=== PATIENT | female | born 1945 | race Caucasian/White ===

== ENCOUNTER 2017-02-13 10:57 | Emergency (ER) | payer MEDICARE ==
[2017-02-13 14:54] VITALS: BP 125/72
[2017-02-13 15:50] LABS: Hematocrit 30 % (35-47); Hemoglobin 9.6 g/dl (12.0-16.0); Mean Corpuscular HGB Conc 32 g/dl (31-36); Mean Corpuscular Hemoglobin 31 pg (27-31); Mean Corpuscular Volume 96 fL (80-97); Mean Platelet Volume 8 um3 (7.4-10.4); Red Cell Distribution Width 14 % (10.5-15); White Blood Count 5.9 10^3/ul (3.5-10.8)
[2017-02-13 16:05] LABS: Albumin 2.9 g/dL (3.2-5.2); C Reactive Protein 2.36 mg/L (< 5.00); Calcium 8.5 mg/dL (8.6-10.3); EGFR African American 46.8 (>60); EGFR Non-African American 36.4 (>60); Globulin 2.7 g/dL (2-4); Potassium 3.9 mmol/L (3.5-5.0); Total Bilirubin 0.3 mg/dL (0.2-1.0); Total Protein 5.6 g/dL (6.4-8.9)
[2017-02-13 16:18] LABS: Urine Bilirubin Negative (Negative); Urine Glucose Negative (Negative); Urine Nitrite Negative (Negative)
--- NOTE | 2017-02-14 11:35 | ED ---
Oscar Bansal Alfonso, scribed for Kike Coe MD on 02/13/17 at 1438 . GI/ HPI - HPI Summary HPI Summary: This patient is a 71 year old F presenting to [facility] accompanied by son with a chief complaint of being unable to urinate since this morning, This is acute on chronic. The patient rates the pain 9/10 in severity. Symptoms aggravated by nothing. Symptoms alleviated by nothing. She reports medication noncompliance with Lasix. - History of Current Complaint Chief Complaint: EDUrogenitalProblems Time Seen by Provider: 02/13/17 14:07 Stated Complaint: UNABLE TO URINATE/RX REFILL Hx Obtained From: Patient Onset/Duration: Started Hours Ago, Still Present Timing: Constant Severity: Moderate Current Severity: Moderate Pain Intensity: 9 - /10 Associated Signs and Symptoms: Positive: Other: - unable to urinate Aggravating Factor(s): Nothing Alleviating Factor(s): Nothing - Allergy/Home Medications Allergies/Adverse Reactions: Allergies Allergy/AdvReac Type Severity Reaction Status Date / Time Adalimumab [From Humira] Allergy Rash Verified 02/13/17 13:21 Pregabalin [From Lyrica] Allergy Rash Verified 02/13/17 13:21 PMH/Surg Hx/FS Hx/Imm Hx Sensory History: Denies: Hx Deafness Opthamlomology History: Denies: Hx Legally Blind Infectious Disease History: No Infectious Disease History: Denies: Traveled Outside the [place] in Last 30 Days - Family History Known Family History: Positive: Cardiac Disease, Diabetes - Social History Alcohol Use: Occasionally Substance Use Type: Reports: None Smoking Status (MU): Never Smoked Tobacco Review of Systems Negative: Fever Positive: other - unable to urinate All Other Systems Reviewed And Are Negative: Yes Physical Exam Triage Information Reviewed: Yes Vital Signs On Initial Exam: Initial Vitals Temp Pulse Resp BP Pulse Ox 99.1 F 81 18 117/68 93 02/13/17 11:00 02/13/17 11:00 02/13/17 11:00 02/13/17 11:00 02/13/17 11:00 Vital Signs Reviewed: Yes Appearance: Positive: Well-Appearing, No Pain Distress Skin: Positive: Warm, Skin Color Reflects Adequate Perfusion, Dry Head/Face: Positive: Normal Head/Face Inspection Eyes: Positive: Normal ENT: Positive: Normal ENT inspection Neck: Positive: Supple, Nontender Respiratory/Lung Sounds: Positive: Clear to Auscultation Cardiovascular: Positive: RRR Abdomen Description: Positive: Nontender, Soft Bowel Sounds: Positive: Present Musculoskeletal: Positive: Other - Chronic venous stasis changes. Peripheral edema bilateral LE. Neurological: Positive: Normal, Sensory/Motor Intact, Alert, Oriented to Person Place, Time, CN Intact II-III Psychiatric: Positive: Affect/Mood Appropriate - [place] Coma Scale Coma Scale Total: 15 Diagnostics - Vital Signs Vital Signs Temp Pulse Resp BP Pulse Ox 02/13/17 13:16 98.4 F 81 19 125/78 93 02/13/17 13:14 125/78 02/13/17 11:00 99.1 F 81 18 117/68 93 - Laboratory Lab Results: Lab Results 02/13/17 02/13/17 02/13/17 Range/Units 15:43 15:43 15:43 WBC 5.9 (3.5-10.8) 10^3/ul RBC 3.10 L (4.0-5.4) 10^6/ul Hgb 9.6 L (12.0-16.0) g/dl Hct 30 L (35-47) % MCV 96 (80-97) fL MCH 31 (27-31) pg MCHC 32 (31-36) g/dl RDW 14 (10.5-15) % Plt Count 212 (150-450) 10^3/ul MPV 8 (7.4-10.4) um3 Neut % (Auto) 72.8 (38-83) % Lymph % (Auto) 14.9 L (25-47) % [place] % (Auto) 9.6 H (1-9) % Eos % (Auto) 2.0 (0-6) % Baso % (Auto) 0.7 (0-2) % Absolute Neuts (auto) 4.3 (1.5-7.7) 10^3/ul Absolute Lymphs (auto) 0.9 L (1.0-4.8) 10^3/ul Absolute Monos (auto) 0.6 (0-0.8) 10^3/ul Absolute Eos (auto) 0.1 (0-0.6) 10^3/ul Absolute Basos (auto) 0 (0-0.2) 10^3/ul Absolute Nucleated RBC 0 10^3/ul Nucleated RBC % 0 Sodium 139 (133-145) mmol/L Potassium 3.9 (3.5-5.0) mmol/L Chloride 103 (101-111) mmol/L Carbon Dioxide 33 H (22-32) mmol/L Anion Gap 3 (2-11) mmol/L BUN 30 H (6-24) mg/dL Creatinine 1.43 H (0.51-0.95) mg/dL Est GFR ( Amer) 46.8 (>60) Est GFR (Non-Af Amer) 36.4 (>60) BUN/Creatinine Ratio 21.0 H (8-20) Glucose 124 H (70-100) mg/dL Calcium 8.5 L (8.6-10.3) mg/dL Total Bilirubin 0.30 (0.2-1.0) mg/dL AST 26 (13-39) U/L ALT 19 (7-52) U/L Alkaline Phosphatase 112 H (34-104) U/L C-Reactive Protein 2.36 (< 5.00) mg/L B-Natriuretic Peptide 309 H ( - 100) pg/mL Total Protein 5.6 L (6.4-8.9) g/dL Albumin 2.9 L (3.2-5.2) g/dL Globulin 2.7 (2-4) g/dL Albumin/Globulin Ratio 1.1 (1-3) Urine Color Urine Appearance Urine pH (5-9) Ur Specific [place] (1.010-1.030) Urine Protein (Negative) Urine Ketones (Negative) Urine Blood (Negative) Urine Nitrate (Negative) Urine Bilirubin (Negative) Urine Urobilinogen (Negative) Ur Leukocyte Esterase (Negative) Urine Glucose (Negative) 02/13/17 Range/Units 16:00 WBC (3.5-10.8) 10^3/ul RBC (4.0-5.4) 10^6/ul Hgb (12.0-16.0) g/dl Hct (35-47) % MCV (80-97) fL MCH (27-31) pg MCHC (31-36) g/dl RDW (10.5-15) % Plt Count (150-450) 10^3/ul MPV (7.4-10.4) um3 Neut % (Auto) (38-83) % Lymph % (Auto) (25-47) % [place] % (Auto) (1-9) % Eos % (Auto) (0-6) % Baso % (Auto) (0-2) % Absolute Neuts (auto) (1.5-7.7) 10^3/ul Absolute Lymphs (auto) (1.0-4.8) 10^3/ul Absolute Monos (auto) (0-0.8) 10^3/ul Absolute Eos (auto) (0-0.6) 10^3/ul Absolute Basos (auto) (0-0.2) 10^3/ul Absolute Nucleated RBC 10^3/ul Nucleated RBC % Sodium (133-145) mmol/L Potassium (3.5-5.0) mmol/L Chloride (101-111) mmol/L Carbon Dioxide (22-32) mmol/L Anion Gap (2-11) mmol/L BUN (6-24) mg/dL Creatinine (0.51-0.95) mg/dL Est GFR ( Amer) (>60) Est GFR (Non-Af Amer) (>60) BUN/Creatinine Ratio (8-20) Glucose (70-100) mg/dL Calcium (8.6-10.3) mg/dL Total Bilirubin (0.2-1.0) mg/dL AST (13-39) U/L ALT (7-52) U/L Alkaline Phosphatase (34-104) U/L C-Reactive Protein (< 5.00) mg/L B-Natriuretic Peptide ( - 100) pg/mL Total Protein (6.4-8.9) g/dL Albumin (3.2-5.2) g/dL Globulin (2-4) g/dL Albumin/Globulin Ratio (1-3) Urine Color Yellow Urine Appearance Clear Urine pH 6.0 (5-9) Ur Specific [place] 1.015 (1.010-1.030) Urine Protein Negative (Negative) Urine Ketones Negative (Negative) Urine Blood Negative (Negative) Urine Nitrate Negative (Negative) Urine Bilirubin Negative (Negative) Urine Urobilinogen Negative (Negative) Ur Leukocyte Esterase Negative (Negative) Urine Glucose Negative (Negative) Result Diagrams: 02/13/17 15:43 09/08/17 15:43 Lab Statement: Any lab studies that have been ordered have been reviewed, and results considered in the medical decision making process. GIGU Course/Dx - Course Course Of Treatment: This was a difficult evaluation. Ms. Mg presented with a confusing story of not being able to urinate and not wanting to take her lassix because she urinated too much. I tried to get records from Dr. Maria but she is a new patient and the records haven't arrived yet. I tried for quite some time to get records from [place] as she is on many medications and her history is cloudy as she is not a good historian and her son who brings her in lives here and hasn't been involved in her care until now. Eventually, I asked the hospitalists to consult and it seems that Ms. Mg now is only concerned about being out of her pain medications and has no other C/O. The RN in her [place]. MD's office said that she often finishes her medication too early in the month. I will give her a script to get her through until her 1st appointment with Dr. Maria. - Diagnoses Provider Diagnoses: Chronic pain - Physician Notifications Discussed Care Of Patient With: Alexa Bowie Time Discussed With Above Provider: 17:18 Instructed by Provider To: Other - Consulted Dr. Bowie (hospitalist) who will see the pt in the ED. Discharge - Discharge Plan Condition: Stable Disposition: HOME Prescriptions: oxyCODONE SR TAB(*) [Oxycontin 10 mg (*)] 10 mg PO Q8HR #20 tab.sr MDD 3 Patient Education Materials: Chronic Pain (ED) Referrals: [facility]ERR[facility] [Outside] - 3 Days Neeraj Sharma MD [Medical Doctor] - 3 Days The documentation as recorded by the Oscar rider Alfonso accurately reflects the service I personally performed and the decisions made by me, Kike Coe MD.
== END 2017-02-13 18:52 | disposition home or self-care (01) ==
LOC: ED 10:57
DX: G89.29 Other chronic pain (principal); Z91.14 Patient's other noncompliance with medication regimen; R33.9 Retention of urine, unspecified
CPT/HCPCS: 36415; 80053; 81003; 83880; 85025; 86140; 99284

== ENCOUNTER 2018-09-12 16:49 | Emergency (ER) | payer MEDICARE, MEDICAID ==
--- OUTSIDE RECORDS SUMMARY | 2018-09-12 16:54 | XMS REPORT | Continuity of Care Document ---
:1945 External Reference #:[id number] Author Name Aren Phillips DO Address [address] [place] [address] Care Team Providers Name Role Phone Tanisha Maria MD Care Team Information Rewrite Editor Unavailable Tanisha Maria MD Primary Care Physician Unavailable Payers Date Identification Numbers Payment Provider Subscriber Policy Number: [id number] Medicare Beto Mg PayID: [id number] [facility] [address] [place] [address] Policy Number: [id number] Medicaid/Medicare Beto Mg Group Name: 2 1 [facility] [employer] PayID: [id number] [address] [place] [address] Advance Directives Description No Information Available Problems Description No Information Family History Description No Information Available Social History Type Date Description Comments Sex Unknown Tobacco Use Start: Unknown Patient has never smoked Smoking Status Reviewed: 08/23/18 Patient has never smoked Allergies, Adverse Reactions, Alerts Date Description Reaction Status Severity Comments 05/06/2018 Adalimumab Free Text Active Severe 05/06/2018 Codeine Active 05/06/2018 Iodine Active 05/06/2018 Lyrica Free Text Active Medications Medication Date Status Form Strength Qnty SIG Indications Ordering Provider Vesicare 06/07 Active Tablets 5mg 90tab 1 by mouth s every day DO Alan Esomeprazole 04/[address] 40mg 90cap 1 tab bid X 6 K21.9 Crow Magnesium s wks then once Tanisha, a day Shingrix 02/03 Active Suspension 50mcg/0.5 1unit intramuscular Maria Rec ML s x 1 then Tanisha, repeat in 4 MD months Sertraline 11/30 Active Tablets 100mg 90tab 1 by mouth F32.9 Maria, HCL s every day MD Tanisha Fentanyl 08/11 Active Patches 25mcg/HR 1 patch every 72HR 72 hours Zolpidem 05/21 Active Tablets 10mg 30tab 1/2 to1 tab by Crow Tartrate /2016 s mouth every Tanisha, night at MD bedtime as needed mdd 1 Furosemide Active Tablets 40mg 30tab 1/2 in in the Maria, / s morning 1/2 in Tanisha, at night by mouth daily Ferrous Active Tablets 324(65Fe) 1 by mouth Unknown Sulfate mg once a day Gabapentin Active Capsules 300mg now 4 a day---3 times a day as needed Flax Seed Oil Active Capsules 1000mg 2 by mouth Unknown every day Carvedilol Active Tablets 25mg 60tab take 1 tablet Maria, / s by mouth twice Tanisha, a day Pravastatin Active Tablets 40mg 90tab take 1 tablet Maria, Sodium s by mouth once Tanisha, daily Tramadol HCL Active Tablets 50mg tid prn Peg-3350/Elec 06/07 Hx Solution 236gm 4000m by mouth as Aren barclay /2017 Terri Phillips, - DO 08/23 Immunizations CPT Code Status Date Vaccine Lot # [id number] Given 03/04/2018 Influenza Virus Vaccine, Quadrivalent, Split, Preservative Free 54242 Given 07/02/2017 Pneumococcal Conjugate Vaccine 13 Valent For Intramuscular Use 27891 Given 02/19/2017 Influenza Virus Vaccine, Quadrivalent, Split, Preservative Free 75990 Given 12/21/2015 Tetanus, Diphtheria Toxoids/Acellular Pertussis Vaccine 7 Or > 17906 Given 12/21/2015 Pneumococcal Conjugate Vaccine 13 Valent For Intramuscular Use Vital Signs Date Vital Result Comment 08/23/2018 9:46am Height 65 inches 5'5" Weight 182.00 lb BP Systolic 130 mmHg BP Diastolic 76 mmHg Heart Rate 93 /min BMI (Body Mass Index) 30.3 kg/m2 06/07/2018 10:53am Height 65 inches 5'5" Weight 189.00 lb BP Systolic 130 mmHg BP Diastolic 80 mmHg Heart Rate 92 /min BMI (Body Mass Index) 31.4 kg/m2 Results Test Date Facility Test Result H/L Range Note CBC W/Auto 07/19/2018 [facility] White Blood 6.0 3/UL 4.8-10.8 Differential [address] Count Ser (!) [place] [address] Auto CNT [phone] RBC Red Blood Count 3.56 X106/UL Low 4.20-6.20 Hemoglobin Blood 11.3 g/dL Low 12.0-18.0 Hematocrit 37.3 % 35-52 MCV (Corpuscular Volume) 105.0 FL High 79-97 MCH (Corpuscular Hemoglobin) 31.9 pg High 27-31 MCHC (Corpuscular Hemog Conc) 30.4 g/dL Low 32.0-36.0 RDW 16.3 % High 10.5-15.0 Platelet Count Blood Auto CNT 133 X103/UL Low 150-450 MPV 9.0 FL 7.4-10.4 Lymph% 30.7 % 20.0-45.0 [place]% 5.6 % 1.0-9.0 Neutrophil % 63.7 % 38.0-83.0 Absolute Lymphocytes 1.8 X103/UL 1.0-4.8 Absolute Monocytes 0.3 X103/UL 0.0-0.8 Absolute Neutrophils 3.8 X103/UL 1.5-7.7 CMP(!) 07/19/2018 [facility] Sodium(!) 141 mEq/L 134- 149 [address] [place] [address] [phone] Potassium(!) 4.5 mEq/L 3.6-5.5 Chloride Serum/Plasma(!) 107 mEq/L 94-112 Carbon Dioxide Ser/Plasm(!) 29 mEq/L 21-33 BUN - Urea Nitrogen(!) 38 mg/dL High 6-24 Calcium Ser/Plasma Mass/Vol(!) 9.0 mg/dL 8.6-10.2 Creatinine Serum Mass/Vol(!) 1.7 mg/dL High 0.5-1.4 Glucose Serum(!) 71 mg/dL 70-105 BUN/Creatinine Ratio(!) 22.4 RATIO 8.0-36 Albumin Serum/Plasma(!) 3.9 g/dL 3.5-5.2 Alkaline Phosphatase(!) 109 U/L 39-117 Bilirubin Total Mass/Vol(!) 0.5 mg/dL 0.2-1.3 Ast - Sgot 30 U/L 5-34 Alt - SGPT 50 U/L High 10-40 Protein Total 5.8 g/dL Low 6.2-8.1 Laboratory 07/19/2018 [facility] TSH Thyroid 2.92 0.38- 4.[address] [facility] [place] [address] Hormone(!) [phone] Laboratory 07/19/2018 [facility] Free T4 (Free 0.71 ng/dL N 0.61-1.12 1 test finding Thyroxine) Laboratory 07/19/2018 [facility] Stool Culture SEE RESULT 2, 3 test finding BELOW Laboratory 05/05/2018 N2N/CCD Import Magnesium 2.2 mg/dL 1.9-2.7 test finding Basic 05/05/2018 N2N/CCD Import Anion Gap 7 mmol/L 2-11 Metabolic Panel BUN/Creatinine Ratio 24.7 1 High 8-20 Blood Urea Nitrogen 46 mg/dL High 6-24 Calcium 9.3 mg/dL 8.6-10.3 Chloride 108 mmol/L 101-111 Co2 Carbon Dioxide 29 mmol/L 22-32 Creatinine 1.86 mg/dL High 0.51-0.95 Egfr 32.4 1 4 Egfr Non- 26.8 1 Glucose 59 mg/dL Low 70-100 Potassium 4.1 mmol/L 3.5-5 Sodium 144 mmol/L 135-145 Laboratory test finding 01/21/2018 N2N/CCD Import Potassium 4.4 mmol/L 3.5-5 Laboratory test finding 01/08/2018 N2N/CCD Import Potassium 5.2 mmol/L High 3.5-5 1 [id number] Verbal to EDWARDO GARDNER by [id number] at 0805 on 07/22/18. NO PLAIN CONTAINER RE 3 SEE RESULT BELOW Name: BETO MG : [address]: Aren Phillips DO Acct: [id number] Unit: [id number] AGE: 73 Location: [facility] Re07/19/18 SEX: F Status: REG REF SPEC: [id number] CHRISTIE: 07/19/18-[address]: Aren Phillips DO REQ: [id number] RECD: 07/21/18 STATUS: COMP _ SOURCE: STOOL SPDESC: ORDERED: Stool Culture, O P: Giar/Crypt COMMENTS: [id number] Verbal to EDWARDO GARDNER by [id number] at 0805 on 07/22/18. NO PLAIN CONTAINER RECEIVED Procedure Result Reported Site Stool Culture Final 07/23/18- 1135 ML Result No enteric pathogens isolated Testing for Salmonella, Shigella, Aeromonas, Plesiomonas, Yersinia and Campylobacter are included in a Stool Culture. Vibrio spp not routinely tested for in a stool culture. If testing is desired, please request specifically when placing test order. Sensitivities not routinely performed on stool isolates, as antibiotics may prolong the carriage rate of bacteria. Please contact the microbiology lab if sensitivities are required. Stool Specimen Description Final 07/22/18- 0821 ML Test not performed Shiga Toxin 1 2 Final 07/22/18- 1051 ML Organism 1 Negative Shiga Toxin 1 2 Immunochromatographic Assay CONTINUED ON NEXT PAGE DEPARTMENT OF PATHOLOGY, [address] [place] [address] Lewis Car M.D. Director [facility] # [id number] Patient: BETO MG [id number] (Continued) Specimen: [id number] Collected: 07/19/18-1002 Received: 07/21/18-1546 (Continued) Procedure Result Reported Site Shiga Toxin 1 2 Final (continued) 07/22/18- 1051 O P: Giardia/Cryptospor Screen Final 07/23/18- 1402 ML Organism 1 Neg Cryptosporidium/Giardia Giardia and cryptosporidium antigen testing performed by enzyme immunoassay. If patient is immunocompromised or has traveled to or is from a developing country, a full ova and parasite exam with microscopic (OPMIC) is recommended. All samples will be held 21 days in case full ova and parasite testing is requested. Contact the Microbiology Department at [phone]. TEST LIMITATIONS: As with all diagnostic procedures, the results obtained should be used in conjunction with other clinical information available the physician, including confirmation by another method. Negative results can occur in samples containing antigen below lower limits of detection of the assay. One negative specimen does not rule out the possibility of a parasitic infection. To improve detection it is recommended that three specimens be collected on separate days over a period of not more than seven days. The use of colonic washes, aspirates or other diluted sample types has not been established and could affect the performance of the assay. Stool samples contaminated with an oily or particulate base (eg. Barium, mineral oil etc.) could interfere with the test and are not recommended. * ML - Main Lab . END OF REPORT DEPARTMENT OF PATHOLOGY, [address] [place] [address] Lewis Car M.D. Director [facility] # [id number] 4 Because ethnic data is not always readily available, this report includes an eGFR for both -Americans and non- Americans. The National Kidney Disease Education Program (NKDEP) does not endorse the use of the MDRD equation for patients that are not between the ages of 18 and 70, are , have extremes of body size, muscle mass, or nutritional status, or are non- or non-. According to the National Kidney Foundation, irrespective of diagnosis, the stage of the disease is based on the level of kidney function: Stage Description GFR(mL/min/1.73 m(2)) 1 Kidney damage with normal or decreased GFR 90 2 Kidney damage with mild decrease in GFR 60-89 3 Moderate decrease in GFR 30-59 4 Severe decrease in GFR 15-29 5 Kidney failure <15 (or dialysis) Procedures Date Code Description Status 02/24/2018 77427 Zoster (Shingles) Vaccine (HZV), Recombinant, Subunit, Completed Adjuvanted Encounters Type Date Location Provider Dx Diagnosis Office Visit 06/07/2018 Gastroenterology Aren Phillips K21.9 Gastro- esophageal 11:[facility] DO reflux disease without esophagitis Z98.84 Bariatric surgery status Z86.010 Personal history of colonic polyps R10.13 Epigastric pain Plan of Treatment Future Appointment(s):09/29/2018 11:00 am - Aren Phillips DO at [facility] [id number]/23/2018 - Aren Phillips DOR10.13 Epigastric painZ86.010 Personal history of colonic oterjjR28.84 Bariatric surgery ytihmiC13.9 Obesity, pzkmfnfheekW72.9 Anemia, unspecified
--- OUTSIDE RECORDS SUMMARY | 2018-09-12 16:55 | XMS REPORT | Continuity of Care Document ---
:1945 External Reference #:[id number] Author Name Halina Fofana Care Team Providers Name Role Phone Tanisha Maria MD Primary Care Physician Unavailable Payers Date Identification Numbers Payment Provider Subscriber Policy Number: [id number] Medicare Elsi Mg PayID: [id number] [address] [place] [address] Policy Number: [id number] Medicaid Elsi Mg Group Name: 1 1 [address] PayID: [id number] [place] [address] Advance Directives Description No Information Available Problems Date Description Provider Status Onset: 02/19/2017 Hyperlipidemia Tanisha Maria M.D. Active Onset: 02/19/2017 Chronic kidney disease stage 3 Tanisha Maria M.D. Active Note: hx of chronic NSAID use ( celebrex) HTN kidney disease , gastric bypass Onset: 02/19/2017 Essential hypertension Tanisha Maria M.D. Active Onset: 02/19/2017 Degeneration of lumbar intervertebral Tanisha Maria M.D. Active disc Onset: 02/19/2017 Degeneration of thoracic intervertebral Tanisha Maria M.D. Active disc Onset: 02/19/2017 Urinary incontinence Tanisha Maria M.D. Active Onset: 02/19/2017 Depressive disorder Tanisha Maria M.D. Active Onset: 02/19/2017 Insomnia Tanisha Maria M.D. Active Onset: 03/05/2017 Scoliosis of lumbar spine Tanisha Maria M.D. Active Onset: 03/10/2017 Diastolic dysfunction Tanisha Maria M.D. Active Note: grade 1 Onset: 03/10/2017 Pulmonary hypertension Tanisha Maria M.D. Active Note: mild to moderate Onset: 04/08/2017 Anemia Tanisha Maria M.D. Active Note: gastric bypass , CKD Onset: 05/21/2017 Diverticular disease Tanisha Maria M.D. Active Note: per old record Onset: 06/09/2017 Osteoporosis Tanisha Maria M.D. Active Note: hip Onset: Obstructive sleep apnea syndrome Active Onset: 11/30/2017 Ventral incisional hernia of anterior Tanisha Maria M.D. Active abdominal wall without obstruction AND without gangrene Family History Date Family Member(s) Observation Comments : (age 62 Years) Father due to Renal Failure Mother 93 Mother Diabetes Type II Mother Hypertension Children 2 Social History Type Date Description Comments Sex Unknown Lives With Alone sousa [place] housing Occupation Retired used to work as chairman & chief executive officer Tobacco Use Start: Unknown Never Smoked Cigarettes Smoking Status Reviewed: 08/19/18 Never Smoked Cigarettes ETOH Use Denies alcohol use Tobacco Use Start: Unknown Patient has never smoked Recreational Drug Use Denies Drug Use Exercise Type/Frequency Walks daily Allergies, Adverse Reactions, Alerts Date Description Reaction Status Severity Comments 02/19/2017 Lyrica rash Active 05/19/2017 Contrast Dye Hives, trouble breathing Active Severe 05/19/2017 Adalimumab Hives, Trouble breathing Active Severe 08/04/2017 Iodine Active hives 08/04/2017 Codeine Active unknown Medications Medication Date Status Form Strength Qnty SIG Indications Ordering Provider Esomeprazole 04/[address] 40mg 90cap 1 tab bid K21.9 Tanisha Magnesium jaylyn Maria M.D. Cane 04/05 Active Misc 1unit standard Tanisha /2018 s adjustabl Crow e height M.DDanny cane. Shingrix 02/03 Active Suspension 50mcg 1unit intramusc Tanisha /2018 Rec s ular x 1 Crow, then Abbey repeat in 4 months Abdominal 01/18 Active Misc as needed Tanisha Binder/Elastic Mayela Maria M.D. Sertraline HCL 11/30 Active Tablets 100mg 90tab 1 by F32.9 s mouth Crow, every day M.D. (pt is back to taking 75mg) Fentanyl 08/11 Active Patches 25mcg/HR 1 patch 72HR every 72 hours Zolpidem Tartrate 05/21 Active Tablets 10mg 30tab take 06/09 Dilan s to 1 LELO Coughlin tablet by mouth every evening at bedtime if needed Calcium 500 D3 04/29 Active Tablets 600-500mg 2 tabs Tanisha /2017 -mg-Unit twice a Maria, day otc M.D. Magnesium Oxide 04/29 Active Capsules 400mg once a Tanisha -MG Supplement day Jaime Maria. Compression 04/29 Active Misc 1Pair Large I50.32 Tanisha Stockings 20-30 mm Crow hg as M.D. needed Furosemide Active Tablets 40mg 30tab /2 in in Tanisha / s the Crow, morning M.D. 1/2 in at night by mouth daily Ferrous Sulfate Active Tablets DR 325(65Fe) 1 by Unknown /0000 mg mouth once a day Multi Vitamin Active Tablets 1 by Unknown Daily /0000 mouth every day Gabapentin Active Capsules 300mg now 4 a day---3 times a day as needed Flax Seed Oil Active Capsules 1000mg 2 by Unknown /0000 mouth every day Vitamin B12 Active Liquid once qod Carvedilol Active Tablets 25mg 60tab take 1 Tanisha s tablet by Maria, mouth M.D. twice a day Spine Injections Active q 3-6 / months Pravastatin Active Tablets 40mg 90tab take 1 Tanisha Sodium s tablet by Maria, mouth M.D. once daily Tramadol HCL Active Tablets 50mg tid prn Vesicare Active Tablets 5mg 1 by Unknown /0000 mouth every day Acetaminophen Active Tablets 500mg 2 by Unknown /0000 mouth twice a day prn Melatonin Active Capsules 10mg 1 tab by Unknown /0000 mouth at bedtime as needed for insomnia Pantoprazole 04/[address] 20mg 60tab once a K21.9 Tanisha Sodium s day 06/09 Maria, - hour M.D. 04/07 before breakfast Triamcinolone 09/25 Hx Cream 0.1% 80gm apply R21 Dilan Acetonide thin film LELO Coughlin - twice 11/30 daily Famotidine 08/27 Hx Tablets 40mg 60tab take one K21.9 Tanisha s tablet by Crow, - mouth at M.D. 04/07 night Sertraline HCL 08/27 Hx Tablets 50mg 45tab 1 and 06/09 F33.1 Noman E. s tabs by Benita, - mouth M.D. 11/30 every day Citalopram 08/13 Hx Tablets 20mg 30tab 1 by F33.1 Tanisha Hydrobromide s mouth Crow, - every day M.D. 08/27 x 10 days then 1 tablet every other day for a week then 1 tab every 2 days for a week then stop Tolterodine 07/02 Hx Tablets 1mg 90tab once a N39.46 Tanisha Tartrate day Maria, - M.D. 03/30 Lidocare 05/21 Hx Patches 4% 30uni apply M47.814 Tanisha Back/Shoulder ts every 12 Maria, - hrs as M.D. 05/21 needed Lidoderm 05/21 Hx Patches 5% 30uni 1 patch M47.814 Tanisha ts at the Maria, - site of M.D. 07/02 back pain x 12hours on and 12 hours off in a 24 hour period Zolpidem Tartrate 04/29 Hx Tablets 5mg 30tab take one s tablet by Crow, - mouth at M.D. 05/21 bedtime as needed for insomnia; maximum daily dose=1 Torsemide 04/09 Hx Tablets 20mg 30tab 1 tab Tanisha /2017 s once a Crow, - week M.D. 04/29 Fentanyl 02/19 Hx Patches 50mcg/HR 10uni 1 patch Carol /2017 72HR ts every 72 Cotton, - hours M.D. 08/13 Oxycodone HCL 02/19 Hx Tablets 5mg 120ta take 1 bs capsules Cotton, - by mouth M.D. 07/02 every 4- hours as needed for severe pain maximum daily dose=6 Metal Fitter 00 Hx Tablets 5mg Unknown /0000 - 02/19 Oxycontin 00 Hx Tab ER 12H 10mg 10mg Unknown /0000 Abuse-Det every 8 - hours po. 02/[address] 40mg 90cap 1 by Tanisha Magnesium / s mouth Maria, - every day M.D. 04/07 Zolpidem Tartrate Hx Tablets 10mg 1 tab by Unknown /0000 mouth - every 04/29 night bedtime as needed Tizanidine HCL Hx Capsules 4mg 1/2 to 1 Unknown /0000 tab q 8 - hrs prn 02/22 Citalopram Hx Tablets 40mg 30tab 1 by Carol Hydrobromide / s mouth Cotton, - every day M.D. 08/13 Fentanyl Hx Patches 50mcg/HR one Unknown /0000 72HR topical - every Forteo Hx Solution 600mcg/2. inject 4ML 20mcg - subcutane 05/18 ou once daily Vitamin D3 Super Hx Capsules 2000Unit 1 by Unknown Strength /0000 mouth - every day 11/30 Prochlorperazine Hx Tablets 5mg 1 tab Unknown Maleate /0000 every 6 - hrs takes 04/29 it once night for nausea caused by pain Metaxalone Hx Tablets 800mg Take 1/2 Unknown /0000 Tablet By - Mouth AT 05/05 Bedtime as needed Potassium Hx Tablets ER 10Meq 90tab take 1 Tanisha Chloride Celsa ER /0000 s tablet by Maria, - mouth M.D. 12/28 daily Medications Administered in Office Medication Date Status Form Strength Qnty SIG Indications Ordering Provider Desire Administered Injection Nurse Visit Injection, 018 C Denosumab, 1MG Immunizations CPT Code Status Date Vaccine Lot # [id number] Given 06/25/2018 Zoster (Shingles) Vaccine (HZV), Recombinant, Subunit, Adjuvanted 21257 Given 03/04/2018 Influenza Virus Vaccine, Quadrivalent, Split, Preservative Free 51252 Given 02/24/2018 Zoster (Shingles) Vaccine (HZV), Recombinant, Subunit, Adjuvanted 20849 Given 07/02/2017 Pneumococcal Conjugate Vaccine 13 Valent For [id number] Intramuscular Use 08755 Given 02/19/2017 Influenza Virus Vaccine, Quadrivalent, Split, [id number] Preservative Free 62556 Given 12/21/2015 Tdap - Tetanus/Diptheria/Acellular Pertussis 90626 Given 12/21/2015 Pneumococcal Conjugate Vaccine 13 Valent For Intramuscular Use Vital Signs Date Vital Result Comment 08/19/2018 9:53am Height 64 inches 5'4" Weight 184.00 lb Heart Rate 80 /min BP Systolic Sitting 111 mmHg BP Diastolic Sitting 62 mmHg O2 % BldC Oximetry 93 % BMI (Body Mass Index) 31.6 kg/m2 06/10/2018 10:11am Height 64 inches 5'4" Weight 186.00 lb Heart Rate 84 /min BP Systolic 120 mmHg BP Diastolic 84 mmHg Body Temperature 98.2 F O2 % BldC Oximetry 90 % BMI (Body Mass Index) 31.9 kg/m2 05/13/2018 1:08pm Height 64 inches 5'4" Weight 188.00 lb w/o shoes Heart Rate 90 /min BP Systolic Sitting 108 mmHg LA reg cuff BP Diastolic Sitting 66 mmHg LA reg cuff BP Systolic Standing 120 mmHg LA reg cuff BP Diastolic Standing 72 mmHg LA reg cuff Respiratory Rate 18 /min BMI (Body Mass Index) 32.3 kg/m2 05/05/2018 10:49am Height 64 inches 5'4" Weight 188.00 lb Heart Rate 90 /min BP Systolic Sitting 124 mmHg BP Diastolic Sitting 78 mmHg O2 % BldC Oximetry 91 % BMI (Body Mass Index) 32.3 kg/m2 04/07/2018 10:50am Height 64 inches 5'4" Weight 189.00 lb Heart Rate 88 /min BP Systolic Sitting 118 mmHg BP Diastolic Sitting 76 mmHg O2 % BldC Oximetry 95 % BMI (Body Mass Index) 32.4 kg/m2 12/30/2017 12:16pm Height 64 inches 5'4" Weight 190.00 lb Heart Rate 82 /min BP Systolic Sitting 122 mmHg BP Diastolic Sitting 72 mmHg O2 % BldC Oximetry 93 % BMI (Body Mass Index) 32.6 kg/m2 12/15/2017 2:44pm Heart Rate 66 /min BP Systolic Sitting 132 mmHg BP Diastolic Sitting 84 mmHg Respiratory Rate 18 /min Body Temperature 98.2 F 12/04/2017 9:21am Height 64 inches 5'4" Weight 180.00 lb Heart Rate 78 /min BP Systolic Sitting 128 mmHg BP Diastolic Sitting 84 mmHg Respiratory Rate 18 /min Body Temperature 98.3 F BMI (Body Mass Index) 30.9 kg/m2 11/30/2017 10:43am Height 64 inches 5'4" Weight 185.00 lb Heart Rate 85 /min BP Systolic Sitting 118 mmHg BP Diastolic Sitting 78 mmHg Pain Level 5 O2 % BldC Oximetry 94 % BMI (Body Mass Index) 31.8 kg/m2 10/27/2017 1:20pm Height 64 inches 5'4" Weight 177.00 lb Heart Rate 72 /min BP Systolic Sitting 122 mmHg BP Diastolic Sitting 80 mmHg O2 % BldC Oximetry 97 % BMI (Body Mass Index) 30.4 kg/m2 09/29/2017 8:48am Height 64 inches 5'4" Weight 177.00 lb Heart Rate 84 /min BP Systolic 144 mmHg BP Diastolic 88 mmHg Respiratory Rate 16 /min Body Temperature 98.4 F BMI (Body Mass Index) 30.4 kg/m2 09/25/2017 10:52am Weight 177.25 lb Heart Rate 86 /min BP Systolic 140 mmHg BP Diastolic 82 mmHg Body Temperature 96.5 F O2 % BldC Oximetry 92 % 08/27/2017 11:18am Weight 168.00 lb Heart Rate 82 /min BP Systolic Sitting 114 mmHg BP Diastolic Sitting 70 mmHg O2 % BldC Oximetry 96 % 08/13/2017 10:10am Weight 172.00 lb Heart Rate 90 /min BP Systolic Sitting 120 mmHg BP Diastolic Sitting 78 mmHg Body Temperature 98.1 F Pain Level 6 sides of abdomen O2 % BldC Oximetry 95 % 07/02/2017 10:24am Weight 164.00 lb Heart Rate 79 /min BP Systolic Sitting 130 mmHg BP Diastolic Sitting 68 mmHg O2 % BldC Oximetry 97 % 05/21/2017 9:45am Weight 171.12 lb Heart Rate 93 /min BP Systolic Sitting 120 mmHg BP Diastolic Sitting 70 mmHg O2 % BldC Oximetry 93 % 05/19/2017 10:07am Height 64.25 inches 5'4.25" Weight 167.00 lb No shoes BP Systolic 122 mmHg Lue reg cuff BP Diastolic 74 mmHg Lue reg cuff BP Systolic Sitting 110 mmHg Rue reg cuff BP Diastolic Sitting 70 mmHg Rue reg cuff BP Systolic Standing 114 mmHg Rue reg cuff BP Diastolic Standing 70 mmHg Rue reg cuff Respiratory Rate 15 /min BMI (Body Mass Index) 28.4 kg/m2 04/29/2017 9:42am Weight 160.00 lb Heart Rate 91 /min BP Systolic Sitting 132 mmHg BP Diastolic Sitting 78 mmHg Body Temperature 98.8 F O2 % BldC Oximetry 93 % 02/19/2017 12:36pm Height 65.1 inches 5'5.10" Weight 185.00 lb Heart Rate 87 /min BP Systolic Sitting 148 mmHg BP Diastolic Sitting 90 mmHg Body Temperature 98.8 F O2 % BldC Oximetry 95 % BMI (Body Mass Index) 30.7 kg/m2 Results Test Date Facility Test Result H/L Range Note Basic Metabolic 06/10/2018 [facility] Sodium 143 mmol/L N 135- [address] [place] [address] [phone] Potassium 3.9 mmol/L N 3.5-5.0 Chloride 106 mmol/L N 101-111 Co2 Carbon Dioxide 32 mmol/L N 22-32 Anion Gap 5 mmol/L N 2-11 Glucose 123 mg/dL High 70-100 Blood Urea Nitrogen 40 mg/dL High 6-24 Creatinine 1.74 mg/dL High 0.51-0.95 BUN/Creatinine Ratio 23.0 High 8-20 Calcium 9.0 mg/dL N 8.6-10.3 Egfr Non- 28.8 >60 Egfr 34.9 >60 1 Inr/Protime 06/10/2018 [facility] Inr 0.92 N 0.77-1.[address] [place] [address] [phone] Laboratory test 06/10/2018 [facility] Partial 29.7 seconds N 26.0-36.[address] [place] [address] PTT [phone] Hepatitis C 06/10/2018 [facility] HCV Index < 0.0 Index Antibody [address] [place] [address] [phone] Hepatitis C Antibody Nonreactive Nonreactive Laboratory test 05/05/2018 [facility] Magnesium 2.2 mg/dL N 1.9-2.7 finding [address] [place] [address] [phone] Basic Metabolic 05/05/2018 [facility] Sodium 144 mmol/L N 135- 145 Panel [address] [place] [address] [phone] Potassium 4.1 mmol/L N 3.5-5.0 Chloride 108 mmol/L N 101-111 Co2 Carbon Dioxide 29 mmol/L N 22-32 Anion Gap 7 mmol/L N 2-11 Glucose 59 mg/dL Low 70-100 Blood Urea Nitrogen 46 mg/dL High 6-24 Creatinine 1.86 mg/dL High 0.51-0.95 BUN/Creatinine Ratio 24.7 High 8-20 Calcium 9.3 mg/dL N 8.6-10.3 Egfr Non- 26.8 >60 Egfr 32.4 >60 2 Laboratory test 01/21/2018 [facility] Potassium 4.4 mmol/L N 3.5-5.0 finding [address] [place] [address] [phone] Laboratory test 01/08/2018 [facility] Potassium 5.2 mmol/L High 3.5-5.0 finding [address] [place] [address] [phone] Basic Metabolic 12/25/2017 [facility] Sodium 141 mmol/L N 135- 145 Panel [address] [place] [address] [phone] Chloride 105 mmol/L N 101-111 Co2 Carbon Dioxide 27 mmol/L N 22-32 Glucose 100 mg/dL N 70-100 Blood Urea Nitrogen 47 mg/dL High 6-24 Creatinine 1.71 mg/dL High 0.51-0.95 BUN/Creatinine Ratio 27.5 High 8-20 Calcium 9.0 mg/dL N 8.6-10.3 Egfr Non- 29.5 >60 Egfr 35.7 >60 3 Potassium 5.3 mmol/L High 3.5-5.0 Anion Gap 9 mmol/L N 2-11 Laboratory test 10/21/2017 [facility] Blood Urea 56 mg/dL High 6-24 finding [address] [facility] [place] [address] [phone] Creatinine 10/21/2017 [facility] Creatinine 1.75 mg/dL High 0.51-0.[address] [place] [address] [phone] Egfr Non- 28.7 >60 Egfr 37.0 >60 4 Creatinine Clearance 08/24/2017 [facility] Urine Collection Time [address] [place] [address] [phone] Urine Total Volume 2200 mL Urine Random Creatinine 32.23 mg/dL Creatinine 1.44 mg/dL High 0.51-0.95 Creatinine Clearance 34 mL/min Low 88-128 CBC Auto Diff 08/24/2017 [facility] White Blood 4.5 10^3/uL N 3.5-10.[address] [place] [address] [phone] Red Blood Count 3.82 10^6/uL Low 4.0-5.4 Hemoglobin 11.9 g/dL Low 12.0-16.0 Hematocrit 37 % N 35-47 Mean Corpuscular Volume 97 fL N 80-97 Mean Corpuscular Hemoglobin 31 pg N 27-31 Mean Corpuscular HGB Conc 32 g/dL N 31-36 Red Cell Distribution Width 20 % High 10.5-15 Platelet Count 138 10^3/uL Low 150-450 Mean Platelet Volume 8 um3 N 7.4-10.4 Abs Neutrophils 2.7 10^3/uL N 1.5-7.7 Abs Lymphocytes 1.3 10^3/uL N 1.0-4.8 Abs Monocytes 0.4 10^3/uL N 0-0.8 Abs Eosinophils 0.1 10^3/uL N 0-0.6 Abs Basophils 0 10^3/uL N 0-0.2 Abs Nucleated RBC 0 10^3/uL Granulocyte % 59.6 % N 38-83 Lymphocyte % 28.3 % N 25-47 Monocyte % 9.0 % High 0-7 Eosinophil % 2.2 % N 0-6 Basophil % 0.9 % N 0-2 Nucleated Red Blood Cells % 0.1 Total Protein 24HR 08/24/2017 [facility] Urine Collection Time [address] [place] [address] [phone] Urine Total Volume 2200 mL Urine Random Total Protein 10 mg/dL Urine Total Protein/24HR 220 mg/24Hr High 0-165 Comp Metabolic Panel 08/24/2017 [facility] Sodium 139 mmol/L N 133-[address] [place] [address] [phone] Chloride 107 mmol/L N 101-111 Co2 Carbon Dioxide 28 mmol/L N 22-32 Glucose 78 mg/dL N 70-100 Blood Urea Nitrogen 35 mg/dL High 6-24 Creatinine 1.47 mg/dL High 0.51-0.95 One Over Creatinine 0.68 mg/dL N 0.51-0.95 BUN/Creatinine Ratio 23.8 High 8-20 Calcium 8.9 mg/dL N 8.6-10.3 Total Protein 6.2 g/dL Low 6.4-8.9 Albumin 3.8 g/dL N 3.2-5.2 Globulin 2.4 g/dL N 2-4 Albumin/Globulin Ratio 1.6 N 1-3 Total Bilirubin 0.40 mg/dL N 0.2-1.0 Alkaline Phosphatase 74 U/L N 34-104 Alt 29 U/L N 7-52 Ast 26 U/L N 13-39 Egfr Non- 35.1 >60 Egfr 45.2 >60 5 Potassium 5.2 mmol/L High 3.5-5.0 Anion Gap 4 mmol/L N 2-11 Lipid Profile 08/24/2017 [facility] Triglycerides 119 mg/dL 6 (Trig/Chol/HDL) [address] [place] [address] [phone] Cholesterol 163 mg/dL 7 HDL Cholesterol 60.6 mg/dL 8 LDL Cholesterol 79 mg/dL 9 Liver Function 08/24/2017 [facility] Direct 0.10 mg/dL N 0.03- 0.[address] [place] [address] [phone] Indirect Bilirubin 0.3 mg/dL N 0.3-1.0 Laboratory test 08/24/2017 [facility] Uric Acid 5.6 mg/dL N 2.3-6.[address] [place] [address] [phone] Phosphorus 2.9 mg/dL N 2.5-5.0 Magnesium 2.3 mg/dL N 1.9-2.7 Iron & Iron Binding 08/24/2017 [facility] Iron 94 g/dL N 50- [address] [place] [address] [phone] Unsaturated Iron Binding 250 g/dL Total Iron Binding Capacity 344 g/dL N 250-450 Transferrin 246 mg/dL N 203-362 % Iron Saturation 27 % N 15-55 Laboratory test 08/24/2017 [facility] Ferritin 70.0 ng/mL N 11 -[address] [place] [address] [phone] Pthi 08/24/2017 [facility] Calcium (PTH 8.9 mg/dL N 8.6-10.3 Intact) [place] [address] [phone] PTH Intact 36.5 pmol/L High 1.3-9.3 Laboratory test 08/24/2017 [facility] Erythropoietin 12.3 mIU/ mL 2.6 - [address] [place] [address] [phone] Vitamin D, 1,25 Dihydroxy 79 pg/mL Abnormal 18-78 11 Basic Metabolic Panel 07/02/2017 [facility] Sodium 139 mmol/L N 133-145 [address] [place] [address] [phone] Potassium 4.7 mmol/L N 3.5-5.0 Chloride 102 mmol/L N 101-111 Co2 Carbon Dioxide 32 mmol/L N 22-32 Anion Gap 5 mmol/L N 2-11 Glucose 66 mg/dL Low 70-100 Blood Urea Nitrogen 38 mg/dL High 6-24 Creatinine 1.75 mg/dL High 0.51-0.95 BUN/Creatinine Ratio 21.7 High 8-20 Calcium 9.0 mg/dL N 8.6-10.3 Egfr Non- 28.7 >60 Egfr 37.0 >60 12 Laboratory test 04/03/2017 [facility] B-Type 565 pg/mL High [address] [place] [address] Peptide BNP [phone] TSH (Thyroid Stim Horm) 2.15 mcIU/mL N 0.34-5.60 Laboratory 02/20/2017 [facility] Erythropoietin 18.8 Abnormal 2.6 - 14 test finding [address] mIU/mL 18.5 [place], [place] [id number] [phone] Vitamin D Total 25(Oh) 36.9 ng/mL N 20-50 CBC Auto Diff 02/20/2017 [facility] White Blood 6.3 10^3/uL N 3.5-10.[address] [place] [address] [phone] Red Blood Count 3.69 10^6/uL Low 4.0-5.4 Hemoglobin 11.3 g/dL Low 12.0-16.0 Hematocrit 35 % N 35-47 Mean Corpuscular Volume 94 fL N 80-97 Mean Corpuscular Hemoglobin 31 pg N 27-31 Mean Corpuscular HGB Conc 33 g/dL N 31-36 Red Cell Distribution Width 14 % N 10.5-15 Platelet Count 220 10^3/uL N 150-450 Mean Platelet Volume 9 um3 N 7.4-10.4 Abs Neutrophils 4.5 10^3/uL N 1.5-7.7 Abs Lymphocytes 1.1 10^3/uL N 1.0-4.8 Abs Monocytes 0.5 10^3/uL N 0-0.8 Abs Eosinophils 0.2 10^3/uL N 0-0.6 Abs Basophils 0.1 10^3/uL N 0-0.2 Abs Nucleated RBC 0 10^3/uL N Granulocyte % 71.3 % N 38-83 Lymphocyte % 17.3 % Low 25-47 Monocyte % 8.1 % N 1-9 Eosinophil % 2.4 % N 0-6 Basophil % 0.9 % N 0-2 Nucleated Red Blood Cells % 0.1 N Basic Metabolic Panel 02/20/2017 [facility] Sodium 137 mmol/L N 133-[address] [place] [address] [phone] Potassium 4.8 mmol/L N 3.5-5.0 Chloride 108 mmol/L N 101-111 Co2 Carbon Dioxide 21 mmol/L Low 22-32 Anion Gap 8 mmol/L N 2-11 Glucose 79 mg/dL N 70-100 Blood Urea Nitrogen 22 mg/dL N 6-24 Creatinine 1.43 mg/dL High 0.51-0.95 BUN/Creatinine Ratio 15.4 N 8-20 Calcium 8.3 mg/dL Low 8.6-10.3 Egfr Non- 36.4 N >60 Egfr 46.8 N >60 15 Laboratory test 02/20/2017 [facility] Magnesium 1.9 mg/dL N 1.9-2.[address] [place] [phone] 1 Because ethnic data is not always readily [...] 15-29 5 Kidney failure <15 (or dialysis) 2 Because ethnic data is not always readily [...] 15-29 5 Kidney failure <15 (or dialysis) 3 Because ethnic data is not always readily [...] 15-29 5 Kidney failure <15 (or dialysis) 4 Because ethnic data is not always [...] 15-29 5 Kidney failure <15 (or dialysis) 5 Because ethnic data is not always readily [...] 15-29 5 Kidney failure <15 (or dialysis) 6 Desirable: <150 Borderline High: 150-199 High: 200-499 Very High: >500 7 Desirable: <200 Borderline High: 200-239 High: >239 8 Low: <40 Desirable: 40-60 High: >60 9 Desirable: <100 Near Optimal: 100-129 Borderline High: 130-159 High: 160-189 Very High: >189 10 Test Performed by: [facility] - [address] [address] 11 ADDITIONAL INFORMATION This test was developed and its performance characteristics determined by [facility] in a manner consistent with CLIA requirements. This test has not been cleared or approved by the U.S. Food and Drug Administration. Test Performed by: [facility] - [address] [address] 12 Because ethnic data is not always readily [...] 15-29 5 Kidney failure <15 (or dialysis) 13 >100 to <200 pg/mL: likely compensated congestive heart failure (CHF) 200 to 400 pg/mL: likely moderate CHF >400 pg/mL: likely moderate to severe CHF 14 Test Performed by: [facility] - [address] [address] 15 Because ethnic data is not always readily [...] (or dialysis) Procedures Date Code Description Status 08/03/2017 66313 Admin Of Inj Completed 06/30/2017 [id number] Mammogram Completed 06/04/2017 [id number] Bone Mineral Density Test Completed 05/19/2017 97817 EKG Tracing & Interpretation Completed 03/06/2017 51644 ECHO Transthoracic, Real-Time 2D With Doppler And Completed Color Flow 03/06/2017 43471 ECHO Transthoracic, Real-Time 2D With Doppler And Completed Color Flow 06/08/2016 [id number] Colonoscopy Completed 11/12/2015 [id number] Colonoscopy Completed Encounters Type Date Location Provider Dx Diagnosis Office Visit 06/10/2018 [facility] Tanisha Crow, Z01.818 Encounter for other 10:10a Medicine - M.D. preprocedural [place] examination H02.9 Unspecified disorder of eyelid I50.32 Chronic diastolic (congestive) heart failure N18.9 Chronic kidney disease, unspecified Z98.84 Bariatric surgery status I10 Essential (primary) hypertension D64.9 Anemia, unspecified K21.9 Gastro-esophageal reflux disease without esophagitis F32.9 Major depressive disorder, single episode, unspecified N39.46 Mixed incontinence M47.897 Other spondylosis, lumbosacral region F51.04 Psychophysiologic insomnia Z11.59 Encounter for screening for other viral diseases Office Visit 05/13/2018 1:40p [facility] Blas SDanny I50.32 Chronic diastolic Of [employer] In[employer] Fly DO (congestive) heart FACC failure N18.9 Chronic kidney disease, unspecified Z98.84 Bariatric surgery status I10 Essential (primary) hypertension D64.9 Anemia, unspecified Z86.718 Personal history of other venous thrombosis and embolism Office Visit 05/05/2018 [facility] Internal Tanisha K21.9 Gastro-esophageal 10:50a Juan Maria M.D. reflux disease without [place] esophagitis T88.7xxA Unsp adverse effect of drug or medicament, init encntr R25.2 Cramp and spasm Office Visit 04/07/2018 [facility] Internal Tanisha K21.9 Gastro-esophageal 10:50a Juan Maria M.D. reflux disease without [place] esophagitis Z98.84 Bariatric surgery status R26.9 Unspecified abnormalities of gait and mobility Office Visit 12/30/2017 12:10p [facility] Tanisha F32.9 Major depressive Juan Maria M.D. disorder, single [place] episode, unspecified M62.00 Separation of muscle (nontraumatic), unspecified site N39.46 Mixed incontinence M47.897 Other spondylosis, lumbosacral region E87.5 Hyperkalemia Office Visit 12/15/2017 2:45p Surgical Cele Gigi N64.59 Other signs [facility] Kitchen MD symptoms in breast Office Visit 12/04/2017 9:45a Surgical Moises Rouse, M62.00 [facility] LUCIO, CYNDEE muscle (nontraumatic), unspecified site Office Visit 11/30/2017 10:10a [facility] Tanisha F32.9 Major depressive Juan Maria M.D. disorder, single [place] episode, unspecified K43.9 Ventral hernia without obstruction or gangrene Office Visit 09/29/2017 9:00a Surgical Cele Gigi N64.59 Other signs and [facility] Kitchen MD symptoms in breast Office Visit 09/25/2017 10:40a [facility] Dilan Coughlin NP R22.2 Localized Medicine - swelling, mass [place] and lump, trunk R21 Rash and other nonspecific skin eruption R10.9 Unspecified abdominal pain Office Visit 08/27/2017 10:50a [facility] Tanisha F33.1 Major depressive Juan Maria M.D. disorder, [place] recurrent, moderate K21.9 Gastro-esophageal reflux disease without esophagitis Office Visit 08/13/2017 9:50a [facility] Tanisha F33.1 Major depressive Juan Maria M.D. disorder, [place] recurrent, moderate Office Visit 07/02/2017 10:30a [facility] Tanisha M81.0 Age-related Juan Maria M.D. osteoporosis w/o [place] current pathological fracture N39.46 Mixed incontinence N18.3 Chronic kidney disease, stage 3 (moderate) Z23 Encounter for immunization Office Visit 05/21/2017 [facility] Tanisha M47.814 Spondylosis w/o 9:50a Juan Maria M.D. myelopathy or [place] radiculopathy, thoracic region F51.04 Psychophysiologic insomnia Z12.39 Encounter for oth screening for malignant neoplasm of breast Office Visit 05/19/2017 10:40a [facility] Blas S. I50.32 Chronic diastolic Of [facility] Bill, DO (congestive) heart FACC failure N18.3 Chronic kidney disease, stage 3 (moderate) D64.9 Anemia, unspecified I12.9 Hypertensive chronic kidney disease w stg 1-4/unsp chr kdny Z98.84 Bariatric surgery status Z86.718 Personal history of other venous thrombosis and embolism Office Visit 04/29/2017 9:50a [facility] Tanisha N18.3 Chronic kidney Juan Maria M.D. disease, stage 3 [place] (moderate) I50.32 Chronic diastolic (congestive) heart failure M81.0 Age-related osteoporosis w/o current pathological fracture M47.814 Spondylosis w/o myelopathy or radiculopathy, thoracic region E83.42 Hypomagnesemia F51.04 Psychophysiologic insomnia Office Visit 02/19/2017 [facility] Tanisha M47.816 Spondylosis w/o 11:50a Juan Maria M.D. 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 at [facility] Iyhidhbos69/14/2019 - Tanisha Maria M.D.L84 Corns and callositiesReferral:Rene Devries DPM, Surgery, Foot/KgvzjjmduyZ85.31 Encounter for screening mammogram for malignant neoplasm ofNew Xrays:[facility] Screening Mammogram, Ordered: 08/19/18R53.83 Other cyxfbabX29.2 Mixed otaoerhrkwcmlxN28.9 Major depressive disorder, single episode, unspecifiedComments:Discussed you should resume taking 100 mg of sertraline to help you improve your moodFollow up:4 wksG47.33 Obstructive sleep apnea (adult) (pediatric)Comments:tiredness and daytime sleepiness warrant evaluation for sleep apnea I am referring you to sleep clinic again .Referral:[facility] , Sleep Disord,Diag/Clinic
--- NOTE | 2018-09-12 17:46 | UC ---
Abdominal Pain Female HPI - HPI Summary HPI Summary: Patient is a 73 year old female, who present today to the urgent care with abdominal pain . she reports that she has a history of gastric bypass in 2011 and has been having abdominal pain, points to the epigastric area for a few months which has gotten slightly worse now for past 2 days. She does have some nausea and one episode of emesis in the morning without any blood. Last bowel movement was in the afternoon today. She is afraid to eat or drink because of the nausea. She has not taken her nexium for past 2 to 3 days due to nausea. She takes Nexium for heartburn. Her pain is located more in the thoracic and lumbar back and she has history of osteoarthritis for which she is scheduled to get an epidural injection with Dr. Pardo the upcoming Thursday. She gets lumbar facet injection and last was in 03/2018. She takes tramadol for back pain. she denies any radicular symptoms and pain is localized. She denies any fevers or chills, cough chest pain or shortness of breath . No diaphoresis. Denies any diarrhea or constipation. she has an appointment with GI set up later this month as well for further evaluation of this. She denies any urinary symptoms or any vaginal discharge. No trauma or fall reported - History of Current Complaint Chief Complaint: UCAbdominalPain Stated Complaint: NAUSEA, AND VOMITING Time Seen by Provider: 09/12/18 17:40 Hx Obtained From: Patient Pain Intensity: 10 Allergies/Adverse Reactions: Allergies Allergy/AdvReac Type Severity Reaction Status Date / Time adalimumab [From Humira] Allergy Rash Verified 09/12/18 17:08 codeine Allergy Unknown Verified 09/12/18 17:08 Reaction Details pregabalin [From Lyrica] Allergy Rash Verified 09/12/18 17:08 STRESS TEST DYE Allergy SOB , Uncoded 09/12/18 17:08 HIVES ALL OVER BODY & HOT FEELING ALL OVER BODY Home Medications: Home Medications Acetaminophen [Tylenol Extra Strength] 1,000 mg PO PRN 09/12/18 [History] Calcium Citrate/Vitamin D3 [Calcium Citrate - Vit D3 Tab] 1 each PO DAILY [History Confirmed 09/12/18] Iron 65 mg PO DAILY 09/12/18 [History Confirmed 09/12/18] Melatonin [Ra Melatonin] 10 mg PO DAILY 09/12/18 [History Confirmed 09/12/18] PMH/Surg Hx/FS Hx/Imm Hx - Additional Past Medical History Additional PMH: history of gastric bypass Hypertension Hyperlipidemia Osteoarthritis Scoliosis depression Previously Healthy: Yes - Surgical History Surgical History: Yes Surgery Procedure, Year, and Place: CHOLECYSTECTOMY. Lt ANKLE - I & D - DUE TO NON HEALING WOUND. TONSILECTOMY. CATARACTS. GASTRIC BYPASS - 2011 - Family History Known Family History: Positive: Cardiac Disease, Diabetes - Social History Alcohol Use: None Substance Use Type: None Substance Use Comment - Amount & Last Used: fentanyl patch and tramadol rx'd for chronic back pain Smoking Status (MU): Never Smoked Tobacco Have You Smoked in the Last Year: No Review of Systems All Other Systems Reviewed And Are Negative: Yes Constitutional: Positive: Negative Skin: Positive: Negative Eyes: Positive: Negative ENT: Positive: Negative Respiratory: Positive: Negative Cardiovascular: Positive: Negative Gastrointestinal: Positive: Abdominal Pain - epigastric, Vomiting - 1 episode today, Nausea, Other - no constipation. Negative: Diarrhea Genitourinary: Positive: Negative. Negative: Hematuria, Frequency, Urgency Motor: Positive: Negative Neurovascular: Positive: Negative Musculoskeletal: Positive: Arthralgia - lower back, Decreased ROM - lumbar spine Neurological: Positive: Negative Psychological: Positive: Negative Is Patient Immunocompromised?: No Physical Exam - Summary Physical Exam Summary: Physical Exam: Const: Appears well. No signs of apparent distress present. Alert and oriented x 3. Musculo: Walks with a normal gait. Head/Face: Atraumatic, normocephalic on inspection. Eyes: EOMI and PERRLA in both eyes. Conjunctivae clear. No discharge noted ENT: Hearing normal Respiratory: Respirations are unlabored. Lungs clear to auscultation bilaterally, no wheezing , rhonchi or rales noted . CVS: Regular rate and Rhythm, S1S2 normal , no murmurs identified. Extremities: Peripheral circulation is grossly normal. Pulses 2+ Abdomen : Soft,, nondistended , Bowel sounds present . there is tenderness to palpation in the epigastric area. No guarding , rebound tenderness or rigidity noted. Skin: No lesions or rash located on the upper extremities or on the lower extremities. Neuro: Cranial nerves II to XII intact, motor and sensory intact. DTR Intact bilaterally. Mood is normal. Affect is normal. Lumbar spine: slight tenderness to palpation in midline and paraspinal muscle area the lumbar region. Limited and painful range of motion. Triage Information Reviewed: Yes Vital Signs: Initial Vital Signs Temp 98.9 F 09/12/18 17:00 Pulse 92 09/12/18 17:00 Resp 16 09/12/18 17:00 BP 135/87 09/12/18 17:00 Pulse Ox 97 09/12/18 17:00 Vital Signs Reviewed: Yes Abd Pain Female Course/Dx - Course Course Of Treatment: During the visit today, we discussed the findings . she has not taken her Nexium for past 2-3 days because of nausea Suspect gastritis and back pain . She was given 1 dose of Zofran with improvement in her symptoms. She was also given 1 dose of Maalox. she tolerated her fluids well by mouth. Plan to discharge her home with Zofran , Advise her to start taking her Nexium, and she will follow-up with her primary care doctor within 2 days Patient expressed understanding . - Differential Dx/Diagnosis Provider Diagnosis: Gastritis, Low back pain, Dorsalgia of lumbosacral region Discharge - Sign-Out/Discharge Documenting (check all that apply): Patient Departure All imaging exams completed and their final reports reviewed: No Studies - Discharge Plan Condition: Stable Disposition: HOME Prescriptions: Ondansetron ODT TAB* [Zofran 4 MG Odt TAB*] 4 mg PO Q8H PRN 10 Days #30 tab.odt MDD 3 PRN Reason: Nausea Patient Education Materials: Gastritis (ED), Chronic Back Pain (DC) Referrals: Tanisha Maria MD [Primary Care Provider] - 2 Days Additional Instructions: Please start taking the medication as prescribed to the pharmacy . Start taking Nexium as that will help with your gastritis. Follow-up with Dr. Pardo is a scheduled and your GI doctor as scheduled. Follow up with your primary care doctor in 2 days. Patients blood pressure slightly high in Urgent care today , plan follow up with PCP for better control within one month Return to Urgent care / ER if symptoms get worse. - Billing Disposition and Condition Condition: STABLE Disposition: Home
[2018-09-12] MEDS ORDERED: Ondansetron ODT TAB* 4 MG PO ONE ×2 (17:57→20:01)
[2018-09-12] MEDS ORDERED: Al Hydrox/Mg Hydrox/Simet LIQ* 30 ML UDC PO ONE (17:58)
[2018-09-12] MEDS ORDERED: NS 0.9% 1000 ML** 1,000 ML IV ONE (17:59)
[2018-09-12 20:00] VITALS: BP 125/67
== END 2018-09-12 20:31 | disposition home or self-care (01) ==
LOC: UCEAST 16:49
DX: K29.70 Gastritis, unspecified, without bleeding (principal); M54.5 Low back pain; M54.89 Other dorsalgia; Z98.84 Bariatric surgery status; Z88.8 Allergy status to other drugs, medicaments and biological substances; Z88.5 Allergy status to narcotic agent; Z91.041 Radiographic dye allergy status
CPT/HCPCS: 99213; A9270-GY; G0463

== ENCOUNTER 2018-09-22 00:59 | Emergency (ER) | payer MEDICARE, MEDICAID ==
[2018-09-22] MEDS ORDERED: NS 0.9% 1000 ML** 1,000 ML IV ONE ×2 (01:23→04:46)
[2018-09-22] MEDS ORDERED: Ondansetron INJ* 2 MG/ML VIAL IV ONE ×2 (01:25→03:55)
[2018-09-22] MEDS ORDERED: Morphine INJ* 2 MG/ML 1 ML SYRINGE (TWO MG - NEW SYRINGE VERSION) IV ONE (01:25)
--- NOTE | 2018-09-22 01:28 | ED ---
Abdominal Pain/Female - HPI Summary HPI Summary: This patient is a 73 year old F brought in by ambulance to [facility] with a chief complaint of abdominal pain since 09/16/18. The patient rates the pain 9/10 in severity. Patient reports nausea, vomiting (secondary to abdominal pain, last vomited [employer]), and an unusually distended abdomen. Patient denies diarrhea. Her last BM was 5 days ago. Pt does not usually have constipation and does not usually use oxygen at home. She had a gastric bypass about 8 years ago. Patient had a cholecystectomy; they thought she had liver cancer. She has never had a blockage in her intestines before. She lives alone. Pt saw Dr. Pardo for scoliosis 09/17/18. - History of Current Complaint Chief Complaint: EDAbdPain Stated Complaint: EPIGASTRIC PAIN PER EMS Time Seen by Provider: 09/22/18 01:03 Hx Obtained From: Patient Onset/Duration: Lasting Days, Still Present Timing: Constant Severity Initially: Severe Severity Currently: Severe Pain Intensity: 9 Pain Scale Used: 0-10 Numeric Alleviating Factor(s): Nothing Associated Signs and Symptoms: Positive: Nausea, Vomiting - secondary to abdominal pain, last vomited [employer], Other: - Unusually distended abdomen. Negative: Diarrhea Allergies/Adverse Reactions: Allergies Allergy/AdvReac Type Severity Reaction Status Date / Time adalimumab [From Humira] Allergy Rash Verified 09/17/18 11:28 codeine Allergy Unknown Verified 09/17/18 11:28 Reaction Details pregabalin [From Lyrica] Allergy Rash Verified 09/17/18 11:28 STRESS TEST DYE Allergy SOB , Uncoded 09/17/18 11:28 HIVES ALL OVER BODY & HOT FEELING ALL OVER BODY PMH/Surg Hx/FS Hx/Imm Hx Endocrine/Hematology History: Denies: Hx Diabetes Cardiovascular History: Reports: Hx Hypertension Denies: Hx Pacemaker/ICD History: Reports: Hx Renal Disease - KIDNEY FAILURE - MILD Sensory History: Denies: Hx Legally Blind, Hx Deafness, Hx Hearing Aid Opthamlomology History: Denies: Hx Legally Blind Neurological History: Reports: Other Neuro Impairments/Disorders - PAIN CLINIC PT Psychiatric History: Denies: Hx Panic Disorder - Surgical History Surgery Procedure, Year, and Place: CHOLECYSTECTOMY. Lt ANKLE - I & D - DUE TO NON HEALING WOUND. TONSILECTOMY. CATARACTS. GASTRIC BYPASS - 2011 Infectious Disease History: No Infectious Disease History: Denies: Traveled Outside the [place] in Last 30 Days - Family History Known Family History: Positive: Cardiac Disease, Diabetes - Social History Alcohol Use: None Substance Use Type: Reports: None Substance Use Comment - Amount & Last Used: fentanyl patch and tramadol rx'd for chronic back pain Smoking Status (MU): Never Smoked Tobacco Have You Smoked in the Last Year: No Review of Systems Negative: Fever Gastrointestinal: Other - unusually distended abdomen Positive: Abdominal Pain, Vomiting - secondary to abdominal pain, last vomited [employer], Nausea. Negative: Diarrhea All Other Systems Reviewed And Are Negative: Yes Physical Exam - Summary Physical Exam Summary: VITAL SIGNS: Reviewed. GENERAL: Patient is a well-developed and nourished FEMALE who is lying comfortable in the stretcher. Patient is not in any acute respiratory distress. HEAD AND FACE: No signs of trauma. No ecchymosis, hematomas or skull depressions. No sinus tenderness. EYES: PERRLA, EOMI x 2, No injected conjunctiva, no nystagmus. EARS: Hearing grossly intact. Ear canals and tympanic membranes are within normal limits. MOUTH: Oropharynx within normal limits. NECK: Supple, trachea is midline, no adenopathy, no JVD, no carotid bruit, no c- spine tenderness, neck with full ROM. CHEST: Symmetric, no tenderness at palpation LUNGS: Clear to auscultation bilaterally. No wheezing or crackles. CVS: Regular rate and rhythm, S1 and S2 present, no murmurs or gallops appreciated. ABDOMEN: Mild diffuse abd tenderness. Abd distension, hyperactive bowel sounds. No rebound, no guarding, and no masses palpated. EXTREMITIES: FROM in all major joints, no edema, no cyanosis or clubbing. NEURO: Alert and oriented x 3. No acute neurological deficits. Speech is normal and follows commands. SKIN: Dry and warm Triage Information Reviewed: Yes Vital Signs On Initial Exam: Initial Vitals Temp Pulse Resp BP Pulse Ox 99.3 F 92 18 120/77 85 09/22/18 01:06 09/22/18 01:06 09/22/18 01:06 09/22/18 01:06 09/22/18 01:06 Vital Signs Reviewed: Yes Diagnostics - Vital Signs Vital Signs Temp Pulse Resp BP Pulse Ox 09/22/18 01:06 99.3 F 92 18 120/77 85 - Laboratory Result Diagrams: 09/22/18 01:43 09/22/18 01:43 Lab Statement: Any lab studies that have been ordered have been reviewed, and results considered in the medical decision making process. - CT Abdomen/Pelvis CT CT Interpretation Completed By: Radiologist Summary of CT Findings: 04:40. 1. Coronary artery calcifications. 2. Status post gastric surgery. 3. Cholecystectomy. 4. Colonic diverticulosis. 5. Old granulomatous disease. 6. Multiple bilateral renal lesions, probably cysts. 7. Bilateral adrenal adenomas. 8. Atrophic pancreas. ED Physician has reviewed this imaging report. Abdominal Pain Fem Course/Dx - Course Course Of Treatment: This patient is a 73 year old F brought in by ambulance to [facility] with a chief complaint of abdominal pain since 09/16/18. Abdomen/Pelvis CT showed: 1. Coronary artery calcifications. 2. Status post gastric surgery. 3. Cholecystectomy. 4. Colonic diverticulosis. 5. Old granulomatous disease. 6. Multiple bilateral renal lesions, probably cysts. 7. Bilateral adrenal adenomas. 8. Atrophic pancreas. Patient will be d/c with dx of colicky pain. - Diagnoses Provider Diagnoses: Colicky pain Discharge - Sign-Out/Discharge Documenting (check all that apply): Patient Departure - D/C home Patient Received Moderate/Deep Sedation with Procedure: No - Discharge Plan Condition: Stable Disposition: HOME Patient Education Materials: Abdominal Pain (ED) Referrals: Tanisha Maria MD [Primary Care Provider] - 3 Days Additional Instructions: Follow up with your PCP within 3 days. PLEASE RETURN TO THE ED IMMEDIATELY FOR WORSENING OR CONCERNING SYMPTOMS. - Attestation Statements Document Initiated by Scribe: Yes Documenting Scribe: Zbigniew Garcia Provider For Whom Scribe is Documenting (Include Credential): Alyse Alba MD Scribe Attestation: Zbigniew Bansal, scribed for Alyse Alba MD on 09/22/18 at 0525. Status of Scribe Document: Ready
--- OUTSIDE RECORDS SUMMARY | 2018-09-22 01:43 | XMS REPORT | Continuity of Care Document ---
:1945 External Reference #:[id number] Author Name Roman Waters M.D. Address [address] [place] [address] Care Team Providers Name Role Phone Tanisha Maria MD Care Team Information Lab Head Unavailable Tanisha Maria MD Primary Care Physician Unavailable Payers Date Identification Numbers Payment Provider Subscriber Policy Number: [id number] Medicare [facility] Elsi Mg PayID: [id number] [address] [place] [address] Policy Number: [id number] Medicaid [place] Elsi Mg PayID: [id number] [address] [place] [address] Advance Directives Description No Information Available Problems Description No Information Family History Description No Information Available Social History Type Date Description Comments Sex Unknown ETOH Use Denies alcohol use Tobacco Use Start: Unknown Patient has never smoked Smoking Status Reviewed: 09/13/18 Patient has never smoked Allergies, Adverse Reactions, Alerts Date Description Reaction Status Severity Comments 03/10/2018 Lyrica Active 03/10/2018 Humira Active 03/10/2018 Contrast Dye Active Medications Medication Date Status Form Strength Qnty SIG Indications Ordering Provider Fentanyl Active Patches 25mcg/HR Unknown /0000 72HR Zolpidem Active Tablets 10mg Crow, Tartrate / Tanisha LUCIO Sertraline HCL Active Tablets 100mg Crow, /0000 Tanisha LUCIO Carvedilol Active Tablets 25mg Crow, / Tanisha LUCIO Gabapentin Active Capsules 300mg take 1 Unknown /0000 capsule by mouth four times a day Furosemide 00 Active Tablets 40mg Unknown /0000 Tolterodine Active Tablets 1mg Crow, Tartrate / Tanisha LUCIO Pravastatin Active Tablets 40mg take 1 tablet Unknown Sodium /0000 by mouth once daily Ibu Active Tablets 800mg take 1 tablet Unknown /0000 by mouth every 8 hours if needed for pain Esomeprazole Active Capsules DR 40mg Crow, Magnesium Tanisha LUCIO Citalopram Active Tablets 20mg take 1 tablet Unknown Hydrobromide 0000 by mouth daily for 10 days then 1 tablet every othe... (Refer To Prescription Notes). Shingrix Hx Suspension 50mcg Unknown Rec - 06/09 Metaxalone Hx Tablets 800mg Unknown / - 06/09 Famotidine Hx Tablets 40mg Crow, / Tanisha Boykin MD 06/09 Potassium Hx Tablets ER 10Meq Crow, Chloride Celsa Tanisha Boykin MD 06/09 Triamcinolone Hx Cream 0.1% apply Thin Unknown Acetonide Film to - affected area 06/09 twice a day /2019 Immunizations Description No Information Available Vital Signs Date Vital Result Comment 03/10/2018 10:51am Intraocular Pressure Right Eye 16 mmHg Intraocular Pressure Left Eye 16 mmHg Results Description No Information Available Procedures Date Code Description Status 09/13/2018 02292 Remove Secondary Cataract, Laser (Yag) Completed 06/09/2018 92166 Remove Secondary Cataract, Laser (Yag) Completed 03/10/2018 77144 Eye Exam New Intermediate Completed Encounters Description No Information Available Plan of Treatment 09/13/2018 - Roman Waters M.D.H26.491 Other secondary cataract, right eyeFollow up:1-[address] Guzman
[2018-09-22 01:52] LABS: ABS Basophils 0.1 10^3/ul (0-0.2); ABS Eosinophils 0.1 10^3/ul (0-0.6); ABS Lymphocytes 1.3 10^3/ul (1.0-4.8); ABS Monocytes 0.7 10^3/ul (0-0.8); ABS Neutrophils 5.2 10^3/ul (1.5-7.7); ABS Nucleated RBC 0 10^3/ul; Eosinophil % 1.6 %; Hematocrit 35 % (33-41); Hemoglobin 11.4 g/dL (12.0-16.0); Lymphocyte % 18.2 %; Mean Corpuscular HGB Conc 33 g/dL (31-36); Mean Corpuscular Hemoglobin 33 pg (27-31); Mean Corpuscular Volume 101 fL (80-97); Mean Platelet Volume 8.6 fL (7.4-10.4); Nucleated Red Blood Cells % 0; Platelet Count 178 10^3/uL (150-450); Red Blood Count 3.49 10^6 /uL (3.70-4.87); Red Cell Distribution Width 14 % (10.5-15); White Blood Count 7.4 10^3/uL (3.5-10.8)
[2018-09-22 02:08] LABS: Albumin 3.4 g/dL (3.2-5.2); Albumin/Globulin Ratio 1.4 (1-3); BUN/Creatinine Ratio 23.9 (8-20); C Reactive Protein 1.82 mg/L (<8.01); Calcium 9.1 mg/dL (8.6-10.3); EGFR African American 28.2 (>60); EGFR Non-African American 23.3 (>60); Globulin 2.5 g/dL (2-4); Magnesium 2.2 mg/dL (1.9-2.7); Potassium 4.2 mmol/L (3.5-5.0); Total Bilirubin 0.3 mg/dL (0.2-1.0); Total Protein 5.9 g/dL (6.4-8.9)
[2018-09-22 02:09] LABS: Activated Partial Thrombo Time 31.1 seconds (26.0-36.3); INR 0.94 (0.77-1.02)
[2018-09-22] MEDS ORDERED: fentaNYL* 50 MCG/ML 2 ML VIAL (100 MCG VIAL) IV SLOW PU ONE (03:17)
[2018-09-22] MEDS ORDERED: fentaNYL* 50 MCG/ML 2 ML VIAL (100 MCG VIAL) ONE (03:20)
[2018-09-22] MEDS ORDERED: Ondansetron INJ* 2 MG/ML VIAL ONE (03:56)
[2018-09-22 05:17] LABS: Urine Appearance Cloudy; Urine Bacteria Absent (Absent); Urine Bilirubin Negative (Negative); Urine Blood Negative (Negative); Urine Color Yellow; Urine Glucose Negative (Negative); Urine Ketones Negative (Negative); Urine Nitrite Positive (Negative); Urine Protein Negative (Negative); Urine Red Blood Cell Absent (Absent); Urine Specific Gravity 1.009 (1.010-1.030); Urine Urobilinogen Negative (Negative); Urine White Blood Cell Trace(0-5/hpf) (Absent)
[2018-09-22 05:47] VITALS: BP 144/86
--- NOTE | 2018-09-24 05:53 | PN ---
Progress Note - Progress Note Date of Service: 09/24/18 Note: patient preliminary urine culture grew Klebisella pneumonia >100,000. patient was not place on antibiotics. will wait for final sensitivity to decide which antibiotic would be sensitive to.
--- NOTE | 2018-09-24 10:53 | PN ---
Progress Note - Progress Note Date of Service: 09/24/18 Note: Patient's urine culture came back positive for ESBL klebsiella pneumonia. We' ll prescribe Cipro 500 mg twice a day for 5 days. Called and spoke with patient about change.
== END 2018-09-22 05:58 | disposition home or self-care (01) ==
LOC: ED 00:59
DX: R10.84 Generalized abdominal pain (principal); N39.0 Urinary tract infection, site not specified; B96.1 Klebsiella pneumoniae [K. pneumoniae] as the cause of diseases classified elsewhere; M41.9 Scoliosis, unspecified; Z88.5 Allergy status to narcotic agent; I12.9 Hypertensive chronic kidney disease with stage 1 through stage 4 chronic kidney disease, or unspecified chronic kidney disease; N18.9 Chronic kidney disease, unspecified
CPT/HCPCS: 36415; 74176; 80053; 81003; 81015; 82150; 83605; 83690; 83735; 85025; 85610; 85730; 86140; 87077; 87086; 87186; 96361; 96374; 96375; 96376; 99282; J2270; J2405; J3010

== ENCOUNTER 2019-08-14 03:09 | Observation (INO) | payer MEDICARE, MEDICAID ==
--- NOTE | 2019-08-14 03:24 | ED ---
HPI Chest Pain - HPI Summary HPI Summary: 74 year old female presents to the ED with a chief complaint of chest pain starting an hour ago. Patient was at home when she suddenly experienced a severe chest pain across her chest, radiating to her neck. Patient also reports feeling nauseous and SOB. No history of cardiac issues. Stage 3 kidney disease. Patient wears a fentanyl patch for her chronic back pain. Home Medications Medication Instructions Recorded Confirmed Type Carvedilol TAB* [Coreg TAB*] 25 mg PO BID 06/16/17 08/01/19 History Esomeprazole Magnesium [Nexium] 40 mg PO BID 06/16/17 08/01/19 History Magnesium Oxide TAB* [MagOx 400 400 mg PO DAILY 06/16/17 08/01/19 History TAB*] Multivitamins/Minerals TAB* 1 tab PO DAILY 06/16/17 08/01/19 History [Theragran/minerals TAB*] Pravastatin Sodium [Pravachol] 40 mg PO DAILY 06/16/17 08/01/19 History fentaNYL PATCH 25 MCG/HR* 25 mcg TRANSDERM Q72H 06/29/17 08/01/19 History [Duragesic PATCH 25 Mcg/Hr*] Gabapentin CAP(*) [Neurontin 300 300 mg PO QID PRN 08/31/17 08/01/19 History CAP(*)] Sertraline* [Zoloft*] 100 mg PO DAILY 08/31/17 08/01/19 History traMADol TAB* [Ultram*] 50 mg PO TID PRN 03/26/18 08/01/19 History Flaxseed Oil [[place]-3 Flaxseed Oil] 2,000 mg PO BID 07/05/18 08/01/19 History Acetaminophen [Tylenol Extra 1,000 mg PO Q6HR 09/12/18 08/01/19 History Strength] Calcium Citrate/Vitamin D3 1 each PO DAILY 09/12/18 08/01/19 History [Calcium Citrate - Vit D3 Tab] Iron 65 mg PO DAILY 09/12/18 08/01/19 History Melatonin [Ra Melatonin] 10 mg PO DAILY 09/12/18 08/01/19 History Furosemide TAB* [Lasix TAB*] 20 mg PO BID 10/21/18 08/01/19 History Solifenacin Succinate [Vesicare] 5 mg PO DAILY 10/21/18 08/01/19 History - History of Current Complaint Chief Complaint: EDChestPainROMI Time Seen by Provider: 08/14/19 03:16 Hx Obtained From: Patient Onset/Duration: Started Hours Ago, Atraumatic, Still Present Timing: Constant, Lasting Hours Initial Severity: Severe Current Severity: Severe Pain Intensity: 10 Pain Scale Used: 0-10 Numeric Chest Pain Location: Diffuse - diffuse across chest Chest Pain Radiates: Yes Chest Pain Radiates To:: Neck Aggravating Factor(s): Nothing Alleviating Factor(s): Nothing Associated Signs and Symptoms: Positive: Chest Pain, Shortness of Breath, Nausea - Allergy/Home Medications Allergies/Adverse Reactions: Allergies Allergy/AdvReac Type Severity Reaction Status Date / Time adalimumab [From Humira] Allergy Rash Verified 08/01/19 14:01 codeine Allergy Unknown Verified 08/01/19 14:01 Reaction Details pregabalin [From Lyrica] Allergy Rash Verified 08/01/19 14:01 STRESS TEST DYE Allergy SOB , Uncoded 06/30/19 09:19 HIVES ALL OVER BODY & HOT FEELING ALL OVER BODY Home Medications: Home Medications Carvedilol TAB* [Coreg TAB*] 25 mg PO BID 06/16/17 [History Confirmed 08/14/19] Esomeprazole Magnesium [Nexium] 40 mg PO BID 06/16/17 [History Confirmed ] Magnesium Oxide TAB* [MagOx 400 TAB*] 400 mg PO DAILY 06/16/17 [History Confirmed 08/14/19] Multivitamins/Minerals TAB* [Theragran/minerals TAB*] 1 tab PO DAILY 06/16/17 [ History Confirmed 08/14/19] Pravastatin Sodium [Pravachol] 40 mg PO DAILY 06/16/17 [History Confirmed ] fentaNYL PATCH 25 MCG/HR* [Duragesic PATCH 25 Mcg/Hr*] 25 mcg TRANSDERM Q72H [History Confirmed 08/14/19] Gabapentin CAP(*) [Neurontin 300 CAP(*)] 300 mg PO QID PRN 08/31/17 [History Confirmed 08/14/19] Sertraline* [Zoloft*] 100 mg PO DAILY 08/31/17 [History Confirmed 08/14/19] traMADol TAB* [Ultram*] 50 mg PO TID PRN 03/26/18 [History Confirmed 08/14/19] Flaxseed Oil [[place]-3 Flaxseed Oil] 2,000 mg PO BID 07/05/18 [History Confirmed 08/14/19] Acetaminophen [Tylenol Extra Strength] 1,000 mg PO Q6HR 09/12/18 [History Confirmed 08/14/19] Calcium Citrate/Vitamin D3 [Calcium Citrate - Vit D3 Tab] 1 each PO DAILY [History Confirmed 08/14/19] Iron 65 mg PO DAILY 09/12/18 [History Confirmed 08/14/19] Melatonin [Ra Melatonin] 10 mg PO DAILY 09/12/18 [History Confirmed 08/14/19] Furosemide TAB* [Lasix TAB*] 20 mg PO BID 10/21/18 [History Confirmed 08/14/19] Solifenacin Succinate [Vesicare] 5 mg PO DAILY 10/21/18 [History Confirmed 08/13] PMH/Surg Hx/FS Hx/Imm Hx Endocrine/Hematology History: Denies: Hx Diabetes Cardiovascular History: Reports: Hx Hypertension Denies: Hx Pacemaker/ICD Respiratory History: Reports: Hx Sleep Apnea - Uses CPAP with Oxygen History: Reports: Hx Renal Disease - KIDNEY FAILURE - STAGE 4 Sensory History: Denies: Hx Legally Blind, Hx Deafness, Hx Hearing Aid Opthamlomology History: Denies: Hx Legally Blind Neurological History: Reports: Other Neuro Impairments/Disorders - PAIN CLINIC PT Psychiatric History: Denies: Hx Panic Disorder - Surgical History Surgery Procedure, Year, and Place: CHOLECYSTECTOMY. Lt ANKLE - I & D - DUE TO NON HEALING WOUND. TONSILECTOMY. CATARACTS. GASTRIC BYPASS - 2012, tubal - Family History Known Family History: Positive: Cardiac Disease, Diabetes - Social History Alcohol Use: None Substance Use Type: Reports: None Substance Use Comment - Amount & Last Used: fentanyl patch and tramadol rx'd for chronic back pain Smoking Status (MU): Never Smoked Tobacco Have You Smoked in the Last Year: No Review of Systems Negative: Fever Positive: Chest Pain Positive: Shortness Of Breath Positive: Nausea All Other Systems Reviewed And Are Negative: Yes Physical Exam - Summary Physical Exam Summary: Appearance: Well-appearing, Well-nourished, lying in bed comfortably Skin: Warm, dry, no obvious rash Eyes: sclera anicteric, no conjunctival pallor HENT: mucous membranes moist, pharynx appears normal Neck: Supple, nontender Respiratory: Clear to auscultation, no signs of respiratory distress Cardiovascular: Normal S1, S2. No murmurs. Normal distal pulses in tibial and radial bilaterally. Abdomen: Soft, nontender, normal active bowel sounds present Musculoskeletal: Normal, Strength/ROM Intact Neurological: A&Ox3, awake and alert, mentation is normal, speech is fluent and appropriate Psychiatric: affect is normal, does not appear anxious or depressed Triage Information Reviewed: Yes Vital Signs Reviewed: Yes Procedures - Sedation Patient Received Moderate/Deep Sedation with Procedure: No Diagnostics - Laboratory Result Diagrams: 08/14/19 04:39 08/14/19 04:39 Lab Statement: Any lab studies that have been ordered have been reviewed, and results considered in the medical decision making process. - CT CAP CTA CT Interpretation Completed By: Radiologist Summary of CT Findings: CAP CTA IMPRESSION: 1. No aortic dissection. 2. 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 Cholecystectomy. 3. Status post gastric surgery. 4. Colonic diverticulosis. 5. Bilateral renal cysts. 6. Atrophic pancreas. 7. Atrophic uterus. 8. Prominent adrenal glands bilaterally. 9. Low-density left adrenal nodule. An ED physician has reviewed this report. - EKG 0120 Cardiac Rate: NL - 88 bpm EKG Rhythm: Sinus Rhythm ST Segment: Normal Ectopy: None Summary of EKG Findings: NSR at 88 BPM, P waves, QRS complex, and T waves are within normal limits, T waves and intervals are normal, no ischemic changes. This is a normal EKG. An ED physician has reviewed and interpreted this EKG. Re-Evaluation - Re-Evaluation First Eval Re-Evaluation Time: 07:25 Comment: Discussed results and the shirt sorter's recommendations with patient. Patient agrees to be admitted to [facility]. Chest Pain Course/Dx - Course Course Of Treatment: 74 year old female presents to the ED with a chief complaint of chest pain starting an hour ago. Patient was at home when she suddenly experienced a severe chest pain across her chest, radiating to her neck. Patient also reports feeling nauseous and SOB. No history of cardiac issues. Stage 3 kidney disease. Patient wears a fentanyl patch for her chronic back pain. Physical exam normal. CAP CTA IMPRESSION: 1. No aortic dissection. 2. 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 Cholecystectomy. 3. Status post gastric surgery. 4. Colonic diverticulosis. 5. Bilateral renal cysts. 6. Atrophic pancreas. 7. Atrophic uterus. 8. Prominent adrenal glands bilaterally. 9. Low-density left adrenal nodule. EKG normal. Lab results show RBC 3.09, HGB 10.4, HCT 32, MCV 105, MCH 34, Plt count 122, BUN 47, Creatinine 1.76, BUN/Creatinine Ratio 26.7, glucose 104, calcium 8.4, and total protein 5.4. Patient is a sign out to Dr. Reddy at change of shifts at 0700, pending 2nd troponin. - Diagnoses Provider Diagnoses: Chest pain Discharge ED - Sign-Out/Discharge Documenting (check all that apply): Sign-Out Patient Signing out patient TO: Noman Reddy - Signing out to Dr. Noman Reddy at change of shifts at 0700. - Discharge Plan Condition: Fair Disposition: ADMITTED TO [facility] - Billing Disposition and Condition Condition: FAIR Disposition: Admitted to [facility] - Attestation Statements Document Initiated by Solangeibe: Yes Documenting Scribe: Glen Salomon Provider For Whom Jaimee is Documenting (Include Credential): Dr. Kike [facility] Scribe Attestation: IGlen, scribed for Dr. Kike [facility] on 08/15/19 at 0331. Scribe Documentation Reviewed: Yes Provider Attestation: The documentation as recorded by the scribeGlen accurately reflects the service I personally performed and the decisions made by me, Dr. Kike [facility] Status of Scribe Document: Viewed
--- OUTSIDE RECORDS SUMMARY | 2019-08-14 03:38 | XMS REPORT | Continuity of Care Document ---
:1945 External Reference #:[id number] Author Name Gill Nguyễn MD (transmitted by agent of provider Karo Bowling) Address [address], [place] [address] Care Team Providers Name Role Phone Tanisha Maria MD - Internal Care Team Information [facility] Ronny Beckwith MD - Nephrology Care Team Information [facility] [phone] Problems Active Problems Provider Date Hyperlipidemia Tanisha Maria M.D. Onset: 02/19/2017 Chronic kidney disease stage 3 Tanisha Maria M.D. Onset: 02/19/2017 Note: hx of chronic NSAID use ( celebrex) HTN kidney disease , gastric bypass Essential hypertension Tanisha Maria M.D. Onset: 02/19/2017 Degeneration of lumbar intervertebral disc Tanisha Maria M.D. Onset: 2016 Degeneration of thoracic intervertebral disc Tanisha Maria M.D. Onset: Urinary incontinence Tanisha Maria M.D. Onset: 02/19/2017 Depressive disorder Tanisha Maria M.D. Onset: 02/19/2017 Insomnia Tanisha Maria M.D. Onset: 02/19/2017 Scoliosis of lumbar spine Tanisha Maria M.D. Onset: 03/05/2017 Diastolic dysfunction Tanisha Maria M.D. Onset: 03/10/2017 Note: grade 1 Pulmonary hypertension Tanisha Maria M.D. Onset: 03/10/2017 Note: mild to moderate Anemia Tanisha Maria M.D. Onset: 04/08/2017 Note: gastric bypass , CKD Diverticular disease Tanisha Maria M.D. Onset: 05/21/2017 Note: per old record Osteoporosis Tanisha Maria M.D. Onset: 06/09/2017 Note: hip Obstructive sleep apnea syndrome Onset: Ventral incisional hernia of anterior Tanisha Maria M.D. Onset: 11/30/2017 abdominal wall without obstruction AND without gangrene Social History Type Date Description Comments Sex Unknown Tobacco Use Start: Unknown Never Smoked Cigarettes Smoking Status Reviewed: 06/17/19 Never Smoked Cigarettes ETOH Use Denies alcohol use Tobacco Use Start: Unknown Patient has never smoked Recreational Drug Use Denies Drug Use Exercise Type/Frequency Walks daily Allergies, Adverse Reactions, Alerts Active Allergies Reaction Severity Comments Date Lyrica rash 02/19/2017 Contrast Dye Hives, trouble breathing Severe 05/19/2017 Adalimumab Hives, Trouble breathing Severe 05/19/2017 Iodine hives 08/04/2017 Codeine unknown 08/04/2017 Lyrica 05/10/2019 Humira 05/10/2019 Contrast Dye 05/10/2019 Medications Active Medications SIG Qnty Indications Ordering Date Provider Compression X large 1Pair I50.32 Tanisha Maria, 03/31/2019 Stockings M.DDanny Misc Abdominal as needed Dx [id number] 1units Tanisha Maria, 02/22/2019 Binder/Elastic Large M.DDanny [facility] Oxygen Please use 2L at R09.02 Meredith 02/14/2019 [facility] night with cpap LELO Woodall Esomeprazole Take 1 Capsule By 180caps K21.9 Dilan Coughlin NP 04/07/2018 Magnesium Mouth Twice A Day. 40mg Capsules DR Forrest standard adjustable 1units Tanisha Maria, 04/05/2018 [facility] height cane. M.D. Shingrix intramuscular x 1 1units Tanisha Maria, 02/03/2018 50mcg then repeat in 4 M.D. Suspension Rec months Sertraline HCL take 1 tablet by 90tabs F32.9 Tanisha Maria, 11/30/2017 100mg mouth once daily M.D. Tablets Fentanyl 1 patch every 72 Unknown 08/11/2017 25mcg/HR hours Patches 72HR Magnesium Oxide -MG once a day Tanisha Maria, 04/29/2017 Supplement M.D. 400mg Capsules Calcium 500 D3 2 tabs twice a day Tanishateagan Maria, 04/29/2017 otc M.D. 488-596xd-mg-Unit Tablets Cpap Machine Unknown Nighttime Sleep Aid Unknown (Dephenhydramine 50MG/30ML Melatonin 1 tab by mouth at Unknown 10mg bedtime as needed Capsules for insomnia Acetaminophen 2 by mouth twice a Unknown 500mg day prn Tablets Vesicare 1 by mouth every day Unknown 5mg Tablets Tramadol HCL tid prn Unknown 50mg Tablets Pravastatin Sodium take 1 tablet by 90tabs Tanishateagan Maria, mouth once daily M.D. 40mg Tablets Carvedilol Take 1 Tablet By 180tabs Tanisha Maria, 25mg Mouth Twice A Day M.D. Tablets Vitamin B12 once qod Unknown Liquid Flax Seed Oil 2 by mouth every day Unknown 1000mg Capsules Gabapentin now 4 a day---3 Unknown 300mg times a day as Capsules needed Multi Vitamin Daily 1 by mouth every day Unknown Tablets Ferrous Sulfate 1 by mouth once a Unknown day 325(65Fe) mg Tablets DR Furosemide Take 1/2 tab po 90tabs Tanishateagan Maria, 40mg twice daily ( med M.D. Tablets change 6 months ago) Medications Administered in Office Medication SIG Qnty Indications Ordering Provider Date Prolia Injection, Denosumab, 1MG Nurse Visit C 08/03/2017 Injection Immunizations CPT Code Status Date Vaccine Lot # [id number] Given 03/03/2019 Fluzone High Dose 46769 Given 06/25/2018 Zoster (Shingles) Vaccine (HZV), Recombinant, Subunit, Adjuvanted 70553 Given 03/04/2018 Influenza Virus Vaccine, Quadrivalent, Split, Preservative Free 73079 Given 02/24/2018 Zoster (Shingles) Vaccine (HZV), Recombinant, Subunit, Adjuvanted 70155 Given 07/02/2017 Pneumococcal Conjugate Vaccine 13 Valent For [id number] Intramuscular Use 26789 Given 02/19/2017 Influenza Virus Vaccine, Quadrivalent, Split, [id number] Preservative Free 46238 Given 12/21/2015 Tdap - Tetanus/Diptheria/Acellular Pertussis 65598 Given 12/21/2015 Pneumococcal Conjugate Vaccine 13 Valent For Intramuscular Use Vital Signs Date Vital Result Comment 06/17/2019 1:50pm Height 64 inches 5'4" Weight 174.00 lb Heart Rate 91 /min BP Systolic 115 mmHg BP Diastolic 70 mmHg Body Temperature 98.4 F O2 % BldC Oximetry 93 % BMI (Body Mass Index) 29.9 kg/m2 06/03/2019 1:41pm Weight 170.00 lb with shoes Heart Rate 88 /min BP Systolic Sitting 120 mmHg Lue reg cuff BP Diastolic Sitting 70 mmHg Lue reg cuff BP Systolic Standing 124 mmHg Lue reg cuff BP Diastolic Standing 72 mmHg Lue reg cuff Respiratory Rate 16 /min Ejection Fraction 55-60% date 03/06/17 ECHO Results Test Acquired Date Facility Test Result H/L Range Note Order 04/18/2019 [facility] In-House 6 Minute Walk 87% resting Laboratory test 02/17/2019 [facility] Magnesium 2.1 mg/dL Normal 1.9-2.7 finding [address] [place] [address] [phone] Basic Metabolic 02/17/2019 [facility] Sodium 142 mmol/L Normal 135-145 Panel [address] [place] [address] [phone] Potassium 4.2 mmol/L Normal 3.5-5.0 Chloride 104 mmol/L Normal 101-111 Co2 Carbon Dioxide 32 mmol/L Normal 22-32 Anion Gap 6 mmol/L Normal 2-11 Glucose 114 mg/dL High 70-100 Blood Urea Nitrogen 39 mg/dL High 6-24 Creatinine 1.70 mg/dL High 0.51-0.95 BUN/Creatinine Ratio 22.9 High 8-20 Calcium 8.6 mg/dL Normal 8.6-10.3 Egfr Non- 29.6 >60 Egfr 35.9 >60 1 Laboratory test 02/17/2019 [facility] Phosphorus 3.2 mg/dL Normal 2.5-5.0 finding [address] [place] [address] [phone] 1 Because ethnic data is not always [...] (or dialysis) Procedures Date Code Description Status 06/03/2019 14497 EKG Tracing & Interpretation Completed 04/27/2019 63995 [facility] Measurement Heart Rate, Completed Oximetry 04/18/2019 89904 [facility] Measurement Heart Rate, Completed Oximetry 01/19/2019 27947 Polysomnography Sleep Staging 4+ Parameters W/Cpap Completed 10/29/2018 [id number] Colonoscopy Completed 08/24/2018 [id number] Mammogram Completed 06/30/2017 [id number] Mammogram Completed 06/04/2017 [id number] Bone Mineral Density Test Completed 11/12/2015 [id number] Colonoscopy Completed 10/25/2008 [id number] Diabetic Foot Exam Completed Medical Devices Description No Information Available Encounters Type Date Location Provider Dx Diagnosis Office Visit 06/03/2019 [facility] Blas Bill, I50.32 Chronic diastolic 1:40p Of [facility] DO FACC (congestive) heart failure N18.9 Chronic kidney disease, unspecified R60.0 Localized edema Z98.84 Bariatric surgery status I10 Essential (primary) hypertension Z86.718 Personal history of other venous thrombosis and embolism Office Visit 04/04/2019 [facility] G47.33 Obstructive sleep 11:30a [facility] apnea (adult) [facility] (pediatric) G47.00 Insomnia, unspecified R09.02 Hypoxemia Office Visit 02/17/2019 [facility] Internal Tanisha F51.04 Psychophysiologic 1:20p Juan Maria M.D. insomnia Ccmob N18.9 Chronic kidney disease, unspecified L30.9 Dermatitis, unspecified Office Visit 02/14/2019 [facility] G47.33 Obstructive sleep 2:00p [facility] apnea (adult) [facility] (pediatric) G47.00 Insomnia, unspecified R09.02 Hypoxemia Assessments Date Code Description Provider 06/17/2019 G47.33 Obstructive sleep apnea (adult) Gill Nguyễn MD (pediatric) 06/17/2019 R10.9 Unspecified abdominal pain Gill Nguyễn MD 06/17/2019 N18.3 Chronic kidney disease, stage 3 Gill Nguyễn MD (moderate) 06/17/2019 I50.32 Chronic diastolic (congestive) heart Gill Nguyễn MD failure 06/17/2019 M40.204 Unspecified kyphosis, thoracic region Gill Nguyễn MD 06/17/2019 R10.817 Generalized abdominal tenderness Gill Nguyễn MD 06/03/2019 I50.32 Chronic diastolic (congestive) heart Blas Bill, DO [facility] failure 06/03/2019 N18.9 Chronic kidney disease, unspecified Blas Bill, DO [facility] 06/03/2019 R60.0 Localized edema Blas Bill, DO [facility] 06/03/2019 Z98.84 Bariatric surgery status Blas Bill, DO [facility] 06/03/2019 I10 Essential (primary) hypertension Blas Bill, DO [facility] 06/03/2019 Z86.718 Personal history of other venous Blas Bill, DO [facility] thrombosis and embolism 04/27/2019 R09.02 Hypoxemia Nurse Visit A 04/18/2019 R09.02 Hypoxemia Nurse Visit A 04/18/2019 G47.33 Obstructive sleep apnea (adult) Nurse Visit A (pediatric) 04/04/2019 G47.33 Obstructive sleep apnea (adult) Meredith Woodall NP (pediatric) 04/04/2019 G47.00 Insomnia, unspecified Meredith Woodall NP 04/04/2019 R09.02 Hypoxemia Meredith Woodall NP 02/17/2019 F51.04 Psychophysiologic insomnia Tanisha Maria M.D. 02/17/2019 N18.9 Chronic kidney disease, unspecified Tanisha Maria M.D. 02/17/2019 L30.9 Dermatitis, unspecified Tanisha Maria M.D. 02/14/2019 G47.33 Obstructive sleep apnea (adult) Meredith Woodall NP (pediatric) 02/14/2019 G47.00 Insomnia, unspecified Meredith Woodall NP 02/14/2019 R09.02 Hypoxemia Meredith Woodall NP 01/19/2019 G47.33 Obstructive sleep apnea (adult) Tasneem Virk MD (pediatric) Plan of Treatment Future Appointment(s):07/06/2019 1:30 pm - Olamide Key, MENHADEN VESSEL PILOT [facility] - GHAZALA WelshW [facility] 1:00 pm - Meredith Woodall NP at [facility]/17/2019 - Gill Nguyễn MDG47.33 Obstructive sleep apnea (adult) (pediatric)R10.9 Unspecified abdominal painReferral:Kina Yu MD, Surgery,BkzvyptX20.3 Chronic kidney disease, stage 3 (moderate)I50.32 Chronic diastolic (congestive) heart hvtjlygA39.204 Unspecified kyphosis, thoracic nmgdcpX20.817 Generalized abdominal tenderness Functional Status Description No Information Available Mental Status Description No Information Available Referrals Refer to Reason for Referral Status Appt Date Kina Yu MD Created [address] [place], [place] [address] [phone]
--- OUTSIDE RECORDS SUMMARY | 2019-08-14 03:38 | XMS REPORT | Continuity of Care Document ---
:1945 External Reference #:[id number] Author Name Blas Bill DO FAC (transmitted by agent of provider Minal Israel) Address [address] [place] [address] Care Team Providers Name Role Phone Tanisha Maria MD - Internal Care Team Information Plastic Molding Operator [phone] Medicine Ronny Beckwith MD - Nephrology Care Team Information Plastic Molding Operator [phone] Problems Active Problems Provider Date Hyperlipidemia Tanisha [...] Unknown Never Smoked Cigarettes Smoking Status Reviewed: 07/05/19 Never Smoked Cigarettes ETOH Use Denies alcohol use Tobacco Use Start: Unknown Patient has never smoked Recreational Drug Use Denies Drug Use Exercise Type/Frequency Walks daily Patient is in physical therapy 2 mornings a week Allergies, Adverse Reactions, Alerts Active Allergies Reaction [...] [id number] 1units Tanisha Maria, 02/22/2019 [facility] Please use 2L at R09.02 Meredith 02/14/2019 [facility] night with cpap LELO Woodall Esomeprazole Take 1 Capsule By 180caps K21.9 Dilan Coughlin NP 04/07/2018 Magnesium Mouth Twice A Day. 40mg Capsules DR Forrest standard adjustable 1units Tanisha Maria, 04/05/2018 [facility] height cane. M.D. Shingrix intramuscular x 1 [...] 500 D3 2 tabs twice a day Tanisha Maria, 04/29/2017 otc M.D. [id number]-Unit Tablets Cpap Machine Unknown Nighttime Sleep Aid [...] CPT Code Status Date Vaccine Lot # 08130 Given 03/03/2019 Fluzone High Dose 34549 Given 06/25/2018 Zoster (Shingles) Vaccine (HZV), Recombinant, Subunit, Adjuvanted 26532 Given 03/04/2018 Influenza Virus Vaccine, Quadrivalent, Split, Preservative Free 93162 Given 02/24/2018 Zoster (Shingles) Vaccine (HZV), Recombinant, Subunit, Adjuvanted 93295 Given 07/02/2017 Pneumococcal Conjugate Vaccine 13 Valent For [id number] Intramuscular Use 87624 Given 02/19/2017 Influenza Virus Vaccine, Quadrivalent, Split, [id number] Preservative Free 72374 Given 12/21/2015 Tdap - Tetanus/Diptheria/Acellular Pertussis 44348 Given 12/21/2015 Pneumococcal Conjugate Vaccine 13 Valent For Intramuscular Use Vital Signs Date Vital Result Comment 07/05/2019 11:29am Height 65 inches 5'5" Weight 172.00 lb with shoes Heart Rate 84 /min BP Systolic Sitting 130 mmHg lue reg cuff BP Diastolic Sitting 72 mmHg lue reg cuff BP Systolic Standing 124 mmHg lue reg cuff BP Diastolic Standing 72 mmHg lue reg cuff Respiratory Rate 14 /min BMI (Body Mass Index) 28.6 kg/m2 Ejection Fraction 55-60% echo. 03/04/19 06/28/2019 11:16am Height 64 inches 5'4" Weight 174.00 lb Heart Rate 96 /min BP Systolic Sitting 108 mmHg BP Diastolic Sitting 72 mmHg Respiratory Rate 16 /min Body Temperature 98.1 F BMI (Body Mass Index) 29.9 kg/m2 Results Test Acquired Date Facility Test Result H/L Range Note Order 04/18/2019 [facility] In-House 6 Minute Walk 87% resting Laboratory test 02/17/2019 [facility] Magnesium 2.1 mg/dL Normal 1.9-2.7 finding [address] [place] [address] [phone] Basic Metabolic 02/17/2019 [facility] Sodium 142 mmol/L Normal 135-145 Panel [address] [place] [address] [phone] Potassium 4.2 mmol/L Normal 3.5-5.0 Chloride 104 mmol/L Normal 101-111 Co2 Carbon Dioxide 32 mmol/L Normal 22-32 Anion Gap 6 mmol/L Normal 2-11 Glucose 114 mg/dL High 70-100 Blood Urea Nitrogen 39 mg/dL High 6-24 Creatinine 1.70 mg/dL High 0.51-0.95 BUN/Creatinine Ratio 22.9 High 8-20 Calcium 8.6 mg/dL Normal 8.6-10.3 Egfr Non- 29.6 >60 Egfr 35.9 >60 1 Laboratory test 02/17/2019 [facility] Phosphorus 3.2 mg/dL Normal 2.5-5.0 finding [address] [place] [address] [phone] 1 Because ethnic data is not always [...] dialysis) Procedures Date Code Description Status 06/03/2019 07840 EKG Tracing & Interpretation Completed 04/27/2019 38262 [facility] Measurement Heart Rate, Completed Oximetry 04/18/2019 28803 [facility] Measurement Heart Rate, Completed Oximetry 01/19/2019 16452 Polysomnography Sleep Staging 4+ Parameters W/Cpap Completed 10/29/2018 [id number] Colonoscopy Completed 08/24/2018 [id number] Mammogram Completed 06/30/2017 [id number] Mammogram Completed 06/04/2017 [id number] Bone Mineral Density Test Completed 11/12/2015 95237440 Colonoscopy Completed 10/25/2008 [id number] Diabetic Foot Exam Completed Medical Devices Description No Information Available Encounters Type Date Location Provider Dx Diagnosis Office Visit 07/05/2019 [facility] Blas Bill, I82.502 Chronic embolism 11:45a [facility] FACC and thombos unsp deep veins of l low extrem N18.9 Chronic kidney disease, unspecified Office Visit 06/28/2019 11:00a Surgical Kina Yu K43.9 [facility] without obstruction or gangrene Office Visit 06/03/2019 1:40p [facility] Blas Ly I50.32 Chronic diastolic Of [place] Bill DO (congestive) heart FACC failure N18.9 Chronic kidney disease, unspecified R60.0 Localized edema Z98.84 Bariatric surgery status I10 Essential (primary) hypertension Z86.718 Personal history of other venous thrombosis and embolism Office Visit 04/04/2019 [facility] G47.33 Obstructive sleep 11:30a [facility] L[facility]O Woodall apnea (adult) [facility] (pediatric) G47.00 Insomnia, unspecified R09.02 Hypoxemia Office Visit 02/17/2019 [facility] Internal Tanisha F51.04 Psychophysiologic 1:20p Juan Maria M.D. insomnia Ccmob N18.9 Chronic kidney disease, unspecified L30.9 Dermatitis, unspecified Office Visit 02/14/2019 [facility] G47.33 Obstructive sleep 2:00p [facility] Woodall apnea (adult) [facility] (pediatric) G47.00 Insomnia, unspecified R09.02 Hypoxemia Assessments Date Code Description Provider 07/05/2019 I82.502 Chronic embolism and thrombosis of Blas Bill, DO FACC unspecified deep veins of left lower extremity 07/05/2019 N18.9 Chronic kidney disease, unspecified Blas Bill, DO FACC 06/28/2019 K43.9 Ventral hernia without obstruction or Kina Yu MD gangrene 06/17/2019 G47.33 Obstructive sleep apnea (adult) Gill Nguyễn MD (pediatric) 06/17/2019 R10.9 Unspecified abdominal pain Gill Nguyễn MD 06/17/2019 N18.3 Chronic kidney disease, stage 3 Gill Nguyễn MD (moderate) 06/17/2019 I50.32 Chronic diastolic (congestive) heart Gill Nguyễn MD failure 06/17/2019 M40.204 Unspecified kyphosis, thoracic region Gill Nguyễn MD 06/17/2019 R10.817 Generalized abdominal tenderness Gill Nguyễn MD 06/03/2019 I50.32 Chronic diastolic (congestive) heart Blas Bill DO FACC failure 06/03/2019 N18.9 Chronic kidney disease, unspecified Blas Bill DO FACC 06/03/2019 R60.0 Localized edema Blas Bill DO FACC 06/03/2019 Z98.84 Bariatric surgery status Blas Bill DO FACC 06/03/2019 I10 Essential (primary) hypertension Blas Bill DO FACC 06/03/2019 Z86.718 Personal history of other venous Blas Bill, DO [facility] thrombosis and embolism 04/27/2019 R09.02 Hypoxemia Nurse Visit A 04/18/2019 R09.02 Hypoxemia Nurse Visit A 04/18/2019 G47.33 Obstructive sleep apnea (adult) Nurse Visit A (pediatric) 04/04/2019 G47.33 Obstructive sleep apnea (adult) Meredith Woodall NP (pediatric) 04/04/2019 G47.00 Insomnia, unspecified Meredith Woodall NP 04/04/2019 R09.02 Hypoxemia Meredith Woodall NP 02/17/2019 F51.04 Psychophysiologic insomnia Tanisha Marai M.D. 02/17/2019 N18.9 Chronic kidney disease, unspecified Tanisha Maria M.D. 02/17/2019 L30.9 Dermatitis, unspecified Tanisha Maria M.D. 02/14/2019 G47.33 Obstructive sleep apnea (adult) Meredith Woodall NP (pediatric) 02/14/2019 G47.00 Insomnia, unspecified Meredith Woodall NP 02/14/2019 R09.02 Hypoxemia Meredith Woodall NP 01/19/2019 G47.33 Obstructive sleep apnea (adult) Tasneem Virk MD (pediatric) Plan of Treatment Future Appointment(s):09/08/2019 11:40 am - Blas Bill DO FAC at [facility]08/03/2019 1:30 pm - GHAZALA WelshW at [facility] Internal Medicine - [facility]07/20/2019 1:30 pm - GHAZALA WelshW at [facility] 1:30 pm - GHAZALA WelshW at [facility] Internal Medicine - [facility]10/03/2019 1:00 pm - Meredith Woodall NP at [facility]07/05/2019 - Blas Bill DO FACCI82.502 Chronic embolism and thrombosis of unspecified deep veins of left lower extremityNew Orders:Doppler-Venous Lower Extremity Left, Scheduled: 08/30/19Follow up: schedule US left leg in 2 months and have patient f/u [id number] Chronic kidney disease, unspecified Functional Status Description No Information Available Mental Status Description No Information Available Referrals Refer to Reason for Referral Status Appt Date Kina Yu MD Sent 06/28/2019 [address] [place], [place] [address] [phone]
--- OUTSIDE RECORDS SUMMARY | 2019-08-14 03:38 | XMS REPORT | Continuity of Care Document ---
:1945 External Reference #:[id number] Author Name Kina Yu MD (transmitted by agent of provider Robles Sher) Address [address], [place] [address] Care Team Providers Name Role Phone Tanisha Maria MD - Internal Care Team Information Cutter Inspector [phone] Medicine Ronny Beckwith MD - Nephrology Care Team Information Cutter Inspector Problems Active Problems Provider Date Hyperlipidemia Tanisha [...] Unknown Never Smoked Cigarettes Smoking Status Reviewed: 06/28/19 Never Smoked Cigarettes ETOH Use Denies alcohol [...] 1units Tanisha Maria, 02/22/2019 B[employer] Large M.DDanny [facility] Oxygen Please use 2L at R09.02 Meredith 02/14/2019 [facility] night with cpap LELO Woodall Esomeprazole Take 1 Capsule By 180caps K21.9 Dilan Coughlin NP 04/07/2018 Magnesium Mouth Twice A Day. 40mg Capsules DR Forrest standard adjustable 1units Tanisha Maria, 04/05/2018 [facility] height cane. M.D. Shingrix intramuscular x 1 [...] a day Tanishateagan Maria, 04/29/2017 otc M.D. [id number]-Unit Tablets Cpap Machine Unknown Nighttime Sleep Aid [...] CPT Code Status Date Vaccine Lot # 60741 Given 03/03/2019 Fluzone High Dose 75025 Given 06/25/2018 Zoster (Shingles) Vaccine (HZV), Recombinant, Subunit, Adjuvanted 90619 Given 03/04/2018 Influenza Virus Vaccine, Quadrivalent, Split, Preservative Free 68850 Given 02/24/2018 Zoster (Shingles) Vaccine (HZV), Recombinant, Subunit, Adjuvanted 28439 Given 07/02/2017 Pneumococcal Conjugate Vaccine 13 Valent For [id number] Intramuscular Use 85531 Given 02/19/2017 Influenza Virus Vaccine, Quadrivalent, Split, [id number] Preservative Free 40332 Given 12/21/2015 Tdap - Tetanus/Diptheria/Acellular Pertussis 78164 Given 12/21/2015 Pneumococcal Conjugate Vaccine 13 Valent For Intramuscular Use Vital Signs Date Vital Result Comment 06/28/2019 11:16am Height 64 inches 5'4" Weight 174.00 lb Heart Rate 96 /min BP Systolic Sitting 108 mmHg BP Diastolic Sitting 72 mmHg Respiratory Rate 16 /min Body Temperature 98.1 F BMI (Body Mass Index) 29.9 kg/m2 06/17/2019 1:50pm Height 64 inches 5'4" Weight 174.00 lb Heart Rate 91 /min BP Systolic 115 mmHg BP Diastolic 70 mmHg Body Temperature 98.4 F O2 % BldC Oximetry 93 % BMI (Body Mass Index) 29.9 kg/m2 Results Test Acquired Date Facility Test Result H/L Range Note Order 04/18/2019 [facility] In-House 6 Minute Walk 87% resting Laboratory test 02/17/2019 [facility] Magnesium 2.1 mg/dL Normal 1.9-2.7 finding [address] [place] [address] [phone] Basic Metabolic 02/17/2019 [facility] Sodium 142 mmol/L Normal 135-145 Panel [address] [place] [address] [phone] Potassium 4.2 mmol/L Normal 3.5-5.0 Chloride 104 mmol/L Normal 101-111 Co2 Carbon Dioxide 32 mmol/L Normal 22-32 Anion Gap 6 mmol/L Normal 2-11 Glucose 114 mg/dL High 70-100 Blood Urea Nitrogen 39 mg/dL High 6-24 Creatinine 1.70 mg/dL High 0.51-0.95 BUN/Creatinine Ratio 22.9 High 8-20 Calcium 8.6 mg/dL Normal 8.6-10.3 Egfr Non- 29.6 >60 Egfr 35.9 >60 1 Laboratory test 02/17/2019 [facility] Phosphorus 3.2 mg/dL Normal 2.5-5.0 finding [address] [place] [address] [phone] 1 Because ethnic data is not always [...] dialysis) Procedures Date Code Description Status 06/03/2019 41608 EKG Tracing & Interpretation Completed 04/27/2019 56216 [facility] Measurement Heart Rate, Completed Oximetry 04/18/2019 45426 [facility] Measurement Heart Rate, Completed Oximetry 01/19/2019 57630 Polysomnography Sleep Staging 4+ Parameters W/Cpap Completed 10/29/2018 [id number] Colonoscopy Completed 08/24/2018 [id number] Mammogram Completed 06/30/2017 [id number] Mammogram Completed 06/04/2017 [id number] Bone Mineral Density Test Completed 11/12/2015 [id number] Colonoscopy Completed 10/25/2008 722253058 Diabetic Foot Exam Completed Medical Devices Description No Information Available Encounters Type Date Location Provider Dx Diagnosis Office Visit 06/03/2019 [facility] Blas Bill, I50.32 Chronic diastolic 1:40p Of [facility] DO FACC (congestive) heart failure N18.9 Chronic kidney disease, unspecified R60.0 Localized edema Z98.84 Bariatric surgery status I10 Essential (primary) hypertension Z86.718 Personal history of other venous thrombosis and embolism Office Visit 04/04/2019 [facility] G47.33 Obstructive sleep 11:30a [facility] Of LELO Woodall apnea (adult) [facility] (pediatric) G47.00 Insomnia, unspecified R09.02 Hypoxemia Office Visit 02/17/2019 [facility] Internal Tanisha F51.04 Psychophysiologic 1:20p Juan Maria M.D. insomnia Ccmob N18.9 Chronic kidney disease, unspecified L30.9 Dermatitis, unspecified Office Visit 02/14/2019 [facility] G47.33 Obstructive sleep 2:00p [facility] apnea (adult) [facility] (pediatric) G47.00 Insomnia, unspecified R09.02 Hypoxemia Assessments Date Code Description Provider 06/28/2019 K43.9 Ventral hernia without obstruction or [...] Chronic diastolic (congestive) heart Blas Bill, DO [facility] failure 06/03/2019 N18.9 Chronic kidney disease, unspecified Blas Bill, DO [facility] 06/03/2019 R60.0 Localized edema Blas Bill, DO [facility] 06/03/2019 Z98.84 Bariatric surgery status Blas Bill, DO [facility] 06/03/2019 I10 Essential (primary) hypertension Blas Bill, DO [facility] 06/03/2019 Z86.718 Personal history of other venous Blas Bill, DO [facility] thrombosis and embolism 04/27/2019 R09.02 Hypoxemia [...] MD (pediatric) Plan of Treatment Future Appointment(s):07/06/2019 11:00 am - Kina Yu MD at [facility]06/29/2019 1:00 pm - Nurse Visit A at [facility] Internal Medicine - [facility]08/03/2019 1:30 pm - Olamide Key, COMMERCIAL REAL ESTATE ASSISTANT at [facility] Internal Medicine - [facility]05/2020 1:30 pm - Olamide Key, COMMERCIAL REAL ESTATE ASSISTANT at [facility] Internal Medicine - [facility]07/06/2019 1:30 pm - Olamide Key, COMMERCIAL REAL ESTATE ASSISTANT at [facility] Internal Medicine - [facility]10/03/2019 1:00 pm - Meredith Woodall NP at [facility] Functional Status Description No Information Available Mental Status Description No Information Available Referrals Refer to Dr Reason for Referral Status Appt Date Kina Yu MD Sent 06/28/2019 [address] [place], [place] [address] [phone]
[2019-08-14] MEDS ORDERED: Iodixanol* (CONTRAST) 320 MG/ML 100 ML SDV IV ONE (03:40)
[2019-08-14] MEDS ORDERED: Nitro 2% OINT* (Nitroglycerin) 1 INCH/PAK PAK TOPICAL ONE (04:03)
[2019-08-14] MEDS ORDERED: Morphine 4 MG/ML VIAL (1 ml) 4 MG/ML VIAL IV ONE (04:03)
[2019-08-14 04:54] LABS: ABS Eosinophils 0.1 10^3/ul (0-0.6); ABS Lymphocytes 0.8 10^3/ul (1.0-4.8); ABS Monocytes 0.8 10^3/ul (0-0.8); ABS Neutrophils 5.4 10^3/ul (1.5-7.7); Eosinophil % 1.6 %; Hematocrit 32 % (35-47); Hemoglobin 10.4 g/dL (12.0-16.0); Lymphocyte % 11.6 %; Mean Corpuscular HGB Conc 32 g/dL (31-36); Mean Corpuscular Hemoglobin 34 pg (27-31); Mean Corpuscular Volume 105 fL (80-97); Mean Platelet Volume 9.3 fL (7.4-10.4); Platelet Count 122 10^3/uL (150-450); Red Blood Count 3.09 10^6 /uL (3.70-4.87); Red Cell Distribution Width 14 % (10-15); White Blood Count 7.1 10^3/uL (3.5-10.8)
[2019-08-14 05:08] LABS: Albumin 3.3 g/dL (3.2-5.2); Albumin/Globulin Ratio 1.6 (1-3); BUN/Creatinine Ratio 26.7 (8-20); Calcium 8.4 mg/dL (8.6-10.3); EGFR African American 34.3 (>60); EGFR Non-African American 28.4 (>60); Globulin 2.1 g/dL (2-4); Potassium 3.8 mmol/L (3.5-5.0); Total Bilirubin 0.5 mg/dL (0.2-1.0); Total Protein 5.4 g/dL (6.4-8.9)
[2019-08-14 05:10] LABS: Troponin I 0.01 ng/mL (<0.03)
[2019-08-14] MEDS ORDERED: Al Hydrox/Mg Hydrox/Simet LIQ* 30 ML UDC PO ONE (06:52)
[2019-08-14] MEDS ORDERED: Lidocaine 2% VISCOUS* 15 ML UDC PO ONE (06:52)
[2019-08-14] MEDS ORDERED: oxyCODONE TAB* 5 MG TAB PO ONE (06:52)
--- NOTE | 2019-08-14 07:13 | ED ---
Progress - Progress Note Progress Note: [facility]. Patient is a sign out from Dr. Kike Wallace to Dr. Noman Reddy at change of shifts at 0700 on 08/14/2019, pending second troponin. - Results/Orders Results/Orders: An EKG at 0732 revealed NSR at 96 BPM, no significant ST elevations, Q waves in III and aVF. Dr. Reddy has reviewed and interpreted this EKG. Re-Evaluation - Re-Evaluation First Eval Re-Evaluation Time: 07:25 Comment: Discussed results and the ice puller's recommendations with patient. Patient agrees to be admitted to [facility]. Course/Dx - Course Course Of Treatment: Patient is a 74-year-old female who came in with the chief complaint of chest pain. Dr. Wallace signed out this patient at shift change. Dr. Wallace requests for the patient to be admitted to the hospital services. I discussed the case with Dr. Ervin and she requests for me to speak with ice puller. Therefore, I discuss the physical exam findings and EKG with Dr. Bill and he RECOMMENDS FOR THE PATIENT TO BE ADMITTED TO THE HOSPITAL SERVICES TO RULE OUT ACUTE coronary syndrome. I discuss my physical exam and test results with Dr. Ervin from the hospitalist services and she agrees to admit the patient to her services. The patient is hemodynamically stable alert and oriented x 3. - Diagnoses Provider Diagnoses: Chest pain - Provider Notifications Discussed Care Of Patient With: Lennie Ervin Time Discussed With Above Provider: 07:16 Instructed by Provider To: Other - Discussed patient case with Dr. Ervin, hospitalist, who requested a cardiology consult. At 0724, discussed patient case with Dr. Bill, ice puller, who stated that the patient's EKG does not show any reciprocal changes and is all over the place, so he recommended a cardiology workup and waiting for the second troponin before admitting the patient. At 0740, discussed patient case with Dr. Ervin, hospitalist, who accepted the patient for admission to [facility]. Discharge ED - Sign-Out/Discharge Documenting (check all that apply): Patient Departure - Admit, Receiving Sign- Out Receiving patient FROM: Kike Wallace - Discharge Plan Condition: Fair Disposition: ADMITTED TO [facility] Referrals: Tanisha Maria MD [Primary Care Provider] - - Attestation Statements Document Initiated by Solangeibilda: Yes Documenting Scribe: Dao Toledo Provider For Whom Scribe is Documenting (Include Credential): Noman Reddy MD Scribe Attestation: I, Dao Toledo, scribed for Noman Reddy MD on 08/14/19 at 0857. Status of Scribe Document: Ready
[2019-08-14 10:27] LABS: HDL Cholesterol 53.3 mg/dL
[2019-08-14] MEDS ORDERED: fentaNYL PATCH 25 MCG/HR TRANSDERM SCH (10:30)
[2019-08-14] MEDS: Multivitamins/Minerals TAB PO SCH (11:04)
[2019-08-14] MEDS: Atorvastatin* 10 MG TAB PO SCH (11:04)
[2019-08-14] MEDS: Pantoprazole TAB * 40 MG TAB PO SCH ×2 (11:04→20:33)
[2019-08-14] MEDS: Enoxaparin(*) 30 MG/0.3 ML SYR SUBCUT SCH (11:04)
[2019-08-14] MEDS: Furosemide TAB* 20 MG PO SCH ×2 (11:04→12:27)
[2019-08-14] MEDS: Magnesium Oxide TAB* 400 MG PO SCH (11:04)
[2019-08-14] MEDS: Sertraline* 100 MG TAB PO SCH (11:04)
[2019-08-14] MEDS: Carvedilol TAB* 25 MG PO SCH ×2 (11:11→20:33)
--- NOTE | 2019-08-14 11:55 | ECHO ---
*[facility]* [place] [address] Fax #: [phone] Transthoracic Echocardiogram Patient: Elsi Mg : 1945 Study Date: 08/14/2019 Age: 74 Gender: F HR: 100 bpm Height: 66 in /167.6 cm BSA: 1.91 m^2 Weight: 178.6 lb /81.2 kg BMI: 28.9 kg/m^2 *Materials Associate: * Rebeca Olea [facility] *Referring Physician: * Lennie Ervin *Reading Physician: * Blas Bill MD Indications: Chest Pain, unspecified. History: Chronic renal failure. Risk factors: Hypertension. Conclusions Summary: - Left ventricle: The cavity size is mildly reduced. Wall thickness is mildly increased. Systolic function is normal. The estimated ejection fraction is 65-70%. Wall motion is normal; there are no regional wall motion abnormalities. - Right ventricle: The cavity size is normal. Systolic function is normal. - Left atrium: The atrium is normal in size. - Tricuspid valve: There is mild regurgitation. - Pulmonary arteries: Systolic pressure is within the normal range. Study data: Transthoracic echocardiogram. Procedure: Transthoracic echocardiography was performed. Image quality was adequate. Complete 2D, spectral Doppler, and color flow Doppler. Location: Bedside. Patient status: Inpatient. Patient room number: 444 01. Rhythm: Normal sinus rhythm. Findings Left ventricle: The cavity size is mildly reduced. Wall thickness is mildly increased. Systolic function is normal. The estimated ejection fraction is 65-70%. Wall motion is normal; there are no regional wall motion abnormalities. Left ventricular diastolic function parameters are normal for the patient's age. Right ventricle: The cavity size is normal. Systolic function is normal. Left atrium: The atrium is normal in size. Right atrium: The atrium is normal in size. There is the appearance of a prominent Chiari network, A4C. Mitral valve: The leaflets are normal thickness. There is no evidence of stenosis. Aortic valve: The annulus is mildly calcified. The valve is trileaflet. The leaflets are mildly thickened. There is no evidence of stenosis. There is no significant regurgitation. Tricuspid valve: The leaflets are normal thickness. There is no evidence of stenosis. There is mild regurgitation. Pulmonic valve: The leaflets are normal thickness. There is no evidence of stenosis. There is no significant regurgitation. Aorta: Aortic root: The aortic root is appears normal and calcified. Ascending aorta: The ascending aorta is appears normal. Aortic arch: The aortic arch is appears normal. Pericardium: There is no significant pericardial effusion. Pulmonary arteries: Systolic pressure is within the normal range. Systemic veins: Inferior vena cava: The vessel is dilated. There is (< 50%) respiratory change in the IVC dimension. Measurements Left ventricle Value Ref Aortic valve continued Value Ref SHANITA, LAX (L) 3.2 cm 3.8 - 5.2 VTI, S 26.8 cm --------- ESD, LAX 2.3 cm 2.2 - 3.5 Mean grad, S 4.0 mm Hg --------- FS, LAX 29 % 27 - 45 Peak grad, S 7.0 mm Hg --------- PW, ED, LAX (H) 1.1 cm 0.6 - 0.9 E', lat dolores, TDI (L) 5.8 cm/sec >=10.0 Mitral valve Value R ef E/e', lat dolores, 12 Peak E 0.67 m/sec ---- ----- TDI Peak A 0.84 m/sec --------- E', med dolores, TDI (L) 6.3 cm/sec >=7.0 Decel time 53 ms - -------- E/e', med dolores, 11 Peak E/A ratio 0.8 ---- ----- TDI E', avg, TDI 6.1 cm/sec Pulmonic valve Value Ref E/e', avg, TDI 11 <=14 Peak v, S 0.84 m/sec - -------- Peak grad, S 3.0 mm Hg --------- LVOT Value Ref Peak danielle, S 1.32 m/sec Tricuspid valve Value Ref Peak grad, S 7 mm Hg TR peak v 2.5 m/sec <=2.8 Mean grad, S 4 mm Hg Peak RV-RA grad, 25 mm Hg --------- S Ventricular septum Value Ref IVS, ED (H) 1.1 cm 0.6 - 0.9 Aortic root Value Ref Root diam 2.8 cm <4.1 Right ventricle Value Ref Root max 1.5 cm/m^2 1.4 - 2.2 SHANITA, LAX 2.6 cm diam/bsa, ED SHANITA minor ax, A4C 2.7 cm 1.9 - 3.5 mid Ascending aorta Value Ref Pressure, S 33 mm Hg AAo AP diam, S 2.3 cm --------- AAo AP diam/bsa, 1.2 cm/m^2 --------- Left atrium Value Ref S AP dim, ES 3.60 cm 2.70 - 3.80 Aortic arch Value Ref ML dim, A4C 3.5 cm Arch diam 2.8 cm --------- SI dim, A4C 4.4 cm Arch diam/bsa 1.5 cm/m^2 --------- Vol/bsa, ES, 1-p 21 ml/m^2 11 - 40 A4C Decending aorta Value Ref Saurabh peak danielle 0.7 m/sec --------- Right atrium Value Ref SI dim, ES 3.6 cm 3.4 - 5.3 Pulmonary artery Value Ref ML dim, ES, A4C 3.7 cm 2.6 - 4.4 Pressure, S 30.0 mm Hg --------- Estimated RAP 8 mm Hg Inferior vena cava Value Ref Aortic valve Value Ref Diam 2.4 cm --------- Dolores diam, ED 2.0 cm Dolores diam/bsa, ED 1.0 cm/m^2 Peak v, S 1.34 m/sec Legend: (L) and (H) kinjal values outside specified reference range. Prepared and electronically signed by Blas Bill MD 08/14/2019 11:55
[2019-08-14] MEDS: CMC:Solifenacin(NF) 5 MG TAB PO SCH (12:04)
[2019-08-14] MEDS: traMADol TAB* 50 MG PO PRN ×2 (12:26→20:33)
--- NOTE | 2019-08-14 12:39 | HP ---
CC: Tanisha Maria MD HISTORY AND PHYSICAL: DATE OF ADMISSION: PRIMARY CARE PHYSICIAN: Tanisha Maria MD HEALTHCARE PROXY: Antonio, her son, his cell phone [phone]. CODE STATUS: Full. SOURCE: The patient, although history limited after narcotics in the emergency room. CHIEF COMPLAINT: Diffuse chest pain for few hours. HISTORY OF PRESENT ILLNESS: Ms. Mg is a 74-year-old woman with heart failure, preserved ejection fraction ; CKD; hypertension; DVT, not on anticoagulation; JOSIE, on CPAP; obesity, status post gastric bypass in 2012; who is presenting with acute onset of diffuse anterior chest pain radiating to her neck. She states this started when she was having dinner with her son last night. She reports that the chest pain is associated with shortness of breath, but denies cough, fevers, myalgias, nausea , vomiting, constipation, diarrhea, dysuria. The patient reports that she was in her usual state of health until she was eating dinner. She states she has had no prior similar symptoms and has no history of cardiac disease. The pain improved in the emergency room with morphine, oxycodone, and nitroglycerin. PAST MEDICAL HISTORY: 1. CKD possibly related to history of NSAID use and hypertension. 2. Obesity, status post gastric bypass in 2012. 3. DVT, was on Xarelto in 2016, but now declines anticoagulation as she fears bleeding risk. 4. Hypertension. 5. Depression. 6. JOSIE, on nightly CPAP. 7. HFpEF follows with Dr. Bill. 8. Anemia thought to be due to CKD. 9. Pulmonary hypertension, mild to moderate. 10. Gastroesophageal reflux disease with EGD showing hiatal hernia, mild gastritis, and negative H. pylori. 11. Osteoporosis. 12. Degenerative disk disease of back. 13. Kyphosis and scoliosis complicated by chronic back pain, on opioids. HOME MEDICATIONS: 1. Carvedilol 25 mg twice a day. 2. Furosemide 20 mg twice a day. 3. Pravastatin 40 mg daily. 4. Fentanyl patch 25 mcg an hour patch. 5. Tramadol 50 mg t.i.d. as needed for pain. 6. Gabapentin 300 mg 4 times a day as needed for pain. 7. Sertraline 100 mg a day. 8. Esomeprazole 40 mg twice a day. 9. Ferrous sulfate 325 mg once a day. 10. Multivitamin once a day. 11. Vitamin B12 one tablet daily. 12. Melatonin 10 mg nightly. 13. Solifenacin 5 mg daily. 14. Magnesium oxide 400 mg daily. ALLERGIES: HUMIRA caused rash; CODEINE, reaction unknown; PREGABALIN, rash; STRESS TEST DYE, shortness of breath and hives. FAMILY HISTORY: The patient's father at age 53 from end-stage renal disease. The patient's mother is alive and in her 90s - she has diabetes and hypertension. SOCIAL HISTORY: The patient lives alone in [facility]. She is a retired [employer]. She has 2 grown children and her son, Antonio, is her healthcare proxy. She denies current or history of tobacco or recreational drug use. She reports occasional wine with dinner. REVIEW OF SYSTEMS: Complete 10-point review of systems was performed and pertinent positives and negative are listed in the HPI. PHYSICAL EXAMINATION GENERAL: The patient is very comfortable appearing and frequently falls asleep by during interview. VITAL SIGNS: Afebrile. Heart rate 100, blood pressure 95/63, respiratory rate 17, oxygen saturation 94% on 4 L, but improved when the patient encouraged to breathe. HEENT: Bilateral miosis, equal and reactive to light. NECK: No JVD. Supple. LUNGS: Clear to auscultation bilaterally. HEART: Tachycardic. Regular rhythm. No murmurs, gallops, or rubs. ABDOMEN: Protuberant caudally, soft, nontender. The patient reports this shape is her baseline. EXTREMITIES: Warm and well perfused. 1+ edema in left lower extremity. Trace edema in right lower extremity. Distal lower extremity skin thickened, dry, and hyperpigmented. NEUROLOGIC: A and O x3. Answers questions appropriately, but requires frequent prompting to wake her up. PERTINENT STUDIES/LAB DATA: CBC notable for macrocytic anemia at 10.4, which is near the patient's baseline. Platelets 122, also the patient's baseline thrombocytopenia. BUN/creatinine 47/1.76 at baseline. Vitamin B12 of 933. CTA chest, abdomen, and pelvis without aortic dissection, no pulmonary embolus, coronary artery calcifications are noted, alveolar opacities in the lingula and lower lungs bilaterally, possibly pneumonias. EKG: Normal sinus rhythm, rate 96. Submillimeter ST elevation in V2, which resolves on repeat. No new T-wave inversions. No Q waves. ASSESSMENT AND PLAN: Ms. Mg is a 74-year-old woman with CKD, HFpEF, HTN, obesity s/p gastric bypass; and JOSIE on CPAP; who is presenting with acute onset of diffuse anterior chest pain radiating to her neck. She is found without concerning EKG changes and a negative troponin, with CTA C/A/P normal. 1. Chest pain. The patient has cardiac risk factors, most significantly longstanding history of hypertension, obesity, and age in her 70s, however, as her MELANIE score is 1, she is not a candidate for inpatient stress test. She will be ordered for a transthoracic echocardiogram and a third and final troponin. She will remain on telemetry and we will continue monitor for recurrence of chest pain. The patient reports resolved with opioids and nitro. Continue home atorvastatin 10 mg daily and home beta-santa. Pain may be GI in origin as it started with eating. Will trial H2 santa prn. 2. HFpEF. Pending repeat transthoracic echocardiogram as the patient is now presenting with chest pain. Continue the patient's home furosemide 20 mg twice a day. 3. Hypertension. Continue home carvedilol 25 mg twice a day. 4. Gastritis. Continue home PPI twice a day. 5. Depression. Continue home sertraline 100 mg daily. 6. Chronic back pain. Continue the patient's home fentanyl patch 25 mcg and tramadol 50 mg t.i.d. as needed. The patient also takes gabapentin up to 4 times a day as needed for back pain. We will clarify this with patient after narcotics given in the ER are metabolized. 7. Obesity, status post gastric bypass. The patient takes iron, B12, calcium, vitamin D3, and magnesium supplement at home. We will continue these here. 8. DVT prophylaxis. Initiate Lovenox subcu daily. 9. Code status. Full. TIME SPENT: Approximately 60 minutes was spent on admission of this patient, more than half of which was spent in care and coordination at bedside for interview and exam. [id number]/[facility] #: [id number] [facility]
[2019-08-14] MEDS ORDERED: Famotidine TAB* 20 MG PO PRN (17:15)
[2019-08-14] MEDS: fentaNYL Patch Check Q Shift 1 NOTE FOLLOW UP SCH (18:41)
[2019-08-14] MEDS: Gabapentin CAP(*) 300 MG PO PRN (20:32)
[2019-08-14] MEDS: Acetaminophen TAB* 325 MG PO PRN (20:33)
[2019-08-14] MEDS ORDERED: Melatonin 3 MG TAB PO SCH (21:00)
[2019-08-15] MEDS: fentaNYL Patch Check Q Shift 1 NOTE FOLLOW UP SCH (06:41)
[2019-08-15] MEDS ORDERED: Carvedilol TAB* 25 MG PO SCH (08:00)
[2019-08-15 08:45] LABS: ABS Lymphocytes 0.6 10^3/ul (1.0-4.8); ABS Monocytes 0.7 10^3/ul (0-0.8); ABS Neutrophils 5.7 10^3/ul (1.5-7.7); Eosinophil % 0.3 %; Hematocrit 32 % (35-47); Hemoglobin 10.4 g/dL (12.0-16.0); Lymphocyte % 8.3 %; Mean Corpuscular HGB Conc 33 g/dL (31-36); Mean Corpuscular Hemoglobin 33 pg (27-31); Mean Corpuscular Volume 103 fL (80-97); Mean Platelet Volume 9.2 fL (7.4-10.4); Platelet Count 112 10^3/uL (150-450); Red Blood Count 3.11 10^6 /uL (3.70-4.87); Red Cell Distribution Width 13 % (10-15); White Blood Count 7.1 10^3/uL (3.5-10.8)
[2019-08-15] MEDS ORDERED: Metoprolol Succinate XL TAB* 25 MG PO SCH (09:00)
[2019-08-15] MEDS: Atorvastatin* 10 MG TAB PO SCH (09:28)
[2019-08-15] MEDS: Multivitamins/Minerals TAB PO SCH (09:28)
[2019-08-15] MEDS: CMC:Solifenacin(NF) 5 MG TAB PO SCH (09:28)
[2019-08-15] MEDS: Magnesium Oxide TAB* 400 MG PO SCH (09:29)
[2019-08-15] MEDS: Furosemide TAB* 20 MG PO SCH ×3 (09:29→13:17)
[2019-08-15] MEDS: Sertraline* 100 MG TAB PO SCH (09:29)
[2019-08-15] MEDS: Pantoprazole TAB * 40 MG TAB PO SCH (09:29)
[2019-08-15] MEDS: Acetaminophen TAB* 325 MG PO PRN (09:36)
[2019-08-15] MEDS: traMADol TAB* 50 MG PO PRN (10:38)
[2019-08-15] MEDS: Gabapentin CAP(*) 300 MG PO PRN (10:39)
[2019-08-15] MEDS: Enoxaparin(*) 30 MG/0.3 ML SYR SUBCUT SCH (10:40)
[2019-08-15 11:29] VITALS: BP 113/64
--- NOTE | 2019-08-16 06:18 | DS ---
CC: Dr. Tanisha Maria; Dr. Blas Bill * DISCHARGE SUMMARY: DATE OF ADMISSION: 08/14/19 DATE OF DISCHARGE: 08/15/19 PRIMARY CARE PHYSICIAN: Dr. Tanisha Maria. PROJECT FINANCE ANALYST: Dr. Blas Bill. PRIMARY DIAGNOSES: 1. Chest pain of unclear etiology, possibly viral syndrome. 2. Hypertension. SECONDARY DIAGNOSES: 1. Chronic kidney disease. 2. Obesity, status post gastric bypass. 3. Obstructive sleep apnea, on CPAP. 4. Heart failure with preserved ejection fraction. 5. Gastroesophageal reflux disease. 6. Degenerative disk disease of back with chronic pain, on opioids. DISCHARGE MEDICATIONS: 1. Metoprolol succinate 25 mg daily. 2. Pravastatin 40 mg daily. 3. Sertraline 100 mg daily. 4. Furosemide 20 mg daily. 5. Esomeprazole 40 mg twice a day. 6. Fentanyl 25 mcg an hour patch. 7. Tramadol 50 mg t.i.d. p.r.n. pain. 8. Gabapentin 300 mg q.i.d. p.r.n. pain. 9. Solifenacin 5 mg daily. 10. Multivitamin tablet daily. 11. Mag oxide 400 mg daily. 12. Iron 65 mg daily. 13. Flaxseed oil daily. 14. Calcium/vitamin D3 one tablet daily. HISTORY OF PRESENT ILLNESS: Ms. Mg is a 74-year-old woman with heart failure , preserved ejection fraction; CKD; hypertension; DVT, not on AC; JOSIE, on CPAP; obesity, status post gastric bypass, who is presenting with acute onset of diffuse anterior chest pain radiating to her neck. She states this started when she was having dinner with her son on day prior to presentation. She reports the chest pain is associated with mild shortness of breath, but denies cough, fevers, chills, myalgia, nausea, vomiting, constipation, diarrhea, or dysuria. She reports that she was in her usual state of health until these symptoms started after dinner. She denied a history of similar symptoms and also denied a history of coronary artery disease. HOSPITAL COURSE: In the emergency room, the patient was given morphine, oxycodone, nitroglycerin, and because of this, initial history by hospitalist team was limited given the patient's somnolence. The patient was admitted to the medical service for repeat troponins, all three of which came back negative. Also on day of admission, the patient underwent a transthoracic echocardiogram which showed LV cavity size mildly reduced with wall thickness mildly increased, but normal systolic function without focal wall motion abnormalities. By the end of her first day of admission, her symptoms had resolved. By the next day, the patient continued to feel well and desired to return home and follow up with her outpatient providers. It was unclear why the patient had chest pain that resolved spontaneously without intervention. Of note, the patient did have one temperature during hospitalization to 100.3, although she denied any focal infectious symptoms and was without leukocytosis. It was thought maybe the patient had a mild viral illness that she is already recovering from. Also, of note the patient did require supplemental oxygen throughout most of the hospitalization, although she was able to be weaned off this after 1 day without extra diuretics. The patient reports that she intermittently uses oxygen at home and she also uses a CPAP machine at night, so this is thought to be her baseline. Only change to the patient's home medication was discontinuation of home carvedilol as the patient's blood pressures were frequently in the systolic 90s. After stopping carvedilol and switching instead to metoprolol, her heart rate remained at goal and her blood pressure increased to 113/64 and she was deemed ready for discharge home. PHYSICAL EXAMINATION: Afebrile, heart rate 92, blood pressure 113/64, respiratory rate 18, oxygen saturation 92% on room air. In general, she is a frail appearing elderly woman, in no acute distress, who is alert, interactive, very engaging and pleasant. Neck: No JVD. HEENT: With moist mucous membranes. OP clear. Lungs: Clear to auscultation bilaterally. Heart: Regular rate and rhythm. No murmurs, gallops, or rubs. Abdomen: Protuberant caudally but soft and nontender. The patient reports this is her baseline abdominal shape. Extremities: Warm, well perfused. 1+ edema in left lower extremity with trace edema in the right lower extremity. Distal lower extremity skin is thickened, dry, and hyperpigmented. Neuro: A and O x3 without focal deficits. PERTINENT DIAGNOSTIC STUDIES: CBC notable for anemia to 10.4 which may be the patient's baseline with MCV 103. Platelets 122, which is the patient's baseline. BMP notable for creatinine 1.76, which is also the patient's baseline. Vitamin B12 of 933 which is high. LDL 41, HDL 53, and triglycerides 138. Troponins negative x3. A1c 5.1. Chest, abdomen, and pelvis CTA without aortic dissection, no pulmonary embolism , alveolar opacities in the lingula and lower lungs bilaterally are possibly pneumonias, but need to correlate clinically. Coronary artery calcifications are noted. There is no aortic dissection. 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 Transthoracic echocardiogram: LV cavity size mildly reduced with wall thickness mildly increased, systolic function normal with EF 65% to 70%, wall motion normal. There are no regional wall motion abnormalities. RV cavity size normal with systolic function normal. LA normal in size. Tricuspid valve with mild regurgitation. Pulmonary artery systolic pressure within the normal range. DISCHARGE PLAN: The patient will be discharged home to follow up with her primary care physician in outpatient and supervisor slate splitting for ongoing cardiac risk management. The only changes to her home medication was discontinuation of carvedilol and switching to metoprolol given her intermittently low blood pressures throughout the hospitalization. She should continue to eat a healthy diet, low in processed foods and resume activity as tolerated. She was referred for home physical therapy services. The patient was given written precautions, which include but are not limited to new symptoms of fevers, chills, or malaise. DISPOSITION: Home. CONDITION: Good. TIME SPENT: Approximately 60 minutes was spent on the discharge of this patient , more than half of which was spent on care coordination at bedside for interview and exam. [id number]/[facility] #: [id number] [facility]
== END 2019-08-15 14:10 | disposition home or self-care (01) ==
LOC: ED 03:09 → MEDTELE 08:31
PROVIDERS: ADMIT Internal Medicine; ATTEND Internal Medicine
DX: R07.9 Chest pain, unspecified (principal); I13.0 Hypertensive heart and chronic kidney disease with heart failure and stage 1 through stage 4 chronic kidney disease, or unspecified chronic kidney disease; N18.3 Chronic kidney disease, stage 3 (moderate); I50.30 Unspecified diastolic (congestive) heart failure; K21.9 Gastro-esophageal reflux disease without esophagitis; M51.36 Other intervertebral disc degeneration, lumbar region; G89.29 Other chronic pain; E66.9 Obesity, unspecified; G47.33 Obstructive sleep apnea (adult) (pediatric); M81.0 Age-related osteoporosis without current pathological fracture; R06.02 Shortness of breath; M41.9 Scoliosis, unspecified; Z79.899 Other long term (current) drug therapy; Z79.891 Long term (current) use of opiate analgesic; Z98.84 Bariatric surgery status; Z88.6 Allergy status to analgesic agent
CPT/HCPCS: 36415; 71275; 74174; 80053; 80061; 82607; 83036; 83605; 84484; 85025; 93005; 93306; 96372; 96374; 99284; A9270-GY; G0378; J1650; J2270; Q9967

== ENCOUNTER 2019-11-28 07:55 | Inpatient (IN) ==
[2019-11-28 08:58] LABS: ABS Lymphocytes 0.6 10^3/ul (1.0-4.8); ABS Monocytes 0.6 10^3/ul (0-0.8); Eosinophil % 0.9 %; Hematocrit 37 % (35-47); Hemoglobin 11.9 g/dL (12.0-16.0); Lymphocyte % 11.6 %; Mean Corpuscular HGB Conc 33 g/dL (31-36); Mean Corpuscular Hemoglobin 33 pg (27-31); Mean Corpuscular Volume 101 fL (80-97); Mean Platelet Volume 9.1 fL (7.4-10.4); Platelet Count 170 10^3/uL (150-450); Red Blood Count 3.63 10^6 /uL (3.70-4.87); Red Cell Distribution Width 15 % (10-15)
[2019-11-28 09:06] LABS: Activated Partial Thrombo Time 27.5 seconds (26.0-38.0); INR 1.13 (0.82-1.09)
[2019-11-28 09:12] LABS: ALT 24 U/L (7-52); AST 26 U/L (13-39); Albumin 3.3 g/dL (3.2-5.2); Albumin/Globulin Ratio 1.2 (1-3); Alkaline Phosphatase 153 U/L (34-104); Anion Gap 10 mmol/L (2-11); BUN/Creatinine Ratio 20.6 (8-20); Blood Urea Nitrogen 45 mg/dL (6-24); CO2 Carbon Dioxide 27 mmol/L (22-32); Calcium 8.8 mg/dL (8.6-10.3); Chloride 104 mmol/L (101-111); EGFR African American 26.8 (>60); EGFR Non-African American 22.2 (>60); Globulin 2.7 g/dL (2-4); Glucose 82 mg/dL (70-100); Sodium 141 mmol/L (135-145)
[2019-11-28 09:14] LABS: Troponin I 0.01 ng/mL (<0.03)
[2019-11-28] MEDS ORDERED: Potassium Chlor 20 meq TAB.ER PO ONE (09:14)
[2019-11-28] MEDS ORDERED: NS 0.9% 1000 ml BAG 1,000 ML IV ONE (09:14)
[2019-11-28 10:16] LABS: Urine Appearance Turbid; Urine Bilirubin Negative (Negative); Urine Blood 2+ (Negative); Urine Color Yellow; Urine Glucose Negative (Negative); Urine Ketones Negative (Negative); Urine Nitrite Negative (Negative); Urine Protein 2+(100 mg/dL) (Negative); Urine Specific Gravity 1.012 (1.010-1.030); Urine Urobilinogen Negative (Negative)
[2019-11-28 10:20] LABS: Urine Bacteria Absent (Absent); Urine Red Blood Cell 2+(6-10/hpf) (Absent); Urine White Blood Cell 3+(>20/hpf) (Absent)
[2019-11-28] MEDS ORDERED: cefTRIAXone 1 gm/50 mL NS BAG 1 GM/50 ML BAG IV ONE (11:00)
[2019-11-28 13:17] LABS: Folate > 20.00 ng/mL (>3.99)
[2019-11-28] MEDS: fentaNYL PATCH 12 MCG/HR 1 PATCH TRANSDERM SCH (15:31)
[2019-11-28] MEDS: fentaNYL PATCH 25 MCG/HR 1 PATCH TRANSDERM SCH (15:34)
[2019-11-28 17:05] LABS: BUN/Creatinine Ratio 20.7 (8-20); C Reactive Protein 43.55 mg/L (<8.01); Calcium 8.4 mg/dL (8.6-10.3); EGFR Non-African American 24.8 (>60); Potassium 3.9 mmol/L (3.5-5.0)
[2019-11-28] MEDS: Enoxaparin 30 MG/0.3 ML SYR(*) SUBCUT SCH (17:53)
[2019-11-28] MEDS: fentaNYL Patch Check Q Shift NOTE FOLLOW UP SCH (21:36)
[2019-11-29] MEDS: fentaNYL Patch Check Q Shift NOTE FOLLOW UP SCH ×2 (07:00→19:18)
[2019-11-29 07:09] LABS: Calcium 8.2 mg/dL (8.6-10.3); EGFR African American 37.5 (>60); Magnesium 1.7 mg/dL (1.9-2.7); Potassium 3.8 mmol/L (3.5-5.0)
[2019-11-29] MEDS ORDERED: Potassium Chlor 20 meq TAB.ER PO ONE ×2 (08:39→19:28)
[2019-11-29] MEDS ORDERED: Magnesium Sulfate IV 1GM/100ML 1 GM/100 ML BAG IV ONE (08:40)
[2019-11-29] MEDS: CMC:Solifenacin 5 mg TAB (NF) PO SCH (11:46)
[2019-11-29] MEDS: cefTRIAXone 1 gm/50 mL NS BAG 1 GM/50 ML BAG IVPB SCH (12:36)
[2019-11-29] MEDS: Enoxaparin 30 MG/0.3 ML SYR(*) SUBCUT SCH (14:09)
[2019-11-29] MEDS ORDERED: Ondansetron 4 mg VIAL 2 MG/ML 2 ml VIAL IV PRN (18:39)
[2019-11-30] MEDS: fentaNYL Patch Check Q Shift NOTE FOLLOW UP SCH ×2 (06:42→19:22)
[2019-11-30 07:03] LABS: Calcium 8.1 mg/dL (8.6-10.3); EGFR African American 48.7 (>60); EGFR Non-African American 40.3 (>60); Magnesium 1.9 mg/dL (1.9-2.7)
[2019-11-30] MEDS: CMC:Solifenacin 5 mg TAB (NF) PO SCH (08:28)
[2019-11-30] MEDS ORDERED: Furosemide 20 mg/2 ml IV VIAL IV SLOW PU ONE (10:17)
[2019-11-30 11:03] LABS: TSH (Thyroid Stimulating Horm) 0.87 mcIU/mL (0.34-5.60)
[2019-11-30] MEDS: Lidocaine PATCH 5% PATCH TRANSDERM SCH (11:57)
[2019-11-30] MEDS: Enoxaparin 30 MG/0.3 ML SYR(*) SUBCUT SCH (13:42)
[2019-11-30] MEDS: cefTRIAXone 1 gm/50 mL NS BAG 1 GM/50 ML BAG IVPB SCH (13:42)
[2019-11-30] MEDS ORDERED: Lidocaine Patch REMOVE PATCH PATCH OFF SCH (21:00)
[2019-12-01 06:18] LABS: ABS Eosinophils 0.1 10^3/ul (0-0.6); ABS Lymphocytes 0.9 10^3/ul (1.0-4.8); ABS Monocytes 0.5 10^3/ul (0-0.8); Eosinophil % 2.8 %; Hematocrit 32 % (35-47); Hemoglobin 10.6 g/dL (12.0-16.0); Lymphocyte % 20.2 %; Mean Corpuscular HGB Conc 33 g/dL (31-36); Mean Corpuscular Hemoglobin 33 pg (27-31); Mean Corpuscular Volume 99 fL (80-97); Nucleated Red Blood Cells % 0.1; Platelet Count 175 10^3/uL (150-450); Red Blood Count 3.23 10^6 /uL (3.70-4.87); Red Cell Distribution Width 15 % (10-15); White Blood Count 4.2 10^3/uL (3.5-10.8)
[2019-12-01 06:24] LABS: BUN/Creatinine Ratio 20.2 (8-20); Calcium 8.2 mg/dL (8.6-10.3); EGFR African American 49.2 (>60); EGFR Non-African American 40.6 (>60); Magnesium 1.8 mg/dL (1.9-2.7)
[2019-12-01] MEDS ORDERED: Magnesium Sulfate 2 gm BAG 2 GM/50 ML BAG IVPB ONE ×2 (07:09→09:45)
[2019-12-01] MEDS: fentaNYL Patch Check Q Shift NOTE FOLLOW UP SCH (07:13)
[2019-12-01] MEDS: Lidocaine PATCH 5% PATCH TRANSDERM SCH (08:50)
[2019-12-01] MEDS: CMC:Solifenacin 5 mg TAB (NF) PO SCH (13:31)
[2019-12-01] MEDS: cefTRIAXone 1 gm/50 mL NS BAG 1 GM/50 ML BAG IVPB SCH (13:41)
[2019-12-01] MEDS: Enoxaparin 30 MG/0.3 ML SYR(*) SUBCUT SCH (13:42)
[2019-12-01] MEDS: fentaNYL PATCH 12 MCG/HR 1 PATCH TRANSDERM SCH (15:14)
[2019-12-01] MEDS: fentaNYL PATCH 25 MCG/HR 1 PATCH TRANSDERM SCH (15:15)
[2019-12-01 17:56] VITALS: BP 104/60
== END 2019-12-01 18:00 | disposition home health service (06) | DRG 690 ==
LOC: ED 07:55 → MED 13:04
PROVIDERS: ADMIT Internal Medicine; ATTEND Internal Medicine

== ENCOUNTER 2020-05-02 16:18 | Inpatient (IN) ==
[2020-05-02 16:58] LABS: ABS Eosinophils 0.1 10^3/ul (0-0.6); ABS Monocytes 0.7 10^3/ul (0-0.8); ABS Neutrophils 2.4 10^3/ul (1.5-7.7); Eosinophil % 3.3 %; Hematocrit 33 % (35-47); Hemoglobin 10.5 g/dL (12.0-16.0); Lymphocyte % 22.6 %; Mean Corpuscular HGB Conc 32 g/dL (31-36); Mean Corpuscular Hemoglobin 30 pg (27-31); Mean Corpuscular Volume 95 fL (80-97); Mean Platelet Volume 8.8 fL (7.4-10.4); Nucleated Red Blood Cells % 0.1; Platelet Count 196 10^3/uL (150-450); Red Blood Count 3.51 10^6 /uL (3.70-4.87); Red Cell Distribution Width 21 % (10-15); White Blood Count 4.3 10^3/uL (3.5-10.8)
[2020-05-02 17:25] LABS: Albumin 3.3 g/dL (3.2-5.2); Albumin/Globulin Ratio 1.2 (1-3); BUN/Creatinine Ratio 16.7 (8-20); Calcium 8.6 mg/dL (8.6-10.3); EGFR African American 24.1 (>60); EGFR Non-African American 19.9 (>60); Globulin 2.7 g/dL (2-4); Potassium 4.5 mmol/L (3.5-5.0); Total Bilirubin 0.3 mg/dL (0.2-1.0)
[2020-05-02 17:30] LABS: Activated Partial Thrombo Time 32.1 seconds (26.0-38.0); INR 1.07 (0.82-1.09)
[2020-05-02 17:35] LABS: TSH Ultra Thyroid Stim Horm 3.96 mcIU/mL (0.34-5.60)
[2020-05-02] MEDS ORDERED: Furosemide 40 mg/4 ml IV VIAL IV ONE (17:36)
[2020-05-02 18:21] LABS: Urine Appearance Cloudy; Urine Bilirubin Negative (Negative); Urine Blood Negative (Negative); Urine Color Yellow; Urine Glucose Negative (Negative); Urine Ketones Negative (Negative); Urine Nitrite Negative (Negative); Urine Protein 1+(30 mg/dL) (Negative); Urine Specific Gravity 1.012 (1.010-1.030); Urine Urobilinogen Negative (Negative)
[2020-05-02 18:25] LABS: Urine Bacteria 1+ (Absent); Urine Red Blood Cell 1+(3-5/hpf) (Absent); Urine Squamous Epithelial Cell Present (Absent); Urine White Blood Cell 3+(>20/hpf) (Absent)
[2020-05-02] MEDS ORDERED: cefTRIAXone 1 gm/50 mL NS BAG 1 GM/50 ML BAG IV ONE (18:34)
[2020-05-02] MEDS ORDERED: NS 0.9% 1000 ml BAG 1,000 ML IV ONE (18:35)
[2020-05-02] MEDS ORDERED: NS 0.9% 1000 ml BAG 1,000 ML IV SCH (19:45)
[2020-05-02] MEDS ORDERED: fentaNYL PATCH 25 MCG/HR 1 PATCH TRANSDERM SCH (22:00)
[2020-05-02] MEDS: fentaNYL PATCH 12 MCG/HR 1 PATCH TRANSDERM SCH (23:35)
[2020-05-02] MEDS: fentaNYL PATCH 25 MCG/HR 1 PATCH TRANSDERM SCH (23:35)
[2020-05-02] MEDS: Heparin 5000 UNITS/ML 1 mL VIAL SUBCUT SCH (23:40)
[2020-05-03] MEDS: Heparin 5000 UNITS/ML 1 mL VIAL SUBCUT SCH ×3 (05:08→19:59)
[2020-05-03 06:53] LABS: ABS Eosinophils 0.1 10^3/ul (0-0.6); ABS Lymphocytes 0.8 10^3/ul (1.0-4.8); ABS Monocytes 0.5 10^3/ul (0-0.8); ABS Neutrophils 2.5 10^3/ul (1.5-7.7); Hematocrit 32 % (35-47); Hemoglobin 9.9 g/dL (12.0-16.0); Lymphocyte % 20.9 %; Mean Corpuscular HGB Conc 31 g/dL (31-36); Mean Corpuscular Hemoglobin 30 pg (27-31); Mean Corpuscular Volume 95 fL (80-97); Mean Platelet Volume 8.8 fL (7.4-10.4); Nucleated Red Blood Cells % 0.1; Platelet Count 193 10^3/uL (150-450); Red Blood Count 3.32 10^6 /uL (3.70-4.87); Red Cell Distribution Width 21 % (10-15)
[2020-05-03] MEDS: fentaNYL Patch Check Q Shift NOTE FOLLOW UP SCH ×2 (06:57→18:58)
[2020-05-03 07:02] LABS: INR 1.09 (0.82-1.09)
[2020-05-03 07:11] LABS: BUN/Creatinine Ratio 17.8 (8-20); Calcium 7.9 mg/dL (8.6-10.3); EGFR African American 26.7 (>60); EGFR Non-African American 22.1 (>60)
[2020-05-03] MEDS: Vitamin THERAPEUTIC TAB PO SCH (08:22)
[2020-05-03] MEDS: CMCS: Solifenacin 5 mg TAB (NF) PO SCH (08:22)
[2020-05-03] MEDS: NFT: Mirabegron 50 mg ER TAB (NF) PO SCH (08:24)
[2020-05-03] MEDS: DULoxetine DR 20 mg CAP PO SCH (08:24)
[2020-05-03] MEDS ORDERED: cefTRIAXone 1 gm/50 mL NS BAG 1 GM/50 ML BAG IVPB SCH (20:00)
[2020-05-04] MEDS: Heparin 5000 UNITS/ML 1 mL VIAL SUBCUT SCH (05:33)
[2020-05-04 05:43] LABS: BUN/Creatinine Ratio 17.3 (8-20); Calcium 8.1 mg/dL (8.6-10.3); EGFR African American 30.3 (>60); EGFR Non-African American 25.1 (>60); Potassium 4.2 mmol/L (3.5-5.0)
[2020-05-04] MEDS: fentaNYL Patch Check Q Shift NOTE FOLLOW UP SCH ×2 (07:01→19:02)
[2020-05-04] MEDS: NFT: Mirabegron 50 mg ER TAB (NF) PO SCH (09:21)
[2020-05-04] MEDS: CMCS: Solifenacin 5 mg TAB (NF) PO SCH (09:22)
[2020-05-04] MEDS: Vitamin THERAPEUTIC TAB PO SCH (09:22)
[2020-05-04] MEDS: DULoxetine DR 20 mg CAP PO SCH (09:23)
[2020-05-04] MEDS ORDERED: Enoxaparin 40 MG/0.4 ML SYR SUBCUT SCH (21:00)
[2020-05-04] MEDS: Enoxaparin 30 MG/0.3 ML SYR SUBCUT SCH (21:38)
[2020-05-04] MEDS: Senna TAB 8.6 mg TAB PO PRN (21:39)
[2020-05-05 06:09] LABS: BUN/Creatinine Ratio 18.3 (8-20); Calcium 8.7 mg/dL (8.6-10.3); EGFR African American 37.3 (>60); EGFR Non-African American 30.8 (>60); Magnesium 1.8 mg/dL (1.9-2.7); Potassium 4.5 mmol/L (3.5-5.0)
[2020-05-05] MEDS: fentaNYL Patch Check Q Shift NOTE FOLLOW UP SCH ×2 (07:06→18:55)
[2020-05-05] MEDS: Ondansetron 4 mg VIAL 2 MG/ML 2 ml VIAL IV PRN (08:56)
[2020-05-05] MEDS: Senna TAB 8.6 mg TAB PO PRN (09:09)
[2020-05-05] MEDS: Vitamin THERAPEUTIC TAB PO SCH (09:09)
[2020-05-05] MEDS: DULoxetine DR 20 mg CAP PO SCH (09:10)
[2020-05-05] MEDS: CMCS: Solifenacin 5 mg TAB (NF) PO SCH (09:11)
[2020-05-05] MEDS: NFT: Mirabegron 50 mg ER TAB (NF) PO SCH (09:12)
[2020-05-05] MEDS ORDERED: Magnesium Sulfate IV 1GM/100ML 1 GM/100 ML BAG IV ONE (12:32)
[2020-05-05] MEDS ORDERED: Metoclopramide 5 MG/ML VIAL (10 mg) IV SLOW PU ONE (12:50)
[2020-05-05] MEDS: Magnesium Hydroxide LIQ 30 ML UDC PO PRN (13:23)
[2020-05-05] MEDS ORDERED: Al Hydrox/Mg Hydrox/Simet LIQ 30 ML UDC PO PRN (15:46)
[2020-05-05] MEDS ORDERED: Glycerin ADULT 2.4 gm SUPP PR ONE (17:19)
[2020-05-05] MEDS: Enoxaparin 30 MG/0.3 ML SYR SUBCUT SCH (22:41)
[2020-05-05] MEDS: fentaNYL PATCH 25 MCG/HR 1 PATCH TRANSDERM SCH (23:06)
[2020-05-05] MEDS: fentaNYL PATCH 12 MCG/HR 1 PATCH TRANSDERM SCH (23:06)
[2020-05-06 06:21] LABS: BUN/Creatinine Ratio 21.5 (8-20); Calcium 9.2 mg/dL (8.6-10.3); EGFR African American 43.3 (>60); EGFR Non-African American 35.8 (>60); Magnesium 2.1 mg/dL (1.9-2.7); Potassium 4.8 mmol/L (3.5-5.0)
[2020-05-06] MEDS: fentaNYL Patch Check Q Shift NOTE FOLLOW UP SCH ×2 (06:43→19:24)
[2020-05-06] MEDS: DULoxetine DR 20 mg CAP PO SCH (08:31)
[2020-05-06] MEDS: Vitamin THERAPEUTIC TAB PO SCH (08:31)
[2020-05-06] MEDS: Magnesium Hydroxide LIQ 30 ML UDC PO PRN (08:32)
[2020-05-06] MEDS: NFT: Mirabegron 50 mg ER TAB (NF) PO SCH (08:33)
[2020-05-06] MEDS: CMCS: Solifenacin 5 mg TAB (NF) PO SCH (08:37)
[2020-05-06] MEDS: Ondansetron 4 mg VIAL 2 MG/ML 2 ml VIAL IV PRN (08:38)
[2020-05-06] MEDS: Senna TAB 8.6 mg TAB PO PRN (20:46)
[2020-05-06] MEDS: Enoxaparin 40 MG/0.4 ML SYR SUBCUT SCH (20:48)
[2020-05-07] MEDS: fentaNYL Patch Check Q Shift NOTE FOLLOW UP SCH ×2 (07:41→19:11)
[2020-05-07] MEDS: DULoxetine DR 20 mg CAP PO SCH (09:55)
[2020-05-07] MEDS: Vitamin THERAPEUTIC TAB PO SCH (09:59)
[2020-05-07] MEDS: NFT: Mirabegron 50 mg ER TAB (NF) PO SCH (10:01)
[2020-05-07] MEDS: CMCS: Solifenacin 5 mg TAB (NF) PO SCH (10:01)
[2020-05-07] MEDS ORDERED: Gadoteridol (CONTRAST) 279.3 MG/ML 10 ML IV ONE (14:09)
[2020-05-07] MEDS: Enoxaparin 40 MG/0.4 ML SYR SUBCUT SCH (20:41)
[2020-05-08] MEDS: fentaNYL Patch Check Q Shift NOTE FOLLOW UP SCH ×2 (07:03→18:56)
[2020-05-08] MEDS: DULoxetine DR 20 mg CAP PO SCH (10:23)
[2020-05-08] MEDS: Vitamin THERAPEUTIC TAB PO SCH (10:24)
[2020-05-08] MEDS: CMCS: Solifenacin 5 mg TAB (NF) PO SCH (10:25)
[2020-05-08] MEDS: NFT: Mirabegron 50 mg ER TAB (NF) PO SCH (10:26)
[2020-05-08] MEDS: fentaNYL PATCH 12 MCG/HR 1 PATCH TRANSDERM SCH (21:07)
[2020-05-08] MEDS: fentaNYL PATCH 25 MCG/HR 1 PATCH TRANSDERM SCH (21:09)
[2020-05-08] MEDS: Enoxaparin 40 MG/0.4 ML SYR SUBCUT SCH (21:14)
[2020-05-09] MEDS: fentaNYL Patch Check Q Shift NOTE FOLLOW UP SCH ×2 (07:19→18:31)
[2020-05-09] MEDS: CMCS: Solifenacin 5 mg TAB (NF) PO SCH (09:07)
[2020-05-09] MEDS: DULoxetine DR 20 mg CAP PO SCH (09:07)
[2020-05-09] MEDS: Vitamin THERAPEUTIC TAB PO SCH (09:08)
[2020-05-09] MEDS: Senna TAB 8.6 mg TAB PO PRN (20:27)
[2020-05-09] MEDS: Silver Sulfadiazine 1% 20 gm TUBE TOPICAL SCH (20:27)
[2020-05-09] MEDS: Enoxaparin 40 MG/0.4 ML SYR SUBCUT SCH (20:28)
[2020-05-09] MEDS ORDERED: Lidocaine Patch REMOVE PATCH PATCH OFF SCH (21:00)
[2020-05-10] MEDS: fentaNYL Patch Check Q Shift NOTE FOLLOW UP SCH (07:05)
[2020-05-10 07:16] LABS: Mean Platelet Volume 8.7 fL (7.4-10.4); Platelet Count 164 10^3/uL (150-450)
[2020-05-10] MEDS: DULoxetine DR 20 mg CAP PO SCH (07:50)
[2020-05-10] MEDS: Vitamin THERAPEUTIC TAB PO SCH (07:50)
[2020-05-10] MEDS: CMCS: Solifenacin 5 mg TAB (NF) PO SCH (07:51)
[2020-05-10] MEDS: Silver Sulfadiazine 1% 20 gm TUBE TOPICAL SCH (07:52)
[2020-05-10] MEDS: Magnesium Hydroxide LIQ 30 ML UDC PO PRN (07:57)
[2020-05-10] MEDS: Senna TAB 8.6 mg TAB PO PRN (07:57)
[2020-05-10] MEDS ORDERED: Lidocaine PATCH 5% PATCH TRANSDERM SCH (09:00)
[2020-05-10 10:54] VITALS: BP 119/80
== END 2020-05-10 12:09 | DRG 71 ==
LOC: ED 16:18 → MEDTELE 19:41
PROVIDERS: ADMIT Student in an Organized Health Care Education/Training Program; ATTEND Student in an Organized Health Care Education/Training Program

== ENCOUNTER 2020-06-01 14:48 | Inpatient (IN) ==
[2020-06-01] MEDS ORDERED: NS 0.9% 1000 ml BAG 1,000 ML IV ONE (15:17)
[2020-06-01 15:57] LABS: Activated Partial Thrombo Time 27.4 seconds (26.0-38.0); INR 1.2 (0.82-1.09)
[2020-06-01 16:02] LABS: Hematocrit 32 % (35-47); Hemoglobin 10.2 g/dL (12.0-16.0); Mean Corpuscular HGB Conc 32 g/dL (31-36); Mean Corpuscular Hemoglobin 30 pg (27-31); Mean Corpuscular Volume 95 fL (80-97); Red Blood Count 3.39 10^6 /uL (3.70-4.87); Red Cell Distribution Width 15 % (10-15)
[2020-06-01 16:06] LABS: ALT 16 U/L (7-52); Albumin 3.4 g/dL (3.2-5.2); Albumin/Globulin Ratio 1.3 (1-3); Alkaline Phosphatase 119 U/L (34-104); BUN/Creatinine Ratio 23.1 (8-20); Blood Urea Nitrogen 40 mg/dL (6-24); C Reactive Protein 10.47 mg/L (<8.01); CO2 Carbon Dioxide 23 mmol/L (22-32); Calcium 8.4 mg/dL (8.6-10.3); EGFR African American 34.9 (>60); EGFR Non-African American 28.9 (>60); Globulin 2.7 g/dL (2-4); Glucose 95 mg/dL (70-100); Sodium 142 mmol/L (135-145); Total Protein 6.1 g/dL (6.4-8.9)
[2020-06-01 16:13] LABS: Ammonia 28 mcmol/L (16-53)
[2020-06-01 16:27] LABS: Chloride 112 mmol/L (101-111)
[2020-06-01 16:28] LABS: Troponin I 0.03 ng/mL (<0.03)
[2020-06-01] MEDS ORDERED: cefTRIAXone 1 gm/50 mL NS BAG 1 GM/50 ML BAG IV ONE (16:28)
[2020-06-01 16:35] LABS: LDH 140 U/L (140-271)
[2020-06-01 16:45] LABS: Platelet Count Platelets clumped. 10^3/uL (150-450)
[2020-06-01 16:47] LABS: White Blood Count 4.9 10^3/uL (3.5-10.8)
[2020-06-01 16:49] LABS: ABS Eosinophils 0.1 10^3/ul (0-0.6); ABS Lymphocytes 0.7 10^3/ul (1.0-4.8); ABS Monocytes 0.8 10^3/ul (0-0.8); ABS Neutrophils 3.3 10^3/ul (1.5-7.7); Eosinophil % 1.1 %; Lymphocyte % 14.3 %
[2020-06-01 16:52] LABS: Ferritin 66.7 ng/mL (11-307)
[2020-06-01] MEDS ORDERED: Ondansetron 4 mg VIAL 2 MG/ML 2 ml VIAL IV PRN (17:12)
[2020-06-01 17:17] LABS: Urine Appearance Cloudy; Urine Bilirubin Negative (Negative); Urine Blood 2+ (Negative); Urine Color Yellow; Urine Glucose Negative (Negative); Urine Ketones Negative (Negative); Urine Nitrite Negative (Negative); Urine Protein 1+(30 mg/dL) (Negative); Urine Specific Gravity 1.009 (1.010-1.030); Urine Urobilinogen Negative (Negative)
[2020-06-01] MEDS ORDERED: Senna TAB 8.6 mg TAB PO PRN (17:19)
[2020-06-01 17:22] LABS: Urine Bacteria 1+ (Absent); Urine Red Blood Cell Trace(0-2/hpf) (Absent); Urine Squamous Epithelial Cell Present (Absent); Urine White Blood Cell 2+(11-20/hpf) (Absent)
[2020-06-01 17:24] LABS: BNP 561 pg/mL (<=100)
[2020-06-01 17:48] LABS: Influenza A Molecular Negative (Negative); Influenza B Molecular Negative (Negative)
[2020-06-01 17:50] LABS: Anion Gap 7 mmol/L (2-11); Potassium 4.6 mmol/L (3.5-5.0)
[2020-06-01 17:57] LABS: AST 23 U/L (13-39)
[2020-06-01] MEDS ORDERED: DOXYcycline 100 MG in NS 0.9% 250 ml 250 ML IVPB SCH (18:00)
[2020-06-01 18:25] LABS: Platelet Count, Citrated 124 10^3/ul (150-450)
[2020-06-01 18:37] LABS: Troponin I 0.04 ng/mL (<0.03)
[2020-06-01] MEDS ORDERED: Remdesivir 5 MG/ML LIQ IV Vial 200 MG in NS 0.9% 250 ml 210 ML IV ONE (21:00)
[2020-06-01] MEDS: Enoxaparin 30 MG/0.3 ML SYR SUBCUT SCH (22:59)
[2020-06-01] MEDS: Lidocaine Patch REMOVE PATCH PATCH OFF SCH (23:06)
[2020-06-01] MEDS: fentaNYL PATCH 12 MCG/HR 1 PATCH TRANSDERM SCH (23:07)
[2020-06-01] MEDS: fentaNYL PATCH 25 MCG/HR 1 PATCH TRANSDERM SCH (23:07)
[2020-06-02 06:08] LABS: ABS Lymphocytes 0.6 10^3/ul (1.0-4.8); ABS Monocytes 0.2 10^3/ul (0-0.8); ABS Neutrophils 1.8 10^3/ul (1.5-7.7); Hematocrit 35 % (35-47); Hemoglobin 10.9 g/dL (12.0-16.0); Mean Corpuscular HGB Conc 31 g/dL (31-36); Mean Corpuscular Hemoglobin 30 pg (27-31); Mean Corpuscular Volume 96 fL (80-97); Mean Platelet Volume 9.4 fL (7.4-10.4); Nucleated Red Blood Cells % 0.1; Platelet Count 141 10^3/uL (150-450); Red Blood Count 3.65 10^6 /uL (3.70-4.87); Red Cell Distribution Width 16 % (10-15); White Blood Count 2.6 10^3/uL (3.5-10.8)
[2020-06-02 06:30] LABS: ALT 19 U/L (7-52); AST 34 U/L (13-39); Albumin/Globulin Ratio 1.1 (1-3); Alkaline Phosphatase 127 U/L (34-104); BUN/Creatinine Ratio 21.8 (8-20); Blood Urea Nitrogen 36 mg/dL (6-24); CO2 Carbon Dioxide 26 mmol/L (22-32); Calcium 8.7 mg/dL (8.6-10.3); EGFR African American 36.9 (>60); EGFR Non-African American 30.5 (>60); Globulin 2.8 g/dL (2-4); Glucose 98 mg/dL (70-100); Sodium 145 mmol/L (135-145); Total Protein 5.8 g/dL (6.4-8.9)
[2020-06-02 06:46] LABS: Anion Gap 7 mmol/L (2-11); Chloride 112 mmol/L (101-111); Potassium 5.7 mmol/L (3.5-5.0)
[2020-06-02] MEDS: fentaNYL Patch Check Q Shift NOTE FOLLOW UP SCH ×2 (07:16→19:51)
[2020-06-02 08:43] LABS: Troponin I 0.05 ng/mL (<0.03)
[2020-06-02] MEDS: DULoxetine DR 20 mg CAP PO SCH (10:43)
[2020-06-02] MEDS: CMC:Solifenacin 5 mg TAB (NF) PO SCH ×2 (13:21→13:44)
[2020-06-02] MEDS: NF:Mirabegron 50 mg ER TAB (NF) PO SCH (13:35)
[2020-06-02 14:37] LABS: Troponin I 0.03 ng/mL (<0.03)
[2020-06-02 15:41] LABS: Anion Gap 12 mmol/L (2-11); CO2 Carbon Dioxide 18 mmol/L (22-32); Calcium 8.5 mg/dL (8.6-10.3); Chloride 114 mmol/L (101-111); Potassium 5.2 mmol/L (3.5-5.0); Sodium 144 mmol/L (135-145)
[2020-06-02 15:47] LABS: BUN/Creatinine Ratio 24.2 (8-20); Blood Urea Nitrogen 37 mg/dL (6-24); EGFR African American 40.3 (>60); EGFR Non-African American 33.3 (>60); Glucose 116 mg/dL (70-100)
[2020-06-02] MEDS ORDERED: cefTRIAXone 1 gm/50 mL NS BAG 1 GM/50 ML BAG IVPB SCH (16:00)
[2020-06-02] MEDS: Enoxaparin 30 MG/0.3 ML SYR SUBCUT SCH (17:45)
[2020-06-02] MEDS: Lidocaine Patch REMOVE PATCH PATCH OFF SCH (21:25)
[2020-06-02] MEDS: Remdesivir 5 MG/ML LIQ IV Vial 100 MG in NS 0.9% 250 ml 230 ML IV SCH (22:39)
[2020-06-03 06:39] LABS: ABS Lymphocytes 0.6 10^3/ul (1.0-4.8); ABS Monocytes 0.5 10^3/ul (0-0.8); ABS Neutrophils 1.8 10^3/ul (1.5-7.7); Hematocrit 31 % (35-47); Hemoglobin 9.8 g/dL (12.0-16.0); Lymphocyte % 21.2 %; Mean Corpuscular HGB Conc 32 g/dL (31-36); Mean Corpuscular Hemoglobin 30 pg (27-31); Mean Corpuscular Volume 95 fL (80-97); Mean Platelet Volume 9.3 fL (7.4-10.4); Nucleated Red Blood Cells % 0.1; Platelet Count 122 10^3/uL (150-450); Red Blood Count 3.28 10^6 /uL (3.70-4.87); Red Cell Distribution Width 16 % (10-15); White Blood Count 2.9 10^3/uL (3.5-10.8)
[2020-06-03 06:58] LABS: Albumin 2.6 g/dL (3.2-5.2); Calcium 7.9 mg/dL (8.6-10.3); Indirect Bilirubin 0.1 mg/dL (0.3-1.0); Magnesium 1.9 mg/dL (1.9-2.7); Total Bilirubin 0.2 mg/dL (0.2-1.0)
[2020-06-03 07:04] LABS: Albumin/Globulin Ratio 1.3 (1-3); BUN/Creatinine Ratio 24.7 (8-20); Total Protein 4.6 g/dL (6.4-8.9)
[2020-06-03] MEDS: fentaNYL Patch Check Q Shift NOTE FOLLOW UP SCH ×2 (07:08→19:06)
[2020-06-03] MEDS: CMC:Solifenacin 5 mg TAB (NF) PO SCH (10:43)
[2020-06-03] MEDS: DULoxetine DR 20 mg CAP PO SCH (10:44)
[2020-06-03] MEDS: Ampicillin ADVAN 1 GM in NS 0.9% 50 ML 50 ML IVPB SCH ×3 (10:46→22:52)
[2020-06-03] MEDS: NF:Mirabegron 50 mg ER TAB (NF) PO SCH (10:49)
[2020-06-03] MEDS: Enoxaparin 30 MG/0.3 ML SYR SUBCUT SCH (17:46)
[2020-06-03] MEDS: Lidocaine Patch REMOVE PATCH PATCH OFF SCH (20:40)
[2020-06-03] MEDS: Remdesivir 5 MG/ML LIQ IV Vial 100 MG in NS 0.9% 250 ml 230 ML IV SCH (23:03)
[2020-06-04] MEDS: Ampicillin ADVAN 1 GM in NS 0.9% 50 ML 50 ML IVPB SCH ×4 (05:07→23:51)
[2020-06-04] MEDS: Lidocaine PATCH 5% PATCH TRANSDERM PRN (07:02)
[2020-06-04] MEDS: fentaNYL Patch Check Q Shift NOTE FOLLOW UP SCH ×2 (07:02→18:54)
[2020-06-04] MEDS: DULoxetine DR 20 mg CAP PO SCH (09:02)
[2020-06-04] MEDS: CMC:Solifenacin 5 mg TAB (NF) PO SCH (09:03)
[2020-06-04] MEDS: NF:Mirabegron 50 mg ER TAB (NF) PO SCH (09:09)
[2020-06-04] MEDS: Enoxaparin 30 MG/0.3 ML SYR SUBCUT SCH (17:20)
[2020-06-04] MEDS: Lidocaine Patch REMOVE PATCH PATCH OFF SCH (20:50)
[2020-06-05] MEDS: Remdesivir 5 MG/ML LIQ IV Vial 100 MG in NS 0.9% 250 ml 230 ML IV SCH ×2 (00:07→23:23)
[2020-06-05] MEDS: fentaNYL PATCH 25 MCG/HR 1 PATCH TRANSDERM SCH (00:19)
[2020-06-05] MEDS: fentaNYL PATCH 12 MCG/HR 1 PATCH TRANSDERM SCH (00:20)
[2020-06-05] MEDS: Ampicillin ADVAN 1 GM in NS 0.9% 50 ML 50 ML IVPB SCH (05:14)
[2020-06-05 06:57] LABS: ABS Lymphocytes 1.1 10^3/ul (1.0-4.8); ABS Monocytes 0.4 10^3/ul (0-0.8); ABS Neutrophils 1.4 10^3/ul (1.5-7.7); Eosinophil % 0.1 %; Hematocrit 34 % (35-47); Hemoglobin 10.7 g/dL (12.0-16.0); Lymphocyte % 37.9 %; Mean Corpuscular HGB Conc 32 g/dL (31-36); Mean Corpuscular Hemoglobin 30 pg (27-31); Mean Corpuscular Volume 93 fL (80-97); Mean Platelet Volume 9.5 fL (7.4-10.4); Nucleated Red Blood Cells % 0.3; Platelet Count 125 10^3/uL (150-450); Red Blood Count 3.64 10^6 /uL (3.70-4.87); Red Cell Distribution Width 16 % (10-15); White Blood Count 2.9 10^3/uL (3.5-10.8)
[2020-06-05] MEDS: fentaNYL Patch Check Q Shift NOTE FOLLOW UP SCH ×2 (07:09→17:55)
[2020-06-05 07:20] LABS: Albumin 2.7 g/dL (3.2-5.2); Calcium 8.4 mg/dL (8.6-10.3); Globulin 2.6 g/dL (2-4); Magnesium 1.7 mg/dL (1.9-2.7); Potassium 4.9 mmol/L (3.5-5.0); Total Bilirubin 0.2 mg/dL (0.2-1.0); Total Protein 5.3 g/dL (6.4-8.9)
[2020-06-05] MEDS: CMC:Solifenacin 5 mg TAB (NF) PO SCH (08:07)
[2020-06-05] MEDS: DULoxetine DR 20 mg CAP PO SCH (08:09)
[2020-06-05] MEDS: NF:Mirabegron 50 mg ER TAB (NF) PO SCH (08:10)
[2020-06-05] MEDS: Enoxaparin 30 MG/0.3 ML SYR SUBCUT SCH (17:54)
[2020-06-05] MEDS: Amoxicillin/Clavul 875/125 TAB (Augmentin 875 tab) PO SCH (21:31)
[2020-06-05] MEDS: Lidocaine Patch REMOVE PATCH PATCH OFF SCH (22:10)
[2020-06-06] MEDS: fentaNYL Patch Check Q Shift NOTE FOLLOW UP SCH (07:42)
[2020-06-06] MEDS: CMC:Solifenacin 5 mg TAB (NF) PO SCH (08:32)
[2020-06-06] MEDS: Amoxicillin/Clavul 875/125 TAB (Augmentin 875 tab) PO SCH (08:32)
[2020-06-06] MEDS: DULoxetine DR 20 mg CAP PO SCH (08:33)
[2020-06-06] MEDS: NF:Mirabegron 50 mg ER TAB (NF) PO SCH (08:33)
[2020-06-06] MEDS: Lidocaine PATCH 5% PATCH TRANSDERM PRN (13:46)
[2020-06-06 13:51] VITALS: BP 124/68
== END 2020-06-06 15:20 | disposition swing bed (61) | DRG 177 ==
LOC: ED 14:48 → MED 14:48
PROVIDERS: ADMIT Internal Medicine; ATTEND Internal Medicine

== ENCOUNTER 2020-06-06 15:27 | Inpatient (IN) ==
[2020-06-06] MEDS ORDERED: Ondansetron 4 mg VIAL 2 MG/ML 2 ml VIAL IV PRN (15:54)
[2020-06-06] MEDS ORDERED: Senna TAB 8.6 mg TAB PO PRN (15:58)
[2020-06-06] MEDS ORDERED: Enoxaparin 30 MG/0.3 ML SYR SUBCUT SCH (16:00)
[2020-06-06] MEDS: Enoxaparin 30 MG/0.3 ML SYR SUBCUT SCH (17:33)
[2020-06-06] MEDS ORDERED: fentaNYL PATCH 25 MCG/HR 1 PATCH TRANSDERM SCH (18:00)
[2020-06-06] MEDS ORDERED: fentaNYL PATCH 12 MCG/HR 1 PATCH TRANSDERM SCH (18:00)
[2020-06-06] MEDS: fentaNYL Patch Check Q Shift NOTE FOLLOW UP SCH (19:41)
[2020-06-06] MEDS: Amoxicillin/Clavul 875/125 TAB (Augmentin 875 tab) PO SCH (20:03)
[2020-06-06] MEDS: Calcium/Vitamin D TAB 250/125 TAB PO SCH (20:04)
[2020-06-06] MEDS: Lidocaine Patch REMOVE PATCH PATCH OFF SCH (22:39)
[2020-06-07] MEDS: fentaNYL Patch Check Q Shift NOTE FOLLOW UP SCH ×2 (07:19→19:43)
[2020-06-07] MEDS: Calcium/Vitamin D TAB 250/125 TAB PO SCH ×2 (08:46→22:14)
[2020-06-07] MEDS: DULoxetine DR 20 mg CAP PO SCH (08:46)
[2020-06-07] MEDS: Amoxicillin/Clavul 875/125 TAB (Augmentin 875 tab) PO SCH ×2 (08:46→22:15)
[2020-06-07] MEDS: Mirabegron 50 mg ER TAB (NF) PO SCH (08:47)
[2020-06-07] MEDS: Lidocaine PATCH 5% PATCH TRANSDERM PRN (11:58)
[2020-06-07] MEDS: Enoxaparin 30 MG/0.3 ML SYR SUBCUT SCH (17:38)
[2020-06-07] MEDS: Lidocaine Patch REMOVE PATCH PATCH OFF SCH (22:19)
[2020-06-08] MEDS: fentaNYL Patch Check Q Shift NOTE FOLLOW UP SCH ×2 (07:10→19:15)
[2020-06-08] MEDS: Lidocaine PATCH 5% PATCH TRANSDERM PRN (09:09)
[2020-06-08] MEDS: Amoxicillin/Clavul 875/125 TAB (Augmentin 875 tab) PO SCH ×2 (09:12→20:38)
[2020-06-08] MEDS: Calcium/Vitamin D TAB 250/125 TAB PO SCH ×2 (09:12→20:32)
[2020-06-08] MEDS: DULoxetine DR 20 mg CAP PO SCH (09:13)
[2020-06-08] MEDS: Mirabegron 50 mg ER TAB (NF) PO SCH (09:14)
[2020-06-08] MEDS: Enoxaparin 30 MG/0.3 ML SYR SUBCUT SCH (17:08)
[2020-06-08] MEDS: Lidocaine Patch REMOVE PATCH PATCH OFF SCH (20:35)
[2020-06-08] MEDS: fentaNYL PATCH 12 MCG/HR 1 PATCH TRANSDERM SCH (22:33)
[2020-06-08] MEDS: fentaNYL PATCH 25 MCG/HR 1 PATCH TRANSDERM SCH (22:35)
[2020-06-09] MEDS: fentaNYL Patch Check Q Shift NOTE FOLLOW UP SCH ×2 (07:04→18:58)
[2020-06-09] MEDS: Lidocaine PATCH 5% PATCH TRANSDERM PRN (08:14)
[2020-06-09] MEDS: Calcium/Vitamin D TAB 250/125 TAB PO SCH ×2 (08:15→21:13)
[2020-06-09] MEDS: Amoxicillin/Clavul 875/125 TAB (Augmentin 875 tab) PO SCH ×2 (08:16→21:12)
[2020-06-09] MEDS: Mirabegron 50 mg ER TAB (NF) PO SCH (08:16)
[2020-06-09] MEDS: DULoxetine DR 20 mg CAP PO SCH (08:16)
[2020-06-09] MEDS: Enoxaparin 30 MG/0.3 ML SYR SUBCUT SCH (16:51)
[2020-06-09] MEDS: Lidocaine Patch REMOVE PATCH PATCH OFF SCH (21:15)
[2020-06-09] MEDS: fentaNYL PATCH 25 MCG/HR 1 PATCH TRANSDERM SCH (23:47)
[2020-06-09] MEDS: fentaNYL PATCH 12 MCG/HR 1 PATCH TRANSDERM SCH (23:54)
[2020-06-10] MEDS: fentaNYL Patch Check Q Shift NOTE FOLLOW UP SCH ×2 (07:00→19:30)
[2020-06-10] MEDS: Calcium/Vitamin D TAB 250/125 TAB PO SCH ×2 (09:17→21:48)
[2020-06-10] MEDS: Amoxicillin/Clavul 875/125 TAB (Augmentin 875 tab) PO SCH ×2 (09:18→21:48)
[2020-06-10] MEDS: DULoxetine DR 20 mg CAP PO SCH (09:18)
[2020-06-10] MEDS: Mirabegron 50 mg ER TAB (NF) PO SCH (09:20)
[2020-06-10] MEDS: Enoxaparin 30 MG/0.3 ML SYR SUBCUT SCH (16:59)
[2020-06-10] MEDS: Lidocaine Patch REMOVE PATCH PATCH OFF SCH (22:19)
[2020-06-11] MEDS: fentaNYL PATCH 12 MCG/HR 1 PATCH TRANSDERM SCH (00:58)
[2020-06-11] MEDS: fentaNYL PATCH 25 MCG/HR 1 PATCH TRANSDERM SCH (01:00)
[2020-06-11] MEDS: fentaNYL Patch Check Q Shift NOTE FOLLOW UP SCH ×2 (07:03→18:41)
[2020-06-11] MEDS: Calcium/Vitamin D TAB 250/125 TAB PO SCH ×2 (08:36→20:56)
[2020-06-11] MEDS: Mirabegron 50 mg ER TAB (NF) PO SCH (08:38)
[2020-06-11] MEDS: DULoxetine DR 20 mg CAP PO SCH (08:42)
[2020-06-11] MEDS: Enoxaparin 30 MG/0.3 ML SYR SUBCUT SCH (17:08)
[2020-06-11] MEDS: Lidocaine Patch REMOVE PATCH PATCH OFF SCH (21:05)
[2020-06-12] MEDS: fentaNYL Patch Check Q Shift NOTE FOLLOW UP SCH ×2 (06:32→18:53)
[2020-06-12] MEDS: Lidocaine PATCH 5% PATCH TRANSDERM PRN (07:23)
[2020-06-12] MEDS: Calcium/Vitamin D TAB 250/125 TAB PO SCH ×2 (07:26→21:14)
[2020-06-12] MEDS: DULoxetine DR 20 mg CAP PO SCH (07:27)
[2020-06-12] MEDS: Mirabegron 50 mg ER TAB (NF) PO SCH (07:30)
[2020-06-12] MEDS: Enoxaparin 30 MG/0.3 ML SYR SUBCUT SCH (17:48)
[2020-06-12] MEDS: Lidocaine Patch REMOVE PATCH PATCH OFF SCH (21:16)
[2020-06-13] MEDS: fentaNYL Patch Check Q Shift NOTE FOLLOW UP SCH ×2 (08:38→18:10)
[2020-06-13 08:39] LABS: Hematocrit 34 % (35-47); Hemoglobin 10.7 g/dL (12.0-16.0); Mean Platelet Volume 9.8 fL (7.4-10.4); Platelet Count 155 10^3/uL (150-450)
[2020-06-13 08:48] LABS: EGFR African American 29.7 (>60); EGFR Non-African American 24.6 (>60)
[2020-06-13] MEDS: DULoxetine DR 20 mg CAP PO SCH (10:54)
[2020-06-13] MEDS: Calcium/Vitamin D TAB 250/125 TAB PO SCH ×2 (10:54→20:47)
[2020-06-13] MEDS: Mirabegron 50 mg ER TAB (NF) PO SCH (10:55)
[2020-06-13] MEDS: Lidocaine PATCH 5% PATCH TRANSDERM PRN (11:01)
[2020-06-13] MEDS: Enoxaparin 30 MG/0.3 ML SYR SUBCUT SCH (17:23)
[2020-06-13] MEDS: Senna TAB 8.6 mg TAB PO PRN (20:48)
[2020-06-13] MEDS: Lidocaine Patch REMOVE PATCH PATCH OFF SCH (23:54)
[2020-06-14] MEDS: fentaNYL PATCH 25 MCG/HR 1 PATCH TRANSDERM SCH (03:48)
[2020-06-14] MEDS: fentaNYL PATCH 12 MCG/HR 1 PATCH TRANSDERM SCH (03:49)
[2020-06-14 06:53] LABS: Hematocrit 32 % (35-47); Hemoglobin 10.3 g/dL (12.0-16.0); Mean Corpuscular HGB Conc 32 g/dL (31-36); Mean Corpuscular Hemoglobin 30 pg (27-31); Mean Corpuscular Volume 94 fL (80-97); Mean Platelet Volume 9.8 fL (7.4-10.4); Platelet Count 151 10^3/uL (150-450); Red Blood Count 3.45 10^6 /uL (3.70-4.87); Red Cell Distribution Width 15 % (10-15); White Blood Count 4.2 10^3/uL (3.5-10.8)
[2020-06-14 07:11] LABS: BUN/Creatinine Ratio 36.2 (8-20); Calcium 8.3 mg/dL (8.6-10.3); EGFR African American 27.9 (>60); EGFR Non-African American 23.1 (>60); Potassium 4.1 mmol/L (3.5-5.0)
[2020-06-14] MEDS: fentaNYL Patch Check Q Shift NOTE FOLLOW UP SCH ×2 (07:15→18:41)
[2020-06-14 08:16] LABS: ABS Eosinophils 0.1 10^3/ul (0-0.6); ABS Lymphocytes 0.8 10^3/ul (1.0-4.8); ABS Monocytes 0.6 10^3/ul (0-0.8); ABS Neutrophils 2.8 10^3/ul (1.5-7.7); Eosinophil % 1.3 %
[2020-06-14] MEDS: Lidocaine PATCH 5% PATCH TRANSDERM PRN (09:21)
[2020-06-14] MEDS: DULoxetine DR 20 mg CAP PO SCH (09:30)
[2020-06-14] MEDS: Calcium/Vitamin D TAB 250/125 TAB PO SCH ×2 (09:30→20:10)
[2020-06-14] MEDS: Mirabegron 50 mg ER TAB (NF) PO SCH (09:34)
[2020-06-14] MEDS: Enoxaparin 30 MG/0.3 ML SYR SUBCUT SCH (18:41)
[2020-06-14] MEDS: Senna TAB 8.6 mg TAB PO PRN (20:10)
[2020-06-14] MEDS: Lidocaine Patch REMOVE PATCH PATCH OFF SCH (20:15)
[2020-06-15] MEDS: fentaNYL Patch Check Q Shift NOTE FOLLOW UP SCH ×2 (07:26→18:45)
[2020-06-15] MEDS: Calcium/Vitamin D TAB 250/125 TAB PO SCH ×2 (07:40→20:59)
[2020-06-15] MEDS: DULoxetine DR 20 mg CAP PO SCH (07:41)
[2020-06-15] MEDS: Mirabegron 50 mg ER TAB (NF) PO SCH (07:42)
[2020-06-15] MEDS: Enoxaparin 30 MG/0.3 ML SYR SUBCUT SCH (17:59)
[2020-06-15] MEDS: Lidocaine Patch REMOVE PATCH PATCH OFF SCH (20:30)
[2020-06-15] MEDS: Senna TAB 8.6 mg TAB PO PRN (21:01)
[2020-06-16] MEDS: fentaNYL Patch Check Q Shift NOTE FOLLOW UP SCH ×2 (07:20→19:20)
[2020-06-16] MEDS: DULoxetine DR 20 mg CAP PO SCH (08:03)
[2020-06-16] MEDS: Calcium/Vitamin D TAB 250/125 TAB PO SCH ×2 (08:07→20:11)
[2020-06-16] MEDS: Mirabegron 50 mg ER TAB (NF) PO SCH (08:20)
[2020-06-16] MEDS: Enoxaparin 30 MG/0.3 ML SYR SUBCUT SCH (18:23)
[2020-06-16] MEDS: Lidocaine Patch REMOVE PATCH PATCH OFF SCH (20:06)
[2020-06-17] MEDS: fentaNYL PATCH 12 MCG/HR 1 PATCH TRANSDERM SCH (00:22)
[2020-06-17] MEDS: fentaNYL PATCH 25 MCG/HR 1 PATCH TRANSDERM SCH (00:23)
[2020-06-17] MEDS: fentaNYL Patch Check Q Shift NOTE FOLLOW UP SCH ×2 (06:25→22:06)
[2020-06-17] MEDS: DULoxetine DR 20 mg CAP PO SCH (09:25)
[2020-06-17] MEDS: Calcium/Vitamin D TAB 250/125 TAB PO SCH ×2 (09:27→22:07)
[2020-06-17] MEDS: Mirabegron 50 mg ER TAB (NF) PO SCH (09:30)
[2020-06-17] MEDS: Enoxaparin 30 MG/0.3 ML SYR SUBCUT SCH (18:03)
[2020-06-17] MEDS: Lidocaine Patch REMOVE PATCH PATCH OFF SCH (22:08)
[2020-06-18 06:35] LABS: BUN/Creatinine Ratio 30.5 (8-20); EGFR African American 36.4 (>60); EGFR Non-African American 30.1 (>60); Potassium 3.9 mmol/L (3.5-5.0)
[2020-06-18] MEDS: fentaNYL Patch Check Q Shift NOTE FOLLOW UP SCH ×2 (07:32→18:41)
[2020-06-18] MEDS: DULoxetine DR 20 mg CAP PO SCH (10:55)
[2020-06-18] MEDS: Calcium/Vitamin D TAB 250/125 TAB PO SCH ×2 (10:57→22:05)
[2020-06-18] MEDS: Mirabegron 50 mg ER TAB (NF) PO SCH (10:58)
[2020-06-18] MEDS: Enoxaparin 30 MG/0.3 ML SYR SUBCUT SCH (18:41)
[2020-06-18] MEDS: Lidocaine Patch REMOVE PATCH PATCH OFF SCH (22:07)
[2020-06-19] MEDS: fentaNYL Patch Check Q Shift NOTE FOLLOW UP SCH ×2 (07:51→19:05)
[2020-06-19] MEDS: Calcium/Vitamin D TAB 250/125 TAB PO SCH ×2 (10:45→19:44)
[2020-06-19] MEDS: DULoxetine DR 20 mg CAP PO SCH (10:52)
[2020-06-19] MEDS: Mirabegron 50 mg ER TAB (NF) PO SCH (10:53)
[2020-06-19] MEDS: Enoxaparin 30 MG/0.3 ML SYR SUBCUT SCH (18:36)
[2020-06-19] MEDS: Lidocaine Patch REMOVE PATCH PATCH OFF SCH (19:48)
[2020-06-19] MEDS: fentaNYL PATCH 25 MCG/HR 1 PATCH TRANSDERM SCH (23:57)
[2020-06-19] MEDS: fentaNYL PATCH 12 MCG/HR 1 PATCH TRANSDERM SCH (23:58)
[2020-06-20] MEDS: fentaNYL Patch Check Q Shift NOTE FOLLOW UP SCH ×2 (06:55→19:19)
[2020-06-20] MEDS: DULoxetine DR 20 mg CAP PO SCH (10:16)
[2020-06-20] MEDS: Mirabegron 50 mg ER TAB (NF) PO SCH (10:20)
[2020-06-20] MEDS: Calcium/Vitamin D TAB 250/125 TAB PO SCH ×2 (10:20→20:53)
[2020-06-20] MEDS: Enoxaparin 30 MG/0.3 ML SYR SUBCUT SCH (17:58)
[2020-06-20] MEDS: Senna TAB 8.6 mg TAB PO PRN (20:52)
[2020-06-20] MEDS: Lidocaine Patch REMOVE PATCH PATCH OFF SCH (20:56)
[2020-06-21 04:49] LABS: Hematocrit 30 % (35-47); Hemoglobin 9.7 g/dL (12.0-16.0); Mean Platelet Volume 9.3 fL (7.4-10.4); Platelet Count 148 10^3/uL (150-450)
[2020-06-21] MEDS: fentaNYL Patch Check Q Shift NOTE FOLLOW UP SCH ×2 (06:54→18:35)
[2020-06-21] MEDS: DULoxetine DR 20 mg CAP PO SCH (07:41)
[2020-06-21] MEDS: Calcium/Vitamin D TAB 250/125 TAB PO SCH ×2 (07:42→19:48)
[2020-06-21] MEDS: Mirabegron 50 mg ER TAB (NF) PO SCH (07:42)
[2020-06-21] MEDS: Enoxaparin 30 MG/0.3 ML SYR SUBCUT SCH (17:16)
[2020-06-21] MEDS: Lidocaine Patch REMOVE PATCH PATCH OFF SCH (19:49)
[2020-06-22] MEDS: fentaNYL Patch Check Q Shift NOTE FOLLOW UP SCH ×2 (07:32→19:18)
[2020-06-22] MEDS: DULoxetine DR 20 mg CAP PO SCH (10:04)
[2020-06-22] MEDS: Mirabegron 50 mg ER TAB (NF) PO SCH (10:06)
[2020-06-22] MEDS: Calcium/Vitamin D TAB 250/125 TAB PO SCH ×2 (10:08→21:54)
[2020-06-22] MEDS: Enoxaparin 30 MG/0.3 ML SYR SUBCUT SCH (17:36)
[2020-06-22] MEDS: Lidocaine Patch REMOVE PATCH PATCH OFF SCH (22:03)
[2020-06-23] MEDS: fentaNYL PATCH 12 MCG/HR 1 PATCH TRANSDERM SCH (00:06)
[2020-06-23] MEDS: fentaNYL PATCH 25 MCG/HR 1 PATCH TRANSDERM SCH (00:07)
[2020-06-23] MEDS: fentaNYL Patch Check Q Shift NOTE FOLLOW UP SCH ×2 (07:24→19:31)
[2020-06-23] MEDS: Mirabegron 50 mg ER TAB (NF) PO SCH (09:23)
[2020-06-23] MEDS: DULoxetine DR 20 mg CAP PO SCH (09:23)
[2020-06-23] MEDS: Calcium/Vitamin D TAB 250/125 TAB PO SCH ×2 (09:25→21:23)
[2020-06-23] MEDS: Enoxaparin 30 MG/0.3 ML SYR SUBCUT SCH (18:13)
[2020-06-23] MEDS: Lidocaine Patch REMOVE PATCH PATCH OFF SCH (21:24)
[2020-06-24] MEDS: fentaNYL Patch Check Q Shift NOTE FOLLOW UP SCH ×2 (07:29→19:48)
[2020-06-24] MEDS: Calcium/Vitamin D TAB 250/125 TAB PO SCH ×2 (09:27→22:35)
[2020-06-24] MEDS: DULoxetine DR 20 mg CAP PO SCH (09:28)
[2020-06-24] MEDS: Mirabegron 50 mg ER TAB (NF) PO SCH (09:53)
[2020-06-24] MEDS: Enoxaparin 30 MG/0.3 ML SYR SUBCUT SCH (18:18)
[2020-06-24] MEDS: Lidocaine Patch REMOVE PATCH PATCH OFF SCH (22:37)
[2020-06-25] MEDS: Calcium/Vitamin D TAB 250/125 TAB PO SCH ×2 (09:49→21:32)
[2020-06-25] MEDS: DULoxetine DR 20 mg CAP PO SCH (09:50)
[2020-06-25] MEDS: Mirabegron 50 mg ER TAB (NF) PO SCH (09:54)
[2020-06-25] MEDS: fentaNYL Patch Check Q Shift NOTE FOLLOW UP SCH ×2 (10:12→19:41)
[2020-06-25] MEDS: Enoxaparin 30 MG/0.3 ML SYR SUBCUT SCH (18:38)
[2020-06-25] MEDS: Lidocaine Patch REMOVE PATCH PATCH OFF SCH (21:35)
[2020-06-25] MEDS: Senna TAB 8.6 mg TAB PO PRN (21:39)
[2020-06-26] MEDS: fentaNYL PATCH 12 MCG/HR 1 PATCH TRANSDERM SCH (00:52)
[2020-06-26] MEDS: fentaNYL PATCH 25 MCG/HR 1 PATCH TRANSDERM SCH (00:53)
[2020-06-26] MEDS: fentaNYL Patch Check Q Shift NOTE FOLLOW UP SCH ×2 (07:07→19:18)
[2020-06-26] MEDS: Calcium/Vitamin D TAB 250/125 TAB PO SCH ×2 (10:40→20:22)
[2020-06-26] MEDS: DULoxetine DR 20 mg CAP PO SCH (10:40)
[2020-06-26] MEDS: Mirabegron 50 mg ER TAB (NF) PO SCH (10:44)
[2020-06-26] MEDS: Enoxaparin 30 MG/0.3 ML SYR SUBCUT SCH (17:29)
[2020-06-26] MEDS: Lidocaine Patch REMOVE PATCH PATCH OFF SCH (20:25)
[2020-06-26] MEDS: Senna TAB 8.6 mg TAB PO PRN (21:52)
[2020-06-27] MEDS: fentaNYL Patch Check Q Shift NOTE FOLLOW UP SCH (06:57)
[2020-06-27 07:58] VITALS: BP 104/61
[2020-06-27 08:51] LABS: BUN/Creatinine Ratio 28.6 (8-20); Calcium 8.6 mg/dL (8.6-10.3); EGFR African American 34.5 (>60); EGFR Non-African American 28.5 (>60); Potassium 4.5 mmol/L (3.5-5.0)
[2020-06-27] MEDS: DULoxetine DR 20 mg CAP PO SCH (08:58)
[2020-06-27] MEDS: Mirabegron 50 mg ER TAB (NF) PO SCH (09:00)
[2020-06-27] MEDS: Calcium/Vitamin D TAB 250/125 TAB PO SCH (09:04)
[2020-06-27] MEDS ORDERED: Polyethylene Glycol 3350 17 GM PACKET PO PRN (10:25)
[2020-06-27] MEDS ORDERED: Magnesium Hydroxide LIQ 30 ML UDC PO PRN (10:25)
[2020-06-27] MEDS: Lidocaine PATCH 5% PATCH TRANSDERM PRN (10:25)
== END 2020-06-27 16:40 | DRG 177 ==
LOC: MED 17:16 → SSU 06-22 20:16
PROVIDERS: ADMIT Internal Medicine; ATTEND Hospitalist

== ENCOUNTER 2020-07-03 18:55 | Inpatient (IN) ==
[2020-07-03] MEDS ORDERED: NS 0.9% 1000 ml BAG 1,000 ML IV ONE (19:08)
[2020-07-03] MEDS ORDERED: Ondansetron 4 mg VIAL 2 MG/ML 2 ml VIAL IV ONE ×2 (19:08→20:01)
[2020-07-03] MEDS ORDERED: Pantoprazole VIAL 40 MG VIAL IV ONE (19:11)
[2020-07-03 20:32] LABS: ABS Lymphocytes 0.6 10^3/ul (1.0-4.8); ABS Neutrophils 9.1 10^3/ul (1.5-7.7); Hematocrit 38 % (35-47); Hemoglobin 11.9 g/dL (12.0-16.0); Lymphocyte % 5.6 %; Mean Corpuscular HGB Conc 32 g/dL (31-36); Mean Corpuscular Hemoglobin 30 pg (27-31); Mean Corpuscular Volume 95 fL (80-97); Platelet Count 267 10^3/uL (150-450); Red Blood Count 3.93 10^6 /uL (3.70-4.87); Red Cell Distribution Width 15 % (10-15); White Blood Count 10.6 10^3/uL (3.5-10.8)
[2020-07-03 20:38] LABS: Activated Partial Thrombo Time 28.1 seconds (26.0-38.0); INR 1.2 (0.82-1.09)
[2020-07-03 20:49] LABS: Troponin I 0.01 ng/mL (<0.03)
[2020-07-03 20:51] LABS: Albumin 3.3 g/dL (3.2-5.2); BUN/Creatinine Ratio 24.3 (8-20); C Reactive Protein 75.32 mg/L (<8.01); Calcium 9.3 mg/dL (8.6-10.3); EGFR African American 41.8 (>60); EGFR Non-African American 34.6 (>60); Globulin 3.2 g/dL (2-4); Magnesium 1.8 mg/dL (1.9-2.7); Potassium 4.4 mmol/L (3.5-5.0); Total Bilirubin 0.4 mg/dL (0.2-1.0); Total Protein 6.5 g/dL (6.4-8.9)
[2020-07-03] MEDS ORDERED: Polyethylene Glycol 3350 17 GM PACKET PO PRN (22:51)
[2020-07-03] MEDS ORDERED: fentaNYL PATCH 12 MCG/HR 1 PATCH TRANSDERM SCH (23:00)
[2020-07-03] MEDS ORDERED: Lactated Ringers 1000 ml BAG 1,000 ML IV SCH (23:45)
[2020-07-04] MEDS: fentaNYL PATCH 25 MCG/HR 1 PATCH TRANSDERM SCH (03:25)
[2020-07-04] MEDS: fentaNYL PATCH 12 MCG/HR 1 PATCH TRANSDERM SCH (03:28)
[2020-07-04 06:33] LABS: Hematocrit 30 % (35-47); Hemoglobin 9.8 g/dL (12.0-16.0)
[2020-07-04] MEDS: fentaNYL Patch Check Q Shift NOTE FOLLOW UP SCH ×2 (07:13→19:01)
[2020-07-04] MEDS ORDERED: Pantoprazole VIAL 40 MG VIAL IV SCH (09:00)
[2020-07-04] MEDS ORDERED: Magnesium Sulfate 2 gm BAG 2 GM/50 ML BAG IVPB ONE (09:40)
[2020-07-04] MEDS: Mirabegron 50 mg ER TAB (NF) PO SCH (11:10)
[2020-07-04] MEDS: Solifenacin 5 mg TAB (NF) PO SCH (11:10)
[2020-07-04 11:30] LABS: Hematocrit 30 % (35-47); Hemoglobin 9.7 g/dL (12.0-16.0)
[2020-07-04] MEDS: Ondansetron 4 mg VIAL 2 MG/ML 2 ml VIAL IV PRN (12:29)
[2020-07-04] MEDS: Lactated Ringers 1000 ml BAG 1,000 ML IV SCH ×2 (12:29→18:03)
[2020-07-04] MEDS ORDERED: fentaNYL 100 mcg/2 ml 50 MCG/ML VIAL ONE (14:47)
[2020-07-04] MEDS ORDERED: Midazolam 10 mg/10 ml VIAL 1 mg/ml 10 ml VIAL (10 mg) ONE (14:48)
[2020-07-04 17:59] LABS: Hematocrit 32 % (35-47)
[2020-07-04] MEDS: Pantoprazole 80 mg in NS BAG 80 MG/250 ML BAG IV SCH (18:16)
[2020-07-04] MEDS: Lidocaine Patch REMOVE PATCH PATCH OFF SCH (22:45)
[2020-07-05 03:49] LABS: Urine Appearance Cloudy; Urine Color Yellow; Urine Specific Gravity 1.005 (1.010-1.030)
[2020-07-05 03:50] LABS: Urine Urobilinogen Negative (Negative)
[2020-07-05 03:51] LABS: Urine Blood Negative (Negative); Urine Ketones Negative (Negative); Urine Protein 2+(100 mg/dL) (Negative)
[2020-07-05 03:53] LABS: Urine Bilirubin Negative (Negative); Urine Glucose Negative (Negative); Urine Nitrite Positive (Negative); Urine Red Blood Cell Absent (Absent); Urine White Blood Cell 3+(>20/hpf) (Absent)
[2020-07-05 03:54] LABS: Urine Bacteria 1+ (Absent)
[2020-07-05] MEDS: Pantoprazole 80 mg in NS BAG 80 MG/250 ML BAG IV SCH ×2 (03:59→17:18)
[2020-07-05] MEDS: fentaNYL Patch Check Q Shift NOTE FOLLOW UP SCH ×2 (07:03→18:58)
[2020-07-05] MEDS: Lactated Ringers 1000 ml BAG 1,000 ML IV SCH ×2 (07:03→17:39)
[2020-07-05 07:28] LABS: Hematocrit 26 % (35-47); Hemoglobin 8.2 g/dL (12.0-16.0); Mean Corpuscular HGB Conc 32 g/dL (31-36); Mean Corpuscular Hemoglobin 30 pg (27-31); Mean Corpuscular Volume 94 fL (80-97); Mean Platelet Volume 8.6 fL (7.4-10.4); Platelet Count 185 10^3/uL (150-450); Red Blood Count 2.76 10^6 /uL (3.70-4.87); Red Cell Distribution Width 15 % (10-15); White Blood Count 5.3 10^3/uL (3.5-10.8)
[2020-07-05] MEDS: DULoxetine DR 20 mg CAP PO SCH (09:27)
[2020-07-05 09:31] LABS: BUN/Creatinine Ratio 27.4 (8-20); Calcium 8.6 mg/dL (8.6-10.3); EGFR African American 51.3 (>60); EGFR Non-African American 42.4 (>60); Magnesium 2.2 mg/dL (1.9-2.7); Potassium 4.3 mmol/L (3.5-5.0)
[2020-07-05] MEDS: Mirabegron 50 mg ER TAB (NF) PO SCH (10:32)
[2020-07-05] MEDS: Ondansetron 4 mg VIAL 2 MG/ML 2 ml VIAL IV PRN ×2 (11:47→17:36)
[2020-07-05] MEDS: Solifenacin 5 mg TAB (NF) PO SCH (12:20)
[2020-07-05] MEDS: Lidocaine PATCH 5% PATCH TRANSDERM PRN (12:35)
[2020-07-05 12:48] LABS: Hematocrit 31 % (35-47); Hemoglobin 9.8 g/dL (12.0-16.0)
[2020-07-05 18:29] LABS: Hematocrit 34 % (35-47)
[2020-07-05] MEDS: Lidocaine Patch REMOVE PATCH PATCH OFF SCH (22:55)
[2020-07-06] MEDS: Pantoprazole 80 mg in NS BAG 80 MG/250 ML BAG IV SCH ×4 (05:48→22:14)
[2020-07-06 06:37] LABS: Hematocrit 27 % (35-47); Hemoglobin 8.8 g/dL (12.0-16.0); Mean Corpuscular HGB Conc 32 g/dL (31-36); Mean Corpuscular Hemoglobin 30 pg (27-31); Mean Corpuscular Volume 93 fL (80-97); Mean Platelet Volume 8.5 fL (7.4-10.4); Platelet Count 201 10^3/uL (150-450); Red Blood Count 2.92 10^6 /uL (3.70-4.87); Red Cell Distribution Width 15 % (10-15); White Blood Count 5.9 10^3/uL (3.5-10.8)
[2020-07-06 06:50] LABS: BUN/Creatinine Ratio 21.6 (8-20); Calcium 8.6 mg/dL (8.6-10.3); EGFR African American 55.4 (>60); EGFR Non-African American 45.8 (>60); Potassium 4.2 mmol/L (3.5-5.0)
[2020-07-06] MEDS: fentaNYL Patch Check Q Shift NOTE FOLLOW UP SCH ×2 (06:55→19:34)
[2020-07-06] MEDS: Lactated Ringers 1000 ml BAG 1,000 ML IV SCH (09:14)
[2020-07-06] MEDS: Mirabegron 50 mg ER TAB (NF) PO SCH (09:19)
[2020-07-06] MEDS: DULoxetine DR 20 mg CAP PO SCH (09:19)
[2020-07-06] MEDS: Solifenacin 5 mg TAB (NF) PO SCH (09:20)
[2020-07-06] MEDS ORDERED: Senna TAB 8.6 mg TAB PO PRN (13:13)
[2020-07-06] MEDS: Lidocaine PATCH 5% PATCH TRANSDERM PRN (13:15)
[2020-07-06 16:22] LABS: Hematocrit 28 % (35-47); Hemoglobin 8.7 g/dL (12.0-16.0); Mean Corpuscular HGB Conc 32 g/dL (31-36); Mean Corpuscular Hemoglobin 30 pg (27-31); Mean Corpuscular Volume 95 fL (80-97); Mean Platelet Volume 8.3 fL (7.4-10.4); Platelet Count 208 10^3/uL (150-450); Red Cell Distribution Width 15 % (10-15); White Blood Count 6.4 10^3/uL (3.5-10.8)
[2020-07-06] MEDS: Lidocaine Patch REMOVE PATCH PATCH OFF SCH (20:23)
[2020-07-07] MEDS: fentaNYL PATCH 25 MCG/HR 1 PATCH TRANSDERM SCH (03:02)
[2020-07-07] MEDS: fentaNYL PATCH 12 MCG/HR 1 PATCH TRANSDERM SCH (03:02)
[2020-07-07] MEDS: Pantoprazole 80 mg in NS BAG 80 MG/250 ML BAG IV SCH (05:38)
[2020-07-07 06:43] LABS: Hematocrit 25 % (35-47); Mean Corpuscular HGB Conc 32 g/dL (31-36); Mean Corpuscular Hemoglobin 30 pg (27-31); Mean Corpuscular Volume 94 fL (80-97); Mean Platelet Volume 8.7 fL (7.4-10.4); Platelet Count 189 10^3/uL (150-450); Red Cell Distribution Width 15 % (10-15); White Blood Count 5.1 10^3/uL (3.5-10.8)
[2020-07-07 07:00] LABS: Anion Gap 4 mmol/L (2-11); Blood Urea Nitrogen 23 mg/dL (6-24); CO2 Carbon Dioxide 27 mmol/L (22-32); Calcium 8.5 mg/dL (8.6-10.3); Chloride 109 mmol/L (101-111); EGFR African American 49.5 (>60); EGFR Non-African American 40.9 (>60); Glucose 91 mg/dL (70-100); Sodium 140 mmol/L (135-145)
[2020-07-07] MEDS: fentaNYL Patch Check Q Shift NOTE FOLLOW UP SCH (07:29)
[2020-07-07] MEDS: Lidocaine PATCH 5% PATCH TRANSDERM PRN (09:27)
[2020-07-07] MEDS: DULoxetine DR 20 mg CAP PO SCH (09:28)
[2020-07-07] MEDS ORDERED: Polyethylene Glycol 3350 17 GM PACKET PO ONE (11:52)
[2020-07-07 12:14] LABS: Total Iron Binding Capacity 169 mcg/dL (250-450); Transferrin 121 mg/dL (203-362)
[2020-07-07 12:15] LABS: % Iron Saturation 12 % (15-55); Iron < 20 ug/dL (50-212); Unsaturated Iron Binding < 154 ug/dL
[2020-07-07 12:25] VITALS: BP 123/69
[2020-07-07 12:34] LABS: Ferritin 108.4 ng/mL (11-307)
== END 2020-07-07 16:10 | DRG 377 ==
LOC: ED 18:55 → MED 22:47
PROVIDERS: ADMIT Internal Medicine; ATTEND Internal Medicine